=== PATIENT | female | born 1990 | race Caucasian/White ===

== ENCOUNTER 2021-08-25 09:08 | Emergency (ER) | payer OTHER, SELFPAY ==
--- NOTE | ~2021-08-25 | US_ITS ---
EXAMINATION: US PELVIS CLINICAL INFORMATION: Pain. Rule out ovarian cyst. COMPARISON: None TECHNIQUE: Ultrasound of the pelvis is performed using both transabdominal and transvaginal transducers along with Doppler. Transvaginal imaging is performed due to inadequate visualization transabdominally. FINDINGS: The uterus is retroverted and retroflexed and measures 8.4 x 4.3 x 6 cm in dimension. There are 2 hypoechoic lesions in the uterus measuring 1.7 x 1 x 1.7 cm in the left uterine body and 4 mm in the posterior upper uterine body probably representing small fibroids. No other focal uterine lesion is seen. Endometrial thickness is normal measuring 1.2 cm. The right ovary is normal-appearing and measures 3.2 x 2.1 x 2.2 cm. The left ovary measures 3.4 x 2.1 x 2.4 cm. There is a complex left ovarian cyst measuring 2.3 x 1.7 x 2.4 cm. This is irregularly-shaped with thickened wall and likely represents an involuting physiologic cyst. There is a small amount of fluid in the pelvis. US/US pelvic and transvaginal IMPRESSION: Small uterine fibroids. 2.3 x 1.7 x 2.4 cm complex left ovarian cyst likely representing an involuting physiologic cyst.
[2021-08-25 10:05] VITALS: BP 132/91; PULSE 75; RESP 18; TEMP 37.1; O2SAT 97; BMI 32.1
--- NOTE | 2021-08-25 10:45 | ED.ABDPAIN ---
HPI - Abdominal Pain General Chief Complaint: Abdominal Pain Stated Complaint: Lower abd pain Time Seen by Provider: 08/25/21 10:32 Source: patient Mode of arrival: ambulatory Limitations: no limitations History of Present Illness HPI narrative: 31-year-old female came in for evaluation of abdominal pain. Lower abdominal pain started about a month ago, pain is intermittent, localized to the suprapubic area with no radiation, moderate 3/10, no aggravating factor, no relieving factor, frequent urination patient reported drinking plenty of water. Had 1 time unprotected sex 2 months ago but decline vaginal bleeding or discharge, patient has been tested for STD and had a detailed pelvic exam by her obstetrics and gynecology professor doctor reportedly was negative. Related Data Allergies Allergy/AdvReac Type Severity Reaction Status Date / Time No Known Allergies Allergy Verified 08/25/21 09:32 [No Known Allergies*] Review of Systems Review of Systems All other systems are reviewed and are negative Constitutional: Reports as per HPI and Reports no additional constitutional complaints Eyes: Reports as per HPI and Reports no additional eye complaints Reports system reviewed and no additional complaints, except as documented Cardiovascular: Reports as per HPI and Reports no additional cardiovascular complaints Respiratory: Reports as per HPI and Reports no additional respiratory complaints Gastrointestinal: Reports as per HPI and Reports no additional gastrointestinal complaints Genitourinary: Reports no additional female genitourinary complaints Musculoskeletal: Reports no additional musculoskeletal complaints Skin/Breast: Reports system reviewed and no additional complaints, except as docu Psychiatric: Reports no additional psychiatric complaints Endocrine: Reports no additional endocrine complaints Hematologic/Lymphatic: Reports no additional hematologic/lymphatic complaints Allergic/Immunologic: Reports no additional allergic/immunologic complaints Reports system reviewed and no additional complaints, except as documented and Reports Abnormal speech present [facility] Past Medical History Medical History No known health problems Social History Social History Alcohol intake: current Alcohol intake frequency: holidays/special occasions only Patient Tobacco Use Status: Current someday Tobacco user Use of substances other than those prescribed or required for medical reasons: No Advance Directives: No Physical Exam ED Vital Signs: Vital Signs - 24 hr 08/25/21 10:05 08/25/21 11:15 08/25/21 14:00 Temperature 98.8 F 98.3 F Pulse Rate 75 68 71 Respiratory Rate 18 18 16 Blood Pressure 132/91 H 122/75 127/90 H Pulse Oximetry 97 99 97 BMI result Body Mass Index 32.1 Vital signs have been reviewed as appeared to be correct. Blood pressure normal. Heart rate normal. Respiration rate normal. Temperature normal. Oxygen saturation normal. Appearance: Alert. Oriented X3. No acute distress. Head: Normal external exam. Normocephalic. Atraumatic. No Barber signs noted. No raccoon eyes noted Eyes: PERRLA. EOMI. Conjunctiva and sclera normal. Eyelids normal. ENT: TM's Normal. Pharynx normal. Uvula midline. Moist mucous membranes. No trismus noted. No drooling noted. No muffled voice noted. Neck: Normal inspection. Neck supple. FROM. No adenopathy. Thyroid Normal. No meningeal signs. No neck mass noted. CVS: Normal heart rate and rhythm. Heart sound normal. No murmurs noted. Pulses normal throughout. Respiratory: No respiratory distress. Painless inspiration. Breath sounds normal. No wheezes/rales/rhonchi noted. Chest nontender. No accessory muscle usage noted or decreased air movement noted. Abdomen: Soft and nontender. Bowel sounds normal in all 4 quadrants. No distention noted. No organomegaly noted. No visible injury noted. Pelvic exam: Deferred for ultrasound. Back: No CVA tenderness. Full range of motion noted. Skin: Skin warm and dry. Normal skin color. Normal skin turgor. No rashes/lesions/lacerations noted. Extremities: No lower extremity edema. Extremities exhibit normal range of motion. Extremities nontender. Neuro: Oriented X 3. Cranial nerve exam: II-XII are grossly intact No motor deficit. No sensory deficit. Reflexes normal. Course Course Course Narrative: Assessment and plan. A month of lower abdominal/pelvic pain. Patient has been evaluated by her own OBGYN and tested negative for STD, declined any symptoms of frequency or dysuria, abdominal exam/labs are unremarkable, pelvic ultrasound revealed small physiological left ovarian cyst. Finding were discussed with the patient patient was instructed to keep monitoring her symptoms which should disappear with using NSAIDs otherwise to follow up with her OBGYN for re-evaluation. MDM - Abdominal Pain Lab Data Attestation: I reviewed the patient's lab results. Result diagrams: 08/25/21 10:54 08/25/21 10:54 Labs: Lab Results 08/25/21 08/25/21 08/25/21 Range/Units 10: 10:22 10:54 WBC 3.0 L (4.8-10.8) X10*3/uL RBC 4.20 (4.20-5.50) X10*6/uL Hgb 12.4 (12.0-16.0) g/dl Hct 38.0 (37.0-47.0) % MCV 90.5 (80.0-98.0) fL MCH 29.5 (27.0-33.0) pg MCHC 32.6 (31.0-35.0) g/dl RDW 12.3 (11.0-16.0) % Plt Count 208 (160-400) X10*3/uL MPV 11.0 (9.4-12.3) fL Immature Gran % (Auto) 0.3 (0.0-0.4) % Neut % (Auto) 73.3 H (45-73) % Lymph % (Auto) 8.7 L (20-40) % [place] % (Auto) 15.1 H (2-11) % Eos % (Auto) 2.3 (0-4) % Baso % (Auto) 0.3 (0-2) % Lymph # (Auto) 0.3 L (1.2-4.9) X10*3/uL [place] # (Auto) 0.5 (0.1-1.2) X10*3/uL Eos # (Auto) 0.1 (0.0-0.4) X10*3/uL Baso # (Auto) 0.0 (0.0-0.2) X10*3/uL Abs Immat Gran (auto) 0.01 (0.00-0.03) X10*3/uL Absolute Neuts (auto) 2.2 (2.0-8.3) x10*3/uL Absolute Nucleated RBC 0.000 (0.0-0.012) X10*3/uL Nucleated RBC % (auto) 0.0 (0.0-0.2) /100WBC Sodium (135-145) mmol/L Potassium (3.3-5.1) mmol/L Chloride (96-108) mmol/L Carbon Dioxide (22-29) mmol/L Anion Gap (12-20) BUN (9-16) mg/dL Creatinine (0.5-1.4) mg/dL Estim Creat Clear Calc Estimated GFR Random Glucose (60-115) mg/dL Calcium (8.4-10.2) mg/dL Total Bilirubin (0.0-1.0) mg/dL Direct Bilirubin (0.0-0.5) mg/dL AST (5-31) U/L ALT (0-31) U/L Alkaline Phosphatase (39-117) U/L Total Protein (6.5-8.0) g/dL Albumin (3.5-5.0) g/dL Lipase (8-78) U/L Urine Color YELLOW Urine Appearance CLEAR Urine pH 6.5 (5.0-8.0) Ur Specific [place] 1.020 (1.005-1.025) Urine Protein NEG (NEG-TRACE) MG/DL Urine Glucose (UA) NEG (NEG) MG/DL Urine Ketones NEG (NEG) MG/DL Urine Blood NEG (NEG) Urine Nitrite NEG (NEG) Ur Leukocyte Esterase NEG (NEG) Urine Test NEGATIVE (NEGATIVE) 08/25/21 Range/Units 10:54 WBC (4.8-10.8) X10*3/uL RBC (4.20-5.50) X10*6/uL Hgb (12.0-16.0) g/dl Hct (37.0-47.0) % MCV (80.0-98.0) fL MCH (27.0-33.0) pg MCHC (31.0-35.0) g/dl RDW (11.0-16.0) % Plt Count (160-400) X10*3/uL MPV (9.4-12.3) fL Immature Gran % (Auto) (0.0-0.4) % Neut % (Auto) (45-73) % Lymph % (Auto) (20-40) % Christian % (Auto) (2-11) % Eos % (Auto) (0-4) % Baso % (Auto) (0-2) % Lymph # (Auto) (1.2-4.9) X10*3/uL [place] # (Auto) (0.1-1.2) X10*3/uL Eos # (Auto) (0.0-0.4) X10*3/uL Baso # (Auto) (0.0-0.2) X10*3/uL Abs Immat Gran (auto) (0.00-0.03) X10*3/uL Absolute Neuts (auto) (2.0-8.3) x10*3/uL Absolute Nucleated RBC (0.0-0.012) X10*3/uL Nucleated RBC % (auto) (0.0-0.2) /100WBC Sodium 139 (135-145) mmol/L Potassium 4.3 (3.3-5.1) mmol/L Chloride 107 (96-108) mmol/L Carbon Dioxide 27 (22-29) mmol/L Anion Gap 9 L (12-20) BUN 10 (9-16) mg/dL Creatinine 0.71 (0.5-1.4) mg/dL Estim Creat Clear Calc 143.7 Estimated GFR > 60 Random Glucose 104 (60-115) mg/dL Calcium 9.3 (8.4-10.2) mg/dL Total Bilirubin 0.5 (0.0-1.0) mg/dL Direct Bilirubin < 0.2 (0.0-0.5) mg/dL AST 16 (5-31) U/L ALT 32 H (0-31) U/L Alkaline Phosphatase 65 (39-117) U/L Total Protein 6.5 (6.5-8.0) g/dL Albumin 4.2 (3.5-5.0) g/dL Lipase 16 (8-78) U/L Urine Color Urine Appearance Urine pH (5.0-8.0) Ur Specific [place] (1.005-1.025) Urine Protein (NEG-TRACE) MG/DL Urine Glucose (UA) (NEG) MG/DL Urine Ketones (NEG) MG/DL Urine Blood (NEG) Urine Nitrite (NEG) Ur Leukocyte Esterase (NEG) Urine Test (NEGATIVE) Imaging Data Pelvic ultrasound: Attestation: I personally reviewed and interpreted this imaging study as follows: Radiologist's impression: Small uterine fibroids. 2.3 x 1.7 x 2.4 cm complex left ovarian cyst likely representing an involuting physiologic cyst. Discharge Plan Discharge Clinical Impression: Pelvic pain Patient Disposition: Home, Self-Care Instructions: Pelvic Pain in Women (ED) Referrals: Thang Carl MD [Primary Care Provider] -
[2021-08-25 10:59] LABS: MANUAL DIFF FLAG NO
[2021-08-25 11:00] LABS: Basophils Percent Auto 0.3 % (0-2); Eosinophils Absolute Auto 0.1 X10*3/uL (0.0-0.4); Eosinophils Percent Auto 2.3 % (0-4); Hemoglobin 12.4 g/dl (12.0-16.0); Imm Gran Abs Auto 0.01 X10*3/uL (0.00-0.03); Imm Gran Pct Auto 0.3 % (0.0-0.4); Lymphocytes Absolute Auto 0.3 X10*3/uL (1.2-4.9); Lymphocytes Percent Auto 8.7 % (20-40); Mean Corpuscular HGB Conc 32.6 g/dl (31.0-35.0); Mean Corpuscular Hemoglobin 29.5 pg (27.0-33.0); Mean Corpuscular Volume 90.5 fL (80.0-98.0); Monocytes Absolute Auto 0.5 X10*3/uL (0.1-1.2); Monocytes Percent Auto 15.1 % (2-11); Neutrophils Absolute Auto 2.2 x10*3/uL (2.0-8.3); Neutrophils Percent Auto 73.3 % (45-73); Platelet Count 208 X10*3/uL (160-400); Red Cell Distribution Width 12.3 % (11.0-16.0)
[2021-08-25 11:03] LABS: UPreg QC Valid YES; Urine Pregnancy NEGATIVE (NEGATIVE)
[2021-08-25 11:06] LABS: Appearance Urine CLEAR; Color Urine YELLOW; Glucose Urine UA NEG (NEG); Leukocyte Esterase Urine NEG (NEG); Nitrite Urine NEG (NEG); PH 6.5 (5.0-8.0); Urine Blood NEG (NEG); Urine Ketones NEG (NEG); Urine Protein NEG (NEG-TRACE)
[2021-08-25 11:15] VITALS: BP 122/75; PULSE 68; RESP 18; TEMP 36.8; O2SAT 99
--- NOTE | 2021-08-25 11:17 | PC.NURSE ---
patient a&ox3, vss, c/o 07/16 lower abd pain, labs drawn, call khan within reach, pt awaiting radiology, will continue to monitor.
[2021-08-25 11:21] LABS: Alanine Aminotransferase 32 U/L (0-31); Albumin Level 4.2 g/dL (3.5-5.0); Alkaline Phosphatase 65 U/L (39-117); Anion Gap 9 (12-20); Aspartate Amino Transferase 16 U/L (5-31); Bilirubin Direct < 0.2 mg/dL (0.0-0.5); Bilirubin Total 0.5 mg/dL (0.0-1.0); Blood Urea Nitrogen 10 mg/dL (9-16); Calcium 9.3 mg/dL (8.4-10.2); Carbon Dioxide 27 mmol/L (22-29); Chloride 107 mmol/L (96-108); Creatinine Clr Calc Pharmacy 143.7; Estimated Glomerular Filt Rate > 60; Glucose Random 104 mg/dL (60-115); Lipase 16 U/L (8-78); Potassium 4.3 mmol/L (3.3-5.1); Sodium 139 mmol/L (135-145); Total Protein 6.5 g/dL (6.5-8.0)
[2021-08-25 14:00] VITALS: BP 127/90; PULSE 71; RESP 16; O2SAT 97
--- NOTE | 2021-08-25 14:19 | PC.NURSE ---
pt a&ox3, vss, pt denies pain at this time, provider in room reviewing u/s results with pt. discharge pending.
== END 2021-08-25 14:37 | disposition home or self-care (01) ==
PROVIDERS: Emergency Provider Emergency Medicine; PCP Internal Medicine
DX: R10.2 Pelvic and perineal pain (principal); Z79.899 Other long term (current) drug therapy
CPT/HCPCS: 36415; 76830; 76856; 80048; 80076; 81003; 81025; 83690; 85025; 99284

== ENCOUNTER 2023-05-15 16:39 | Observation (INO) | payer MEDICAID, SELFPAY ==
[2023-05-15 16:43] VITALS: BP 132/85; PULSE 76; RESP 18; TEMP 36.6; O2SAT 98; BMI 27.1
--- NOTE | 2023-05-15 16:58 | ED.NEUROSD ---
HPI - Neuro Symptoms/Deficit General Chief Complaint: Stroke Stated Complaint: headache x1 wk,facial numbness,mouth drooping Time Seen by Provider: 05/15/23 16:52 Source: patient Mode of arrival: ambulatory Limitations: no limitations History of Present Illness HPI Narrative: Patient is a 33-year-old female with history of MS presenting to the emergency department with complaint of right sided facial numbness and droop since around noon yesterday as well as headache for the past week. States headache has been moderate, waxing and waning in intensity. Denies headache worst at onset, denies worst headache of life. Describes as a pressure to right side of head and right side of face. Has taken Tylenol and ibuprofen with some relief. States she sees Dr. Mona Rosenthal for her MS, but missed a recent appointment in early April, is only taking sertraline currently. She is also 2 months , intermittently. Reports mild blurred vision to right eye, denies any other visual changes. Denies chest pain, palpitations, shortness of breath. Denies any abdominal pain, nausea, vomiting, diarrhea. Denies any recent rashes or tick bites. States she does have endorse/outdoor cats. Denies recent fevers, body aches, cough or sore throat. Onset (ago): day(s) Location: right face History of same: No Severity: moderate Quality: weak and numb Relieving factors: none Exacerbating factors: none Context: gradual onset On Anticoagulants: No Treatments Prior to Arrival: none Related Data Allergies Allergy/AdvReac Type Severity Reaction Status Date / Time Iodinated Contrast Media Allergy Hives Verified 05/15/23 16:43 [Contrast Dye] Review of Systems Review of Systems: As per HPI. Yes all other systems are reviewed and are negative Constitutional: Constitutional: Reports as per HPI ENT: Reports Normal hearing present Neurologic: Reports Normal hearing present [facility] Past Medical History Onset Date is defined in the Problem List Problems that require an onset date and time if occurred within 24 hrs of arrival to the ED Aortic Dissection and Rupture; Neurologic impairment; Cardiopulmonary Arrest; Endotracheal Intubation; Insertion or Replacement of Mechanical Circulatory Assist Device Medical History No known health problems Social History Social History Alcohol intake: current Alcohol intake frequency: a few times a week Patient Tobacco Use Status: Current someday Tobacco user Smoked in Last 30 Days: No Use of substances other than those prescribed or required for medical reasons: No Advance Directives: No Advance Directives Information Provided: No Patient : No Physical Exam Vital Signs: Vital Signs: Last Vital Signs Temp 97.8 F 05/15/23 16:43 Pulse 68 05/15/23 18:46 Resp 12 05/15/23 18:46 BP 104/60 05/15/23 18:46 Pulse Ox 98 05/15/23 18:46 O2 Del Method Room Air 05/15/23 18:46 BMI result Body Mass Index 27.1 Vital signs have been reviewed and appear to be correct. Blood pressure normal. Heart rate normal. Respiratory rate normal. Temperature normal. Oxygen saturation normal. Const: General: cooperative, healthy appearing and no acute distress Orientation/consciousness: oriented to person, oriented to place, oriented to time and patient oriented x3 Limitations: no limitations HEENT: Head: Yes normocephalic and Yes atraumatic Ears: external ears normal General nose exam: Normal external nose present Face and sinus: Yes face symmetric Mouth: oropharynx normal and moist mucous membranes Throat: Yes uvula midline Eyes: Pupils: Equal, round and reactive pupils present Neck: Neck: Yes normal visual inspection, Yes no meningeal signs and Yes supple Resp: Effort & Inspection: normal respiratory effort and able to speak in complete sentences Auscultation: clear to auscultation bilaterally Cardio: Rate: regular rate Rhythm: regular rhythm Heart sounds: S1 normal heart sound present and S2 normal heart sound present GI: Palpation (GI): Soft to palpation and nontender Auscultation: normoactive bowel sounds : General: Yes no CVA tenderness Back/Spine/Pelvis: Back: no CVA tenderness Skin: General skin exam: elasticity normal and turgor normal Neuro: General: oriented to person, oriented to place, oriented to time, patient oriented x3, gait normal, tone normal, moves all extremities, Normal light touch and pain sensation, no meningeal signs and no focal motor deficits Cranial nerves: Yes Intact sense of smell present, Yes Equal, round and reactive pupils present, Yes Normal accommodation reflex present, Yes Bilaterally intact EOM present, Yes Nystagmus not present, Yes Midline tongue present, Yes Normal gag reflex present, Yes Normal hearing present, Yes Ability to bilaterally rotate head present, Yes Ability to bilaterally elevate shoulders present, Yes Individual cranial nerve findings present VIII: abnormal (right) and No Altered sense of smell present Cognition (Neuro): normal cognition Gait exam (Neuro): Normal gait present Motor exam (neuro): 5/5 motor strength present throughout, Pronator motor function not present, no tremor noted, Normal motor muscle tone present throughout and Motor abnormalities not present Sensory Exam: Normal double simultaneous stimulation for sensation Coordination: [id number] test normal and [id number] test normal Pupils: Normal pupillary reactivity/response: bilateral Extrem: General: Yes full ROM, Yes no pedal edema and Yes no calf tenderness Psych: Mental Status: mental status grossly normal Affect: normal affect Thought process: Normal thought process present Medical Decision Making Medical Decision Making MDM Narrative: Patient is a 33-year-old female with history of MS presenting to the emergency department with complaint of right sided facial numbness and droop since around noon yesterday as well as headache for the past week. On exam patient is awake, A+Ox3, VS WNL, afebrile, physical exam findings as above. Given reported symptoms and physical exam findings, initial differential includes Boss's palsy, MS flare, migraine, malignancy/mass. Less likely CVA/ICH but will obtain CT head. Patient is not currently hypertensive but will assess for possible preeclampsia/HELLP. Labs notable for no leukocytosis, no anemia, mildly elevated ALT, normal AST and bilirubin, no electrolyte abnormalities. Bp remains normal while in the ED. Viral swabs negative. Tick panel pending. CT notable for rounded hypodense focus of the right frontoparietal lobe of unclear etiology, may represent infarction vs vascular malformation vs infectious/inflammatory vs oncologic etiology. My interpretation is in agreement with the radiologist's interpretation. Case discussed with Dr. Montero from neuro who recommends admission for MRI tomorrow, states patient does not need emergent MRI tonight. Results and plan discussed with patient who is agreeable to admission. Dr. Fritz accepts admission. Differential Diagnosis Differential Diagnoses: The differential diagnosis associated with the presentation includes As per MDM Admission/Observation Consideration of admission/observation: Escalation of care including admission/observation considered Consult Healthcare Provider Management of the patient was discussed with: Hospitalist (Dr. Fritz) and Optical Goods Worker (Dr. Montero) Lab Data [facility] Lab Attestation statement: I reviewed the patient's lab results. As per MDM 05/15/23 17:05 05/15/23 17:05 Labs: Lab Results 05/15/23 05/15/23 05/15/23 Range/Units 17:05 17:20 17:24 WBC 5.8 (4.8-10.8) X10*3/uL RBC 4.20 (4.20-5.50) X10*6/uL Hgb 12.1 (12.0-16.0) g/dl Hct 36.4 L (37.0-47.0) % MCV 86.7 (80.0-98.0) fL MCH 28.8 (27.0-33.0) pg MCHC 33.2 (31.0-35.0) g/dl RDW 13.0 (11.0-16.0) % Plt Count 251 (160-400) X10*3/uL MPV 10.7 (9.4-12.3) fL Immature Gran % (Auto) 0.7 H (0.0-0.4) % Neut % (Auto) 61.7 (45-73) % Lymph % (Auto) 24.5 (20-40) % [place] % (Auto) 10.7 (2-11) % Eos % (Auto) 1.7 (0-4) % Baso % (Auto) 0.7 (0-2) % Lymph # (Auto) 1.4 (1.2-4.9) X10*3/uL [place] # (Auto) 0.6 (0.1-1.2) X10*3/uL Eos # (Auto) 0.1 (0.0-0.4) X10*3/uL Baso # (Auto) 0.0 (0.0-0.2) X10*3/uL Abs Immat Gran (auto) 0.04 H (0.00-0.03) X10*3/uL Absolute Neuts (auto) 3.6 (2.0-8.3) x10*3/uL Absolute Nucleated RBC 0.000 (0.0-0.012) X10*3/uL Nucleated RBC % (auto) 0.0 (0.0-0.2) /100WBC PT 10.5 L (11.1-13.3) SEC INR 0.9 (0.9-1.1) Sodium 138 (135-145) mmol/L Potassium 4.0 (3.3-5.1) mmol/L Chloride 105 (96-108) mmol/L Carbon Dioxide 25 (22-29) mmol/L Anion Gap 12 (12-20) BUN 16 (9-16) mg/dL Creatinine 0.70 (0.5-1.4) mg/dL Estim Creat Clear Calc 131.8 Estimated GFR > 60 POC Glucose 84 (60-115) mg/dL Random Glucose 90 (60-115) mg/dL Calcium 9.4 (8.4-10.2) mg/dL Magnesium 2.1 (1.6-2.6) mg/dL Total Bilirubin 0.2 (0.0-1.0) mg/dL AST 24 (5-31) U/L ALT 46 H (0-31) U/L Alkaline Phosphatase 71 (39-117) U/L Total Protein 7.1 (6.5-8.0) g/dL Albumin 4.3 (3.5-5.0) g/dL Beta HCG, Quant < 2 mIU/mL Urine Color Yellow Urine Appearance Cloudy Urine pH 6.5 (5.0-9.0) Ur Specific [place] 1.025 (1.005-1.025) Urine Protein Negative (Neg-Trace) mg/dL Urine Glucose (UA) Negative (Negative) mg/dL Urine Ketones Negative (Negative) mg/dL Urine Blood Negative (Negative) Urine Nitrite Negative (Negative) Ur Leukocyte Esterase Trace H (Negative) Urine RBC 0-2 (0-2) /HPF Urine WBC 0-5 (0-5) /HPF Ur Squamous Epith Cells 11-20 (0-2) /HPF Urine Bacteria 2+ (None Seen) Hyaline Casts 0-2 (0-2) /LPF Influenza Type A (PCR) NEGATIVE (Negative) Influenza Type B (PCR) NEGATIVE (Negative) RSV RNA Qual (PCR) NEGATIVE (Negative) SARS-CoV-2 RNA (RT-PCR) NEGATIVE (Negative) Independent Interpretation I performed an independent interpretation of an: EKG (normal sinus rhythm, rate 70bpm, normal GA and QT intervals) and CT Scan Interpretation: hypodense focus in right frontoparietal lobe on CT Radiology Impression Discussion of test interpretation with radiology: I have reviewed the radiologist's reading. Radiologist Impression: CT/CT head/brain wo IV con IMPRESSION: Rounded hypodense focus in the region of the right frontoparietal lobe abutting the lateral margin of the centrum semiovale measuring 2.1 x 1.2 x 1.1 cm of unclear etiology may reflect infarction versus vascular malformation versus infectious/inflammatory versus oncologic etiology. Consider further evaluation with MRI. This critical result was discussed with Doris Samuels NP by telephone on 05/15/2023 7:37 PM and it was ascertained that the content and urgency of the report was understood at the time of direct communication. External Record Review External record reviewed: Inpatient record, Office record and Outpatient record NIH Stroke Scale Internal: Initial- Upon Arrival Time: 17:03 Level of Consciousness: Alert Level of Consciousness Questions: Answers both questions correctly Level of Consciousness Commands: Performs both tasks correctly Best Gaze: Normal Visual: No visual loss Facial Palsy: Partial paralysis (right, including forehead) Motor Arm (Right): No drift Motor Arm (Left): No drift Motor Leg (Right): No drift Motor Leg (Left): No drift Limb Ataxia: Absent Sensory: Normal Best Language: No aphasia Dysarthia: Normal Extinction and Inattention: No abnormality Score: 2 Discharge Plan Discharge Clinical Impression: Facial paralysis on right side, Headache Patient Disposition: Admitted As Inpatient
--- NOTE | 2023-05-15 17:10 | PC.NURSE ---
a&ox4, vss and up to date. pt presents to the ED w/ questionable stroke like sx. stroke alert not called for pt. pt comes in with headache x 1 week/right sided facial droop/numbness/tingling x 1 day. pt has a hx of MS so states she waited to come in d/t thinking sx were related to diagnosis of MS. tech obtained labs/performed ekg. pt verbalizes numbness/tingling in bilateral LE but ambulates to the bathroom with a strong steady gait. no assistance needed. urine obtained/sent to lab. POC = 84mg/dL. pt passed nursing swallow screen w/o difficulty. neuros intact. bilateral equal strength noted. no sob/wob noted. respirations even and unlabored. pt waiting to go to CT at this time. call khan placed within reach.
[2023-05-15 18:46] VITALS: BP 104/60; PULSE 68; RESP 12; O2SAT 98
--- NOTE | 2023-05-15 18:47 | PC.NURSE ---
vss and up to date. nsr on the pasting machine operator. pt c/o 07/16 headache at this time. states sensation is pressure like. denies any other sx at this time. face symmetrical. neuros intact. pt awaiting results of head CT at this time. respirations remain even and unlabored. call khan placed within reach.
[2023-05-15 20:34] VITALS: BP 122/68; PULSE 72; RESP 18; O2SAT 97
--- NOTE | 2023-05-15 20:41 | PM.IMHP ---
History of Present Illness Date of Service: 05/15/23 Attending physician on admission: Boom Fritz Chief Complaint: Headache x1 week, right-sided facial droop Pt is a 33-year-old female with a PMH significant for?MS, depression, and 2 months who presents to the ED for evaluation of right-sided headache x1 week and right-sided facial numbness since yesterday afternoon. Pt states headache began gradually one week ago and has waxed and waned since inception, though never fully resolved. Describes headache as a kind of ?pressure? on the right side of her head. Pt has previously experienced similar episodes of headaches though not for the past 1+ year, so thought little of it until yesterday when she felt a numbness to the right side of her face. Denies knowing of any facial weakness until examined int he ED. Also reports mild increased blurriness to right eye. Patient denies any drooling, dysarthria, or dysphagia. Denies any difficulty word-finding or moments of confusion. Patient has long history of chronic numbness and tingling and weakness in extremities since being diagnosed with MS. States has had right-sided leg weakness for at least the past 3 months. Denies fever, chills, nausea, vomiting, abdominal pain. No shortness of breath. Patient notes she is overdue by around 1 year for an MRI of her brain. Apparently missed her most recent appointment in early April with Dr. Mona Rosenthal for her MS. In the ED pt was hemodynamically stable with vitals WNL. Labs were grossly unremarkable. No leukocytosis. Stable H&H. No electrolyte abnormalities. Renal function WNL. UA negative for UTI. Tested negative for influenza type a and B, RSV, COVID. Tick panel pending. CT of head found rounded hypodense focus in the region of the right frontoparietal lobe abutting the lateral margin of the centrum semiovale of unclear etiology, may reflect infarction versus vascular malformation versus infectious/inflammatory versus oncologic etiology. EKG demonstrated normal sinus rhythm without evidence of ST elevations or depressions. Pt will be admitted to the hospital under observation for further evaluation of right-sided facial numbness and weakness and abnormal findings on CT of head. Review of Systems Review of Systems: Right-sided facial numbness since yesterday Gradual onset right-sided headache x1 week Right eye blurriness Chronic numbness and tingling in extremities Chronic right lower leg weakness Denies dysarthria, dysphagia, drooling Denies confusion No thunderclap headache [facility] Medical History (Updated 05/15/23 @ 21:43 by AMALIA Galindo) Multiple sclerosis No known health problems Social History Alcohol intake: current Alcohol intake frequency: a few times a week Patient Tobacco Use Status: Current someday Tobacco user Smoked in Last 30 Days: No Use of substances other than those prescribed or required for medical reasons: No Advance Directives: No Advance Directives Information Provided: No Patient : No Meds Allergies Allergy/AdvReac Type Severity Reaction Status Date / Time Iodinated Contrast Media Allergy Hives Verified 05/15/23 16:43 [Contrast Dye] Active Medications: Current Medications Acetaminophen (Acetaminophen 325 Mg Tablet) 650 mg PO Q6H PRN PRN Reason: Pain, Mild (Pain Scale 1-3) Enoxaparin Sodium (Enoxaparin Sodium 40 Mg/0.4 Ml Syringe) 40 mg SUBCUT Q24H BERNARDA Melatonin (Melatonin 3 Mg Tablet) 6 mg PO BEDTIME PRN PRN Reason: Insomnia Ondansetron HCl (Ondansetron Hcl 4 Mg/2 Ml Vial) 4 mg IVPUSH Q8H PRN PRN Reason: Nausea and Vomiting Sodium Chloride (0.9 % Sodium Chloride Flush 3 Ml Syringe) 3 ml IVFLUSH QSHIFT BERNARDA Physical Exam Vital Signs and Narrative: Vital Signs: Last Vital Signs Temp 97.8 F 05/15/23 16:43 Pulse 68 05/15/23 18:46 Resp 12 05/15/23 18:46 BP 104/60 05/15/23 18:46 Pulse Ox 98 05/15/23 18:46 O2 Del Method Room Air 05/15/23 18:46 BMI result Body Mass Index 27.1 Constitutional: Alert, in no acute distress. Mental Status: Oriented to person, place and time. Eyes: Pupils are equal, round, and reactive to light. Ear, Nose, and Throat: Oropharynx clear, mucous membranes moist. Ears and nose without deformities. Trachea midline. Respiratory: Clear to auscultation bilaterally. No wheezing, rales, or rhonchi. Cardiovascular: S1, S2 regular. No murmurs, rubs, or gallops. Gastrointestinal: Abdomen soft, non-tender, non-distended. Normal bowel sounds. Neurologic: Unable to puff out right side of mouth or raise right eyebrow. Moves all extremities spontaneously. Preserved strength and sensation to light touch of upper and lower extremities bilaterally. Skin: Warm, dry. Musculoskeletal: No cyanosis or clubbing. Extremities: No edema. Psychiatric: Normal mood and affect. Results Labs 05/15/23 17:05 05/15/23 17:05 Labs: Laboratory Results - last 24 hr 05/15/23 05/15/23 05/15/23 17:05 17:20 17:24 MCV 86.7 MCH 28.8 MCHC 33.2 RDW 13.0 Plt Count 251 MPV 10.7 Immature Gran % (Auto) 0.7 H Neut % (Auto) 61.7 Lymph % (Auto) 24.5 [place] % (Auto) 10.7 Eos % (Auto) 1.7 Baso % (Auto) 0.7 Lymph # (Auto) 1.4 [place] # (Auto) 0.6 Eos # (Auto) 0.1 Baso # (Auto) 0.0 Abs Immat Gran (auto) 0.04 H Absolute Neuts (auto) 3.6 Absolute Nucleated RBC 0.000 Nucleated RBC % (auto) 0.0 PT 10.5 L INR 0.9 Anion Gap 12 Estim Creat Clear Calc 131.8 Estimated GFR > 60 POC Glucose 84 Random Glucose 90 Calcium 9.4 Magnesium 2.1 Total Bilirubin 0.2 AST 24 ALT 46 H Alkaline Phosphatase 71 Total Protein 7.1 Albumin 4.3 Beta HCG, Quant < 2 Urine Color Yellow Urine Appearance Cloudy Urine pH 6.5 Ur Specific Toney 1.025 Urine Protein Negative Urine Glucose (UA) Negative Urine Ketones Negative Urine Blood Negative Urine Nitrite Negative Ur Leukocyte Esterase Trace H Urine RBC 0-2 Urine WBC 0-5 Ur Squamous Epith Cells 11-20 Urine Bacteria 2+ Hyaline Casts 0-2 Influenza Type A (PCR) NEGATIVE Influenza Type B (PCR) NEGATIVE RSV RNA Qual (PCR) NEGATIVE SARS-CoV-2 RNA (RT-PCR) NEGATIVE Imaging Radiologist's Impressions: Impressions Head CT 05/15/23 18:06 IMPRESSION: Rounded hypodense focus in the region of the right frontoparietal lobe abutting the lateral margin of the centrum semiovale measuring 2.1 x 1.2 x 1.1 cm of unclear etiology may reflect infarction versus vascular malformation versus infectious/inflammatory versus oncologic etiology. Consider further evaluation with MRI. This critical result was discussed with Doris Samuels NP by telephone on 05/15/2023 7:37 PM and it was ascertained that the content and urgency of the report was understood at the time of direct communication. Assessment and Plan (1) Facial paralysis on right side: Status: Acute Plan Pt is a 33-year-old female with a PMH significant for?MS, depression, and 2 months who presents to the ED for evaluation of right-sided headache x1 week and right-sided facial numbness since yesterday afternoon. Pt will be admitted to the hospital under observation for further evaluation of right-sided facial numbness and weakness and abnormal findings on CT of head. Right-sided facial weakness and drooping CT of head showed rounded hypodense focus in the region of the right frontoparietal lobe of unclear etiology: May reflect infarction versus vascular malformation versus infectious/inflammatory versus oncologic etiology Boss's palsy versus MS exacerbation also on the differential Patient treated with aspirin Will get MRI of head/brain tomorrow morning Will check tick panel Neurology consult Will defer any additional imaging or diagnostic testing to neurology MS Patient currently not on any home medications Depression Continue sertraline Full Code Attending:?Dr. Fritz DVT Prophylaxis: Zuri Patient will be admitted to the hospital under observation for further evaluation of right-sided facial numbness and weakness in the setting of abnormal findings on CT of head. Quality Stroke Does the patient have a stroke diagnosis?: No VTE Prior VTE?: No VTE Risk Level:: Medical - moderate - high VTE Device Contraindication: Treatment Not Indicated VTE Drug Contraindication: N/A - Med Ordered
--- NOTE | 2023-05-15 23:16 | PC.NURSE ---
Pt to nurses station stating you guys are going to hate me but I think I am going to leave . Pt further explained how her spouse is having a hard time at home with their 2 month old daughter and how she plans to return in the morning for the MRI. Pt advised that she would have to go through the entire process (minus a CT scan) in the morning due to the discharge all of which she verbalized understanding of. RN meaghan ESTRELLA Lam aware and he states that he will be down to speak with her.
--- NOTE | 2023-05-15 23:35 | PC.NURSE ---
MD Fritz to bedside to discuss pt's request for discharge AMA. After conversation per MD Fritz the pt is now agreeable to stay. Rn will continue to monitor the pt
[2023-05-16 05:31] VITALS: BP 114/69; PULSE 73; RESP 15; TEMP 36.7; O2SAT 98
[2023-05-16 07:24] LABS: Anion Gap 13 (12-20); Blood Urea Nitrogen 12 mg/dL (9-16); Calcium 9.7 mg/dL (8.4-10.2); Carbon Dioxide 28 mmol/L (22-29); Chloride 104 mmol/L (96-108); Creatinine Clr Calc Pharmacy 128.2; Estimated Glomerular Filt Rate > 60; Glucose Random 82 mg/dL (60-115); Potassium 4.3 mmol/L (3.3-5.1); Sodium 141 mmol/L (135-145)
[2023-05-16 07:41] VITALS: BP 115/87; PULSE 75; RESP 18; O2SAT 99
--- NOTE | 2023-05-16 07:48 | PC.NURSE ---
pt alert and oriented, skin pwd, respirations even and unlabored, ls clear, pt reports for about three weeks or so having right sided head pressure but denies dizziness, no visual hand drift, hand grasp strong and equal but a very slight right facial droop, ns on the monitor and vs stable
--- NOTE | 2023-05-16 07:49 | PHA.MEDREC ---
Pharmacy Consult ? Medication Reconciliation Pharmacy has completed the medication reconciliation. Spoke to patient at bedside
--- NOTE | 2023-05-16 08:48 | MHC.CM.PN ---
CM met with Patient at bedside and addressed HERRMANN with her; original was given to Patient and a copy will be placed on the chart. 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 Home self care is the goal and CM has initiated and will follow for dc planning. PCP is from [facility] in [place].
--- NOTE | 2023-05-16 09:13 | PM.NEUROCN ---
History of Present Illness Data of Consult Service Date: 05/16/23 Primary Care Provider: Unknown Physician HPI Reason for consult: Facial numbness 33 years old woman with remitting relapsing multiple sclerosis that was diagnosed many years ago in [facility] and she was taking Jilenya (fingolimod) until winter when it was stopped because of for plan for . She delivered her baby couple of months ago and has not been taking her medicines during this time. She came to hospital with new onset of right-sided headache and right-sided facial numbness that started at due to before coming to hospital. There was no recent trauma or fever or any sign of urinary tract infection. There was no speech or language difficulty. She has an appointment to see a neurologist next month to discuss starting medicine again. Review of Systems Review of Systems: No recent cold or flu-like illness PMFSH Past Medical History Medical History (Updated 05/16/23 @ 09:18 by Manuel Montero MD) Multiple sclerosis No known health problems Social History Social History Alcohol intake: current Alcohol intake frequency: a few times a week Patient Tobacco Use Status: Never used Tobacco Smoked in Last 30 Days: No Use of substances other than those prescribed or required for medical reasons: No Advance Directives: No Advance Directives Information Provided: No Nutrition Risks: No Nutritional Risk Patient : No service: No Meds Allergies Allergy/AdvReac Type Severity Reaction Status Date / Time Iodinated Contrast Media Allergy Hives Verified 05/15/23 16:43 [Contrast Dye] Active Medications: Current Medications Acetaminophen (Acetaminophen 325 Mg Tablet) 650 mg PO Q6H PRN PRN Reason: Pain, Mild (Pain Scale 1-3) Enoxaparin Sodium (Enoxaparin Sodium 40 Mg/0.4 Ml Syringe) 40 mg SUBCUT Q24H BERNARDA Last Admin: 05/15/23 22:13 Dose: 40 mg Methylprednisolone Sodium Succinate 1,000 mg/ Sodium Chloride 66 mls @ 66 mls/hr IV ONCE ONE Stop: 05/16/23 10:29 Melatonin (Melatonin 3 Mg Tablet) 6 mg PO BEDTIME PRN PRN Reason: Insomnia Ondansetron HCl (Ondansetron Hcl 4 Mg/2 Ml Vial) 4 mg IVPUSH Q8H PRN PRN Reason: Nausea and Vomiting Sertraline HCl (Sertraline Hcl 50 Mg Tablet) 50 mg PO DAILY BERNARDA Sodium Chloride (0.9 % Sodium Chloride Flush 3 Ml Syringe) 3 ml IVFLUSH QSHIFT BERNARDA Last Admin: 05/16/23 07:44 Dose: 3 ml Home Medications Medication Instructions Recorded Confirmed Last Taken Type sertraline 50 mg tablet 50 mg PO DAILY 05/16/23 05/16/23 05/14/23 History Physical Exam Vital Signs: Vital Signs: Last Vital Signs Temp 98.0 F 05/16/23 05:31 Pulse 75 05/16/23 07:41 Resp 18 05/16/23 07:41 BP 115/87 05/16/23 07:41 Pulse Ox 99 05/16/23 07:41 O2 Del Method Room Air 05/16/23 07:41 BMI result Body Mass Index 27.1 Neuro: Other: She is alert and awake with normal spontaneity of speech fluency comprehension and affect. There is mild left-sided facial flatness. There is no obvious focal arm or leg weakness. Speech is normal. Visual alvarado are full. Results Labs 05/16/23 05:03 05/16/23 05:03 Labs: Short CBC 05/15/23 05/16/23 Range/Units 17:05 05:03 WBC 5.8 5.7 (4.8-10.8) X10*3/uL Hgb 12.1 12.7 (12.0-16.0) g/dl Hct 36.4 L 39.1 (37.0-47.0) % Plt Count 251 241 (160-400) X10*3/uL BMP 05/15/23 05/16/23 17:05 05:03 Sodium 138 141 Potassium 4.0 4.3 Chloride 105 104 Carbon Dioxide 25 28 BUN 16 12 Creatinine 0.70 0.72 Calcium 9.4 9.7 Liver Function 05/15/23 Range/Units 17:05 Total Bilirubin 0.2 (0.0-1.0) mg/dL AST 24 (5-31) U/L ALT 46 H (0-31) U/L Alkaline Phosphatase 71 (39-117) U/L Albumin 4.3 (3.5-5.0) g/dL Urine 05/15/23 Range/Units 17:24 Urine Color Yellow Urine Appearance Cloudy Urine pH 6.5 (5.0-9.0) Ur Specific [place] 1.025 (1.005-1.025) Urine Protein Negative (Neg-Trace) mg/dL Urine Glucose (UA) Negative (Negative) mg/dL Her brain MRI revealed multiple lesions suggestive of demyelinating disease, couple of small ones in left frontal area visible on DWI sequence. Her previous MRI in this hospital was in 2009, which was remarkably different from this 1 with almost no lesions. Assessment and Plan (1) Multiple sclerosis: Status: Acute 33 years old woman with remitting relapsing multiple sclerosis stopped taking immunomodulating drug because of . her condition has worsened, which sometime happens. At this time my recommendation is to treat her with Solu-Medrol a g a day for 3 days. She was strongly encouraged and advised to restart immunomodulating agent. She said that she already has an appointment with a neurologist in few weeks and would discuss this matter with her. Procedures Date of Service Date of Service: 05/16/23
--- NOTE | 2023-05-16 09:57 | PC.NURSE ---
patient a&ox3, vitals previously stable, traffic monitor specialist intact nsr on monitor, rt facial droop noted-pt states she has no pain but feels head pressure, pt asking if she can discharge to get home back to her after her solumedrol infusion, this nurse stated she will touch base with hospitalist to see if this is possible.
--- NOTE | 2023-05-16 10:11 | MHC.CM.PN ---
Patient is listed as, self pay, ; a referral has been made to [facility]. CM will follow.
--- NOTE | 2023-05-16 10:56 | PC.NURSE ---
pharmacy brought medications, hung per order, residential monitor intact nsr 70s , pt to discharge after infusion, will continue to monitor
--- NOTE | 2023-05-16 11:04 | MHC.SL.SWA ---
Speech Pathologist Impression: Swallow WFL Risk of Aspiration Due to: Neurological Condition Dysphasia Diet Status: Upgrade to Regular solids and Thin liquids Liquid Consistency and Strategies for Safe Swallow: Liquid Intake Recommendation: Thin Liquid Intake Strategies: Unrestricted Solid Food Consistency: Dietary Recommendations: Regular Additional Modifications to Solid Foods: Pt w/ mild oral phase impairment in the setting of right side facial droop, which is evident at rest and with labial retraction. Lingual movements WFL in symmetry, strength, and ROM. Pt spilled some liquid when bringing the cup to her mouth, but did not evidence anterior bolus loss with further trials. Unremarkable oral preparation on solids. Swallow otherwise deemed to be within functional limits. Recommend UPGRADE from NPO to REGULAR texture solids and THIN liquids, pills WHOLE with LIQUID. Pt denies having any difficulties swallowing historically and presently. Please re-refer if there are any changes or if STACKER TENDER can be of further assistance. Oral Medication Intake: Whole with Liquid Please contact the pharmacy regarding appropriate crushable or liquid drug formulations that are available whenever modified delivery is recommended. Compensatory Strategies and Precautions to be Taken for Safe Swallow: Sitting Upright (90 deg) Small Bites and Sips Rate of Ingestion Change Supervision While Eating and Drinking for Safe Swallow: None Needed Recommendation for Speech: NA:Typical Evaluation Outpatient Speech Therapy Comment: Swallow deemed to be WFL. Pt may benefit from outpatient speech therapy for oral motor training should right side facial droop persist. Retail General Manager Clinican/Clinical Fellow: No Supervisory Statement: I have reviewed and agree with the student/clinical fellow's documentation: N/A Speech Language Pathologist: Erika Brooks M.A., CCC-STACKER TENDER
--- NOTE | 2023-05-16 11:28 | MHC.CM.PN ---
Addendum entered by Mariah Garcia 05/16/23 15:42: Pt working w/[facility] to correct her health insurance issue. She has an appt on 05/17 at 8:30 and will likely be reauthorized for [employer]. Information relayed to short stay RN Addendum entered by Mariah Garcia 05/16/23 14:58: Call placed to pt to inform her of appointments for IV infusions on 05/17 and 05/18 at 2:30pm in short stay infusion suite. Pt aware and in agreement. Original Note: This CM assisting w/arrangement of outpt IV solu medrol: Pt will need to come to short stay on 05/17 and 05/18 for IV SoluMedrol dosing completion. Short Stay RN coordinating infusion orders w/[facility] neuro who was consulted. Pt will be discharged to home today after 12pm infusion. ED RN updated on plan to include on pt d/c instructions.
--- NOTE | 2023-05-16 12:45 | PM.DS ---
DS: Providers Provider Date of Service: 05/16/23 Date of admission: 05/15/23 20:34 Primary care physician: Unknown Physician Consults: 05/15/23 20:34 Consult to Neurology Routine Consulting Provider: [facility] Reason for consultation: facial droop DS: Diagnosis Discharge Diagnosis (1) Multiple sclerosis: Status: Acute DS: Summary Hospital Course Hospital Course: Date of Service: 05/15/23 Attending physician on admission: Boom Fritz Chief Complaint: Headache x1 week, right-sided facial droop Pt is a 33-year-old female with a PMH significant for?MS, depression, and 2 months who presents to the ED for evaluation of right-sided headache x1 week and right-sided facial numbness since yesterday afternoon. Pt states headache began gradually one week ago and has waxed and waned since inception, though never fully resolved. Describes headache as a kind of ?pressure? on the right side of her head. Pt has previously experienced similar episodes of headaches though not for the past 1+ year, so thought little of it until yesterday when she felt a numbness to the right side of her face. Denies knowing of any facial weakness until examined int he ED. Also reports mild increased blurriness to right eye. Patient denies any drooling, dysarthria, or dysphagia. Denies any difficulty word-finding or moments of confusion. Patient has long history of chronic numbness and tingling and weakness in extremities since being diagnosed with MS. States has had right-sided leg weakness for at least the past 3 months. Denies fever, chills, nausea, vomiting, abdominal pain. No shortness of breath. Patient notes she is overdue by around 1 year for an MRI of her brain. Apparently missed her most recent appointment in early April with Dr. Mona Rosenthal for her MS. In the ED pt was hemodynamically stable with vitals WNL. Labs were grossly unremarkable. No leukocytosis. Stable H&H. No electrolyte abnormalities. Renal function WNL. UA negative for UTI. Tested negative for influenza type a and B, RSV, COVID. Tick panel pending. CT of head found rounded hypodense focus in the region of the right frontoparietal lobe abutting the lateral margin of the centrum semiovale of unclear etiology, may reflect infarction versus vascular malformation versus infectious/inflammatory versus oncologic etiology. EKG demonstrated normal sinus rhythm without evidence of ST elevations or depressions. Pt will be admitted to the hospital under observation for further evaluation of right-sided facial numbness and weakness and abnormal findings on CT of head. Hospital course: 33-year-old female with a PMH significant for?MS, depression, and 2 months who presents to the ED for evaluation of right-sided headache x1 week and right-sided facial numbness since yesterday afternoon. Pt admitted to the hospital for new right-sided facial numbness and weakness and abnormal findings on CT of head, subsequently she underwent MRI study that showed multiple lesions suggestive of demyelinating disease, and couple of small lesions in the left frontal area, patient evaluated by Dr. Montero from Neurology he recommended IV Solu-Medrol 1 g daily for 3 days and strongly recommended patient to restart immunomodulating agent, the to discontinued since patient was and gave 2 months ago, patient has an appointment with her primary neurologist in few weeks, patient received 1 dose of IV Solu-Medrol in the hospital and will receive 2 other dosages as outpatient at short-stay surgery.. MS recommend outpatient follow-up with Neurology Depression Continue sertraline Time Attestation Discharge coordination time: Greater than 30 minutes Quality: Safe Use of Opioids Does Pt have an Active Cancer Diagnosis on the Problem List?: No Quality: Stroke Does the patient have a stroke diagnosis?: No Physical Exam Vital Signs: Vital Signs: Last Vital Signs Temp 98.0 F 05/16/23 05:31 Pulse 75 05/16/23 07:41 Resp 18 05/16/23 07:41 BP 115/87 05/16/23 07:41 Pulse Ox 99 05/16/23 07:41 O2 Del Method Room Air 05/16/23 07:41 BMI result Body Mass Index 27.1 Const: Other: General awake alert x3, resting comfortably in no acute distress. Anicteric sclera Neck supple no JVD. CVS regular rate rhythm, Respiratory lungs clear to auscultation, no respiratory distress, no wheeze, no rhonchi. Gastrointestinal abdomen soft, nontender, bowel sounds audible, no guarding , no rigidity. Extremities no edema. Neuro right sided facial weakness, unable to raise right eyebrow, speech clear, normal strength bilateral upper and lower extremities Skin no rash Psych appropriate affect. DS: Data Data Completed and Pending Labs on day of discharge: Laboratory Results - last 24 hr 05/15/23 05/15/23 05/15/23 17:05 17:20 17:24 WBC 5.8 RBC 4.20 Hgb 12.1 Hct 36.4 L MCV 86.7 MCH 28.8 MCHC 33.2 RDW 13.0 Plt Count 251 MPV 10.7 Immature Gran % (Auto) 0.7 H Neut % (Auto) 61.7 Lymph % (Auto) 24.5 [place] % (Auto) 10.7 Eos % (Auto) 1.7 Baso % (Auto) 0.7 Lymph # (Auto) 1.4 [place] # (Auto) 0.6 Eos # (Auto) 0.1 Baso # (Auto) 0.0 Abs Immat Gran (auto) 0.04 H Absolute Neuts (auto) 3.6 Absolute Nucleated RBC 0.000 Nucleated RBC % (auto) 0.0 PT 10.5 L INR 0.9 Sodium 138 Potassium 4.0 Chloride 105 Carbon Dioxide 25 Anion Gap 12 BUN 16 Creatinine 0.70 Estim Creat Clear Calc 131.8 Estimated GFR > 60 POC Glucose 84 Random Glucose 90 Calcium 9.4 Magnesium 2.1 Total Bilirubin 0.2 AST 24 ALT 46 H Alkaline Phosphatase 71 Total Protein 7.1 Albumin 4.3 Beta HCG, Quant < 2 Urine Color Yellow Urine Appearance Cloudy Urine pH 6.5 Ur Specific [place] 1.025 Urine Protein Negative Urine Glucose (UA) Negative Urine Ketones Negative Urine Blood Negative Urine Nitrite Negative Ur Leukocyte Esterase Trace H Urine RBC 0-2 Urine WBC 0-5 Ur Squamous Epith Cells 11-20 Urine Bacteria 2+ Hyaline Casts 0-2 Influenza Type A (PCR) NEGATIVE Influenza Type B (PCR) NEGATIVE RSV RNA Qual (PCR) NEGATIVE SARS-CoV-2 RNA (RT-PCR) NEGATIVE 05/16/23 05:03 WBC 5.7 RBC 4.42 Hgb 12.7 Hct 39.1 MCV 88.5 MCH 28.7 MCHC 32.5 RDW 13.1 Plt Count 241 MPV 11.4 Immature Gran % (Auto) 0.7 H Neut % (Auto) 65.9 Lymph % (Auto) 22.8 [place] % (Auto) 7.9 Eos % (Auto) 1.8 Baso % (Auto) 0.9 Lymph # (Auto) 1.3 [place] # (Auto) 0.5 Eos # (Auto) 0.1 Baso # (Auto) 0.1 Abs Immat Gran (auto) 0.04 H Absolute Neuts (auto) 3.8 Absolute Nucleated RBC 0.000 Nucleated RBC % (auto) 0.0 PT INR Sodium 141 Potassium 4.3 Chloride 104 Carbon Dioxide 28 Anion Gap 13 BUN 12 Creatinine 0.72 Estim Creat Clear Calc 128.2 Estimated GFR > 60 POC Glucose Random Glucose 82 Calcium 9.7 Magnesium Total Bilirubin AST ALT Alkaline Phosphatase Total Protein Albumin Beta HCG, Quant Urine Color Urine Appearance Urine pH Ur Specific [place] Urine Protein Urine Glucose (UA) Urine Ketones Urine Blood Urine Nitrite Ur Leukocyte Esterase Urine RBC Urine WBC Ur Squamous Epith Cells Urine Bacteria Hyaline Casts Influenza Type A (PCR) Influenza Type B (PCR) RSV RNA Qual (PCR) SARS-CoV-2 RNA (RT-PCR) Discharge Plan Discharge Anticipated Discharge Date/Time: 05/16/23 10:39 Patient Disposition: Home, Self-Care Discharge Diagnosis: MS flare Referrals: Physician,Unknown J [Primary Care Provider] - 1 Week Discharge Medications: Continued sertraline 50 mg tablet 50 mg PO DAILY Discharge Orders: Discharge Order (Routine); Ordered 05/16/23 Ordered By: Gail Collins Diet: Advance to usual diet Activity on Discharge: As tolerated Stand Alone Forms: Patient Portal Discharge page Care Plan Goals: Recommend IV Solu Medrol 1 g daily for 2 more dosages Health Concerns: Multiple sclerosis Take home medications as before Plan of Treatment: Outpatient follow-up with Neurology, call for appointment Assessment: as above Discharge Date/Time: 05/16/23 12:53
[2023-05-17 22:14] LABS: A. Phagocytphilium DNA,RT-PCR NOT DETECTED (NOT DETECTED); Babesia Microti DNA, RT-PCR NOT DETECTED (NOT DETECTED); Borrelia Miyamotoi,DNA RT-PCR NOT DETECTED (NOT DETECTED); E.Chaffeensis DNA RT-PCR NOT DETECTED (NOT DETECTED); Lyme(Borrelia ssp)DNA RT-PCR NOT DETECTED (NOT DETECTED)
== END 2023-05-16 12:53 | disposition home or self-care (01) ==
LOC: HO.ED 21:02 → HO.EDOVER 21:17
PROVIDERS: Registered Nurse Emergency; Admitting Provider Student in an Organized Health Care Education/Training Program; Emergency Provider Student in an Organized Health Care Education/Training Program; Visit Provider Hospitalist
DX: G35 Multiple sclerosis (principal); R29.810 Facial weakness; R51.9 Headache, unspecified; F32.A Depression, unspecified
CPT/HCPCS: 0241U; 36415; 70450; 70551; 80048; 80053; 81001; 82947; 83735; 84702; 85025; 85610; 87468; 87469; 87478; 87484; 87798; 92610; 93005; 96372; 96374; 99222; 99285; J1650; J2930

== ENCOUNTER → 2023-05-15 17:04 | Outpatient (BNV) | payer MEDICAID, SELFPAY | PROVIDERS: Admitting Provider Student in an Organized Health Care Education/Training Program; Emergency Provider Student in an Organized Health Care Education/Training Program; Visit Provider Internal Medicine Cardiovascular Disease | DX: G51.0 Bell's palsy (principal) | CPT/HCPCS: 93010 ==

== ENCOUNTER → 2023-05-15 20:34 | Outpatient (BNV) | payer MEDICAID, SELFPAY | PROVIDERS: Admitting Provider Student in an Organized Health Care Education/Training Program; Emergency Provider Student in an Organized Health Care Education/Training Program; Visit Provider Student in an Organized Health Care Education/Training Program | DX: G35 Multiple sclerosis (principal); G51.0 Bell's palsy | CPT/HCPCS: 99222; 99239 ==

== ENCOUNTER 2023-05-17 15:01 | Outpatient (REF) | payer MEDICAID, SELFPAY | END 2023-05-17 15:02 | disposition home or self-care (01) | LOC: HO.MDS 15:01 | PROVIDERS: Visit Provider Psychiatry & Neurology Neurology | DX: G35 Multiple sclerosis (principal) | CPT/HCPCS: 96365; J2930 ==

== ENCOUNTER 2023-05-18 14:29 | Outpatient (REF) | payer MEDICAID, SELFPAY | END 2023-05-18 14:30 | disposition home or self-care (01) | LOC: HO.MDS 14:29 | PROVIDERS: Visit Provider Psychiatry & Neurology Neurology | DX: G35 Multiple sclerosis (principal) | CPT/HCPCS: 96365; J2930 ==

== ENCOUNTER 2023-12-04 09:07 | Emergency (ER) | payer OTHER, SELFPAY ==
[2023-12-04 09:20] VITALS: BP 129/100; PULSE 94; RESP 20; TEMP 37.2; O2SAT 98; BMI 29.5
[2023-12-04 09:41] LABS: MANUAL DIFF FLAG NO
[2023-12-04 09:42] LABS: Basophils Absolute Auto 0.1 X10*3/uL (0.0-0.2); Basophils Percent Auto 0.9 % (0-2); Eosinophils Absolute Auto 0.2 X10*3/uL (0.0-0.4); Eosinophils Percent Auto 2.8 % (0-4); Hematocrit 39.4 % (37.0-47.0); Hemoglobin 13.6 g/dl (12.0-16.0); Imm Gran Abs Auto 0.04 X10*3/uL (0.00-0.03); Imm Gran Pct Auto 0.7 % (0.0-0.4); Lymphocytes Absolute Auto 0.9 X10*3/uL (1.2-4.9); Lymphocytes Percent Auto 15.2 % (20-40); Mean Corpuscular HGB Conc 34.5 g/dl (31.0-35.0); Mean Corpuscular Hemoglobin 30.6 pg (27.0-33.0); Mean Corpuscular Volume 88.5 fL (80.0-98.0); Mean Platelet Volume 11.2 fL (9.4-12.3); Monocytes Absolute Auto 0.8 X10*3/uL (0.1-1.2); Monocytes Percent Auto 14.7 % (2-11); Neutrophils Absolute Auto 3.8 x10*3/uL (2.0-8.3); Neutrophils Percent Auto 65.7 % (45-73); Platelet Count 227 X10*3/uL (160-400); Red Blood Count 4.45 X10*6/uL (4.20-5.50); Red Cell Distribution Width 12.2 % (11.0-16.0); White Blood Count 5.7 X10*3/uL (4.8-10.8)
[2023-12-04 10:36] LABS: IDNOW Serial# 08D9AD1C; Strep A Nucleic Acid Negative (Negative)
[2023-12-04 10:43] LABS: Influenza A PCR NEGATIVE (Negative); Influenza B PCR NEGATIVE (Negative); Resp Syncy Virus RNA Qual PCR NEGATIVE (Negative); SARS COV2 PCR INHOUSE NEGATIVE (Negative)
--- NOTE | 2023-12-04 11:00 | ED.URI ---
HPI - URI/Sore Throat General Chief Complaint: Upper Respiratory Symptoms Stated Complaint: Sore throat/Eye irritation Time Seen by Provider: 12/04/23 09:29 Source: patient Mode of arrival: ambulatory Limitations: no limitations History of Present Illness ED Provider: Skye Castellano APRN HPI Narrative: 33-year-old female with a history of MS currently receiving infusions (last infusion Tuesday) here with complaints of 5 days of sore throat, bilateral eye itching and drainage, coughing, headache. Patient reports that her children are sick at home with the same symptoms. She did go to [facility] 2 days ago and was tested for strep which was negative. She was told that she had a virus and to continue supportive measures at home as well as olopatadine eye drops. She denies vision changes, chest pain, shortness of breath, neck pain, vomiting, diarrhea, abdominal pain, skin rash. No fevers or chills. Related Data Home Medications ?Medication ?Instructions ?Recorded ?Confirmed sertraline 50 mg tablet 50 mg PO DAILY 05/16/23 05/16/23 Allergies Allergy/AdvReac Type Severity Reaction Status Date / Time Iodinated Contrast Media Allergy Hives Verified 12/04/23 09:23 [Contrast Dye] Review of Systems Review of Systems: Yes all other systems are reviewed and are negative Constitutional: Constitutional: Reports no additional constitutional complaints, Denies body ache(s), Denies chills, Reports fatigue, Denies fever(s), Reports headache(s) and Denies weakness Eyes: Eyes: Reports no additional eye complaints, Denies change in vision, Reports eye discharge and Reports irritation ENT: Reports system reviewed and no additional complaints, except as documented, Denies dizziness, Reports headache(s), Denies nasal congestion, Denies nasal discharge, Denies neck pain and Reports sore throat Cardiovascular: Cardiovascular: Reports no additional cardiovascular complaints, Denies chest pain, Denies leg edema and Denies dyspnea Respiratory: Respiratory: Reports no additional respiratory complaints, Reports cough and Denies dyspnea Gastrointestinal: Gastrointestinal: Reports no additional gastrointestinal complaints, Denies abdominal pain, Denies diarrhea, Denies nausea and Denies vomiting Genitourinary: Genitourinary: Reports no additional female genitourinary complaints and Denies urinary incontinence Musculoskeletal: Musculoskeletal: Reports no additional musculoskeletal complaints, Denies back pain, Denies arthralgias, Denies joint swelling, Denies neck pain, Denies numbness and Denies tingling Integumentary/Breasts: Skin/Breast: Reports system reviewed and no additional complaints, except as docu and Denies rash Neurologic: Reports system reviewed and no additional complaints, except as documented, Denies Abnormal speech present, Denies dizziness, Reports headache(s), Denies numbness, Denies tingling and Denies weakness Endocrine: Endocrine: Reports fatigue PMF Past Medical History Attestation statement: The following information was validated with the patient. Source: old records reviewed and nursing notes reviewed Medical History Multiple sclerosis No known health problems Social History Social History Alcohol intake: current Alcohol intake frequency: a few times a week Patient Tobacco Use Status: Never used Tobacco Advance Directives: No Advance Directives Information Provided: Yes Do you have a plan to hurt others: No Plan service: No Physical Exam Vital Signs: Vital Signs: Last Vital Signs Temp 98.9 F 12/04/23 09:20 Pulse 94 12/04/23 09:20 Resp 20 12/04/23 09:20 BP 129/100 H 12/04/23 09:20 Pulse Ox 98 12/04/23 09:20 O2 Del Method Room Air 12/04/23 09:20 BMI result Body Mass Index 29.5 Const: General: cooperative, healthy appearing, comfortable and no acute distress Orientation/consciousness: patient oriented x3 Limitations: no limitations HEENT: Head: Yes normal to inspection Ears: hearing grossly normal bilaterally and TM's normal bilaterally General nose exam: Normal external nose present Face and sinus: Yes normal facial exam Mouth: Normal oral and palatal mucosa present Throat: Yes posterior oropharynx normal, Yes tonsils normal and Yes uvula midline Eyes: Other: Injection to bilateral conjunctiva General: appearance normal, both eyes and all related structures Visual Alvarado: normal visual alvarado by confrontation Alignment and Position: alignment normal Periorbital: periorbital findings normal Eyelids: Yes eyelids normal Pupils: Equal, round and reactive pupils present EOM: EOMs intact bilaterally Direct Ophthalmoscopy: normal light reflex Neck: Neck: Yes normal visual inspection, Yes full ROM, Yes no lymphadenopathy and Yes no meningeal signs Chest: Chest palpation & inspection: normal inspection of the chest Resp: Effort & Inspection: normal respiratory effort Auscultation: clear to auscultation bilaterally Cardio: Rate: regular rate Rhythm: regular rhythm Peripheral pulses: Peripheral pulses 2+ throughout GI: Inspection: Yes normal to inspection Palpation (GI): Soft to palpation and nontender Auscultation: normal bowel sounds Back/Spine/Pelvis: Thoracic/Lumbar Spine: thoracic and lumbar spine normal to inspection Skin: General skin exam: no rashes or lesions noted Neuro: General: patient oriented x3, no meningeal signs, no focal motor deficits and normal sensation to monofilament Cranial nerves: Yes Equal, round and reactive pupils present Cognition (Neuro): normal cognition Speech: No Abnormal speech present Gait exam (Neuro): Normal gait present Motor exam (neuro): 5/5 motor strength present throughout Extrem: General: Yes normal to inspection Medical Decision Making Medical Decision Making [facility] Narrative: 33-year-old female with a history of MS currently receiving infusions (last infusion Tuesday) here with complaints of 5 days of sore throat, bilateral eye itching and drainage, coughing, headache. Patient reports that her children are sick at home with the same symptoms. She did go to [facility] 2 days ago and was tested for strep which was negative. She was told that she had a virus and to continue supportive measures at home as well as olopatadine eye drops. She denies vision changes, chest pain, shortness of breath, neck pain, vomiting, diarrhea, abdominal pain, skin rash. No fevers or chills. Injection to bilateral conjunctiva. Exam is otherwise normal. Will send testing for strep, COVID/flu/RSV Patient had a CBC ordered from triage which i will review Likely viral syndrome Differential Diagnosis Differential Diagnoses: The differential diagnosis associated with the presentation includes Viral syndrome, influenza Low suspicion for strep pharyngitis, RPA, [employer], bacterial conjunctivitis, meningitis Admission/Observation Consideration of admission/observation: Escalation of care including admission/observation considered Low suspicion for RPA, [employer], meningitis requiring advanced imaging, consultation, admission Lab Data [facility] Lab Attestation statement: I reviewed the patient's lab results. 12/04/23 09:30 Labs: Lab Results 12/04/23 12/04/23 Range/Units 09:30 09:31 WBC 5.7 (4.8-10.8) X10*3/uL RBC 4.45 (4.20-5.50) X10*6/uL Hgb 13.6 (12.0-16.0) g/dl Hct 39.4 (37.0-47.0) % MCV 88.5 (80.0-98.0) fL MCH 30.6 (27.0-33.0) pg MCHC 34.5 (31.0-35.0) g/dl RDW 12.2 (11.0-16.0) % Plt Count 227 (160-400) X10*3/uL MPV 11.2 (9.4-12.3) fL Immature Gran % (Auto) 0.7 H (0.0-0.4) % Neut % (Auto) 65.7 (45-73) % Lymph % (Auto) 15.2 L (20-40) % [place] % (Auto) 14.7 H (2-11) % Eos % (Auto) 2.8 (0-4) % Baso % (Auto) 0.9 (0-2) % Lymph # (Auto) 0.9 L (1.2-4.9) X10*3/uL [place] # (Auto) 0.8 (0.1-1.2) X10*3/uL Eos # (Auto) 0.2 (0.0-0.4) X10*3/uL Baso # (Auto) 0.1 (0.0-0.2) X10*3/uL Abs Immat Gran (auto) 0.04 H (0.00-0.03) X10*3/uL Absolute Neuts (auto) 3.8 (2.0-8.3) x10*3/uL Absolute Nucleated RBC 0.000 (0.0-0.012) X10*3/uL Nucleated RBC % (auto) 0.0 (0.0-0.2) /100WBC Influenza Type A (PCR) NEGATIVE (Negative) Influenza Type B (PCR) NEGATIVE (Negative) RSV RNA Qual (PCR) NEGATIVE (Negative) SARS-CoV-2 RNA (RT-PCR) NEGATIVE (Negative) S. pyogenes GrpA PARTH Negative (Negative) Tests considered The following testing was considered but not selected: low suspicion for RPA, [employer], meningitis requiring advanced imaging Prescription Management I considered prescription management with: Antibiotic Discharge Plan Discharge Clinical Impression: Viral infection Patient Disposition: Home, Self-Care Instructions: Viral Syndrome (ED) Additional Instructions: Your testing for strep, flu, COVID, RSV are negative Take Motrin or Tylenol for any pain or fever Increase fluids, rest Follow-up with primary care doctor for any continued symptoms. Return to the emergency room for any worsening symptoms Prescriptions: No Action sertraline 50 mg tablet 50 mg PO DAILY Referrals: Physician,Unknown J [Primary Care Provider] - 5 days Stand Alone Forms: Work/School Release Print Language: Dominican
[2023-12-04 11:18] VITALS: BP 129/100; PULSE 94; RESP 20; TEMP 37.2; O2SAT 98
== END 2023-12-04 11:19 | disposition home or self-care (01) ==
PROVIDERS: Emergency Provider Emergency Medicine
DX: B34.9 Viral infection, unspecified (principal); J02.9 Acute pharyngitis, unspecified; Z03.818 Encounter for observation for suspected exposure to other biological agents ruled out; Z79.899 Other long term (current) drug therapy
CPT/HCPCS: 0241U; 85025; 87651; 99283

== ENCOUNTER 2024-05-03 16:49 | Emergency (ER) | payer OTHER, SELFPAY ==
--- NOTE | ~2024-05-03 | CT_ITS ---
EXAMINATION: CT ABDOMEN AND PELVIS WITHOUT CONTRAST CLINICAL INFORMATION: Abdominal pain. COMPARISON: None available. TECHNIQUE: Multidetector volumetric imaging was performed from the superior aspect of the liver through the pubic symphysis. Sagittal and coronal reformatted images were obtained on the technologist's workstation. This CT examination was performed using dose optimization techniques as appropriate, variously including the following: *Automated exposure control *Adjustment of mA and/or kV according to patient size (this includes techniques or standardized protocols for targeted exams where dose is matched to indication/reason for exam; i.e. extremities or head) *Use of iterative reconstruction technique DLP: 655 mGy-cm FINDINGS: LUNG BASES: The visualized lung bases are unremarkable. LIVER, GALLBLADDER, AND BILIARY TREE: The liver is normal in size, shape, and attenuation. No focal hepatic lesion or biliary ductal dilatation is present. The gallbladder is unremarkable with no evidence of radiopaque gallstones, gallbladder wall thickening, or obvious pericholecystic inflammatory changes. PANCREAS: Unremarkable. SPLEEN: Unremarkable. ADRENAL GLANDS: Unremarkable. KIDNEYS AND URETERS: The kidneys are normal in size, shape, and attenuation. No hydronephrosis, hydroureter, or calculi seen. No perinephric stranding. BLADDER: Unremarkable. GASTROINTESTINAL TRACT: The small and large bowel are unremarkable. The appendix is unremarkable. ABDOMINAL WALL: No significant hernia is appreciated. LYMPH NODES: Normal. VASCULAR: Unremarkable. PELVIC VISCERA: Unremarkable. OSSEOUS STRUCTURES: Unremarkable. CT/CT abdomen pelvis wo IV con IMPRESSION: No significant abnormality. Fleischner guidelines were followed. Electronically signed by: Ki Reese MD 05/04/2024 01:39 AM EST
[2024-05-03 17:44] VITALS: BP 127/77; PULSE 75; RESP 18; TEMP 36.9; O2SAT 100; BMI 29.4
--- NOTE | 2024-05-03 17:45 | ED.GENADULT ---
HPI - General Adult General Chief complaint: Abdominal Pain Stated complaint: lower abd pain Time Seen by Provider: 05/03/24 23:52 Source: patient Mode of arrival: ambulatory Limitations: no limitations History of Present Illness ED Provider: DR. Olivo HPI narrative: 34-year-old female came in for evaluation of right-sided abdominal pain for the past 2 days described as a constant pain associated with nausea but no vomiting, no fever, no chills patient also feel bloated and distended, last bowel movement was this morning and was normal with no blood, passing flatus, never had intra-abdominal surgery in the past. No dysuria, no frequency urination, no hematuria. Sexually active with 1 person with no risk for STDs. Related Data Home Medications ?Medication ?Instructions ?Recorded ?Confirmed sertraline 50 mg tablet 50 mg PO DAILY 05/16/23 05/16/23 Previous Rx's ?Medication ?Instructions ?Recorded nitrofurantoin 100 mg PO BID #14 caps 05/04/24 monohydrate/macrocrystals 100 mg capsule (Macrobid) Allergies Allergy/AdvReac Type Severity Reaction Status Date / Time Iodinated Contrast Media Allergy Hives Verified 05/03/24 17:46 [Contrast Dye] Review of Systems Review of Systems: All other systems are reviewed and are negative Constitutional: Reports as per HPI and Reports no additional constitutional complaints Eyes: Reports as per HPI and Reports no additional eye complaints Reports system reviewed and no additional complaints, except as documented Cardiovascular: Reports as per HPI and Reports no additional cardiovascular complaints Respiratory: Reports as per HPI and Reports no additional respiratory complaints Gastrointestinal: Reports as per HPI and Reports no additional gastrointestinal complaints Genitourinary: Reports no additional female genitourinary complaints Musculoskeletal: Reports no additional musculoskeletal complaints Skin/Breast: Reports system reviewed and no additional complaints, except as docu Psychiatric: Reports no additional psychiatric complaints Endocrine: Reports no additional endocrine complaints Hematologic/Lymphatic: Reports no additional hematologic/lymphatic complaints Allergic/Immunologic: Reports no additional allergic/immunologic complaints Reports system reviewed and no additional complaints, except as documented and Reports Abnormal speech present [facility] Past Medical History Medical History Multiple sclerosis No known health problems Social History Social History Alcohol intake: current Alcohol intake frequency: holidays/special occasions only Patient Tobacco Use Status: Never used Tobacco Smoked in Last 30 Days: No Use of substances other than those prescribed or required for medical reasons: No Advance Directives: No Advance Directives Information Provided: No Patient : No service: No Physical Exam ED Vital Signs: Vital Signs - 24 hr 05/03/24 17:44 05/03/24 22:23 Temperature 98.4 F 97.5 F Pulse Rate 75 65 Respiratory Rate 18 12 Blood Pressure 127/77 130/81 Pulse Oximetry 100 100 Oxygen Delivery Method Room Air Room Air BMI result Body Mass Index 29.4 Vital signs have been reviewed and appear to be correct. Blood pressure elevated. Heart rate normal. Respiratory rate normal. Temperature normal. Oxygen saturation normal. Appearance: Alert. Oriented X3. No acute distress. Head: Normal external exam. Normocephalic. Atraumatic. No Barber signs noted. No raccoon eyes noted Eyes: PERRLA. EOMI. Conjunctiva and sclera normal. Eyelids normal. ENT: TM's Normal. Pharynx normal. Uvula midline. Moist mucous membranes. No trismus noted. No drooling noted. No muffled voice noted. Neck: Normal inspection. Neck supple. FROM. No adenopathy. Thyroid Normal. No meningeal signs. No neck mass noted. CVS: Normal heart rate and rhythm. Heart sound normal. No murmurs noted. Pulses normal throughout. Respiratory: No respiratory distress. Painless inspiration. Breath sounds normal. No wheezes/rales/rhonchi noted. Chest nontender. No accessory muscle usage noted or decreased air movement noted. Abdomen: Soft, right lower quadrant abdominal tenderness, no rebound tenderness, no guarding Bowel sounds normal in all 4 quadrants. No distention noted. No organomegaly noted. No visible injury noted. Back: No CVA tenderness. Full range of motion noted. Skin: Skin warm and dry. Normal skin color. Normal skin turgor. No rashes/lesions/lacerations noted. Extremities: No lower extremity edema. Extremities exhibit normal range of motion. Extremities nontender. Neuro: Oriented X 3. Cranial nerve exam: II-XII are grossly intact No motor deficit. No sensory deficit. Reflexes normal. Course Course Course Narrative: RME, this is a rapid medical exam performed by Nicho Barkley please refer to primary provider for complete H&P- 34-year-old female presents for evaluation of lower abdominal pain mostly right-sided. Her pain started a couple of days ago. She went to [facility] and had an UTI testing, STD testing and a test that was reportedly all negative. Plan for labs, urinalysis. We will defer imaging to primary er provider at this time Reevaluation(s) Reevaluation #1: Right-sided abdominal pain for 3-4 days, normal WBCs, CT abdomen pelvis shows no acute intra-abdominal pathology. UA reveals UTI will start the patient on Macrobid and encouraged to drink plenty of fluids. Time: 02:53 Medications Administered Discontinued Medications Generic Name Dose Route Start Last Admin Trade Name Freq PRN Reason Stop Dose Admin Nitrofurantoin Macrocrystals 100 mg 05/03/24 23:58 05/04/24 00:09 Nitrofurantoin Monohyd/M-Cryst 100 Mg Capsule PO 05/03/24 23:59 100 mg ONCE ONE Administration Medical Decision Making Differential Diagnosis Differential Diagnoses: The differential diagnosis associated with the presentation includes (Right kidney stone, right pyelonephritis, UTI, , acute appendicitis, acute colitis, acute diverticulitis, electrolyte derangement, severe anemia.) Admission/Observation Consideration of admission/observation: Escalation of care including admission/observation considered Lab Data MDM Lab Attestation statement: I reviewed the patient's lab results. 05/03/24 17:56 05/03/24 17:56 Labs: Lab Results 05/03/24 Range/Units 17:56 WBC 9.5 (4.8-10.8) X10*3/uL RBC 4.30 (4.20-5.50) X10*6/uL Hgb 12.9 (12.0-16.0) g/dl Hct 39.4 (37.0-47.0) % MCV 91.6 (80.0-98.0) fL MCH 30.0 (27.0-33.0) pg MCHC 32.7 (31.0-35.0) g/dl RDW 12.4 (11.0-16.0) % Plt Count 250 (160-400) X10*3/uL MPV 11.2 (9.4-12.3) fL Immature Gran % (Auto) 0.3 (0.0-0.4) % Neut % (Auto) 75.2 H (45-73) % Lymph % (Auto) 14.9 L (20-40) % [place] % (Auto) 7.7 (2-11) % Eos % (Auto) 1.2 (0-4) % Baso % (Auto) 0.7 (0-2) % Lymph # (Auto) 1.4 (1.2-4.9) X10*3/uL [place] # (Auto) 0.7 (0.1-1.2) X10*3/uL Eos # (Auto) 0.1 (0.0-0.4) X10*3/uL Baso # (Auto) 0.1 (0.0-0.2) X10*3/uL Abs Immat Gran (auto) 0.03 (0.00-0.03) X10*3/uL Absolute Neuts (auto) 7.1 (2.0-8.3) x10*3/uL Absolute Nucleated RBC 0.000 (0.0-0.012) X10*3/uL Nucleated RBC % (auto) 0.0 (0.0-0.2) /100WBC Sodium 138 (135-145) mmol/L Potassium 3.8 (3.3-5.1) mmol/L Chloride 105 (96-108) mmol/L Carbon Dioxide 28 (22-29) mmol/L Anion Gap 9 L (12-20) BUN 13 (9-16) mg/dL Creatinine 0.63 (0.5-1.4) mg/dL Estim Creat Clear Calc 150.7 Estimated GFR > 60 Random Glucose 90 (60-115) mg/dL Calcium 9.2 (8.4-10.2) mg/dL Total Bilirubin 0.3 (0.0-1.0) mg/dL AST 19 (5-31) U/L ALT 17 (0-31) U/L Alkaline Phosphatase 74 (39-117) U/L Total Protein 7.2 (6.5-8.0) g/dL Albumin 4.4 (3.5-5.0) g/dL Lipase 15 (8-78) U/L Beta HCG, Quant < 2 mIU/mL Urine Color Yellow Urine Appearance Clear Urine pH 7.0 (5.0-9.0) Ur Specific [place] 1.025 (1.005-1.025) Urine Protein Negative (Neg-Trace) mg/dL Urine Glucose (UA) Negative (Negative) mg/dL Urine Ketones Negative (Negative) mg/dL Urine Blood Negative (Negative) Urine Nitrite Negative (Negative) Ur Leukocyte Esterase Moderate (2+) H (Negative) Urine RBC 0-2 (0-2) /HPF Urine WBC 21-50 H (0-5) /HPF Ur Squamous Epith Cells 6-10 (0-2) /HPF Urine Bacteria 1+ (None Seen) Hyaline Casts 0-2 (0-2) /LPF Independent Interpretation I performed an independent interpretation of an: CT Scan (Abdomen pelvis: No acute intra-abdominal pathology.) Radiology Impression Discussion of test interpretation with radiology: I have reviewed the radiologist's reading. Discharge Plan Discharge Clinical Impression: Abdominal pain, UTI (urinary tract infection) Patient Disposition: Still a Patient Instructions: Urinary Tract Infection in Women (ED) Prescriptions: New nitrofurantoin monohyd/m-cryst [Macrobid] 100 mg capsule 100 mg PO BID Qty: 14 0RF Rx Instructions: must administer with a meal/food No Action sertraline 50 mg tablet 50 mg PO DAILY Print Language: Upper Sorbian
[2024-05-03 18:04] LABS: MANUAL DIFF FLAG NO
[2024-05-03 18:06] LABS: Appearance Urine Clear; Color Urine Yellow; Glucose Urine UA Negative (Negative); Leukocyte Esterase Urine Moderate (2+) (Negative); Nitrite Urine Negative (Negative); Specific Gravity - Urine 1.025 (1.005-1.025); UMIC TRIGGER UACC YES; Urine Blood Negative (Negative); Urine Ketones Negative (Negative); Urine Protein Negative (Neg-Trace)
[2024-05-03 18:08] LABS: Basophils Absolute Auto 0.1 X10*3/uL (0.0-0.2); Basophils Percent Auto 0.7 % (0-2); Eosinophils Absolute Auto 0.1 X10*3/uL (0.0-0.4); Eosinophils Percent Auto 1.2 % (0-4); Hematocrit 39.4 % (37.0-47.0); Hemoglobin 12.9 g/dl (12.0-16.0); Imm Gran Abs Auto 0.03 X10*3/uL (0.00-0.03); Imm Gran Pct Auto 0.3 % (0.0-0.4); Lymphocytes Absolute Auto 1.4 X10*3/uL (1.2-4.9); Lymphocytes Percent Auto 14.9 % (20-40); Mean Corpuscular HGB Conc 32.7 g/dl (31.0-35.0); Mean Corpuscular Volume 91.6 fL (80.0-98.0); Mean Platelet Volume 11.2 fL (9.4-12.3); Monocytes Absolute Auto 0.7 X10*3/uL (0.1-1.2); Monocytes Percent Auto 7.7 % (2-11); Neutrophils Absolute Auto 7.1 x10*3/uL (2.0-8.3); Neutrophils Percent Auto 75.2 % (45-73); Platelet Count 250 X10*3/uL (160-400); Red Cell Distribution Width 12.4 % (11.0-16.0); White Blood Count 9.5 X10*3/uL (4.8-10.8)
[2024-05-03 18:12] LABS: Bacteria Urine 1+ (None Seen); Hyaline Casts Urine 0-2 /LPF (0-2); RBC Urine 0-2 /HPF (0-2); UACC Culture Trigger YES; WBC Urine 21-50 /HPF (0-5)
[2024-05-03 18:27] LABS: Alanine Aminotransferase 17 U/L (0-31); Albumin Level 4.4 g/dL (3.5-5.0); Alkaline Phosphatase 74 U/L (39-117); Anion Gap 9 (12-20); Aspartate Amino Transferase 19 U/L (5-31); Bilirubin Total 0.3 mg/dL (0.0-1.0); Blood Urea Nitrogen 13 mg/dL (9-16); Calcium 9.2 mg/dL (8.4-10.2); Carbon Dioxide 28 mmol/L (22-29); Chloride 105 mmol/L (96-108); Creatinine Clr Calc Pharmacy 150.7; Estimated Glomerular Filt Rate > 60; Glucose Random 90 mg/dL (60-115); HCG Quantitative < 2 mIU/mL; Lipase 15 U/L (8-78); Potassium 3.8 mmol/L (3.3-5.1); Sodium 138 mmol/L (135-145); Total Protein 7.2 g/dL (6.5-8.0)
[2024-05-03 22:23] VITALS: BP 130/81; PULSE 65; RESP 12; TEMP 36.4; O2SAT 100
[2024-05-04] MEDS: Nitrofurantoin Monohyd/M-Cryst 100 MG CAPSULE PO (00:09)
[2024-05-04 02:58] VITALS: BP 118/64; PULSE 71; RESP 16; TEMP 36.7; O2SAT 98
== END 2024-05-04 03:00 | disposition home or self-care (01) ==
PROVIDERS: Physician Assistant; Emergency Provider Emergency Medicine
DX: N39.0 Urinary tract infection, site not specified (principal); R10.31 Right lower quadrant pain; G35 Multiple sclerosis; Z79.899 Other long term (current) drug therapy
CPT/HCPCS: 36415; 74176; 80053; 81001; 83690; 84702; 85025; 87086; 99284

== ENCOUNTER 2024-07-29 11:37 | Emergency (ER) | payer OTHER, SELFPAY ==
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
[2024-07-29 11:42] VITALS: BP 151/74; PULSE 99; RESP 18; TEMP 36.2; O2SAT 100; BMI 28.4
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
[2024-07-29 12:31] LABS: HCG Quantitative < 2 mIU/mL
[2024-07-29 14:17] VITALS: BP 151/74; PULSE 99; RESP 18; TEMP 36.2; O2SAT 100
== END 2024-07-29 14:18 | disposition home or self-care (01) ==
PROVIDERS: Physician Assistant Medical; Emergency Provider Emergency Medicine Emergency Medical Services
DX: S00.83XA Contusion of other part of head, initial encounter (principal); Y04.2XXA Assault by strike against or bumped into by another person, initial encounter; Y93.9 Activity, unspecified; Y92.9 Unspecified place or not applicable; Y99.9 Unspecified external cause status; R51.9 Headache, unspecified; R11.2 Nausea with vomiting, unspecified; G35 Multiple sclerosis
CPT/HCPCS: 36415; 70450; 70486; 84702; 99282; 99284

== ENCOUNTER → 2024-07-29 11:45 | Outpatient (BNV) | payer OTHER, SELFPAY | PROVIDERS: Emergency Provider Emergency Medicine Emergency Medical Services; Visit Provider Radiology Diagnostic Radiology | DX: S05.92XA Unspecified injury of left eye and orbit, initial encounter (principal); R51.9 Headache, unspecified; Y04.8XXA Assault by other bodily force, initial encounter | CPT/HCPCS: 70450; 70486 ==

== ENCOUNTER 2024-08-18 09:33 | Emergency (ER) | payer OTHER, SELFPAY ==
--- NOTE | ~2024-08-18 | CT_ITS ---
CLINICAL HISTORY: lower abd pain, rectal pain CT abdomen and pelvis without contrast Comparison: CT/SR - CT ABDOMEN PELVIS WO IV CON - 05/04/24 00:16 EST Findings: The lung bases are clear. Unremarkable gallbladder and solid organs. No urolithiasis. No bowel obstruction, pneumoperitoneum, or pneumatosis. Pelvic contents unremarkable. Normal appendix. The bones are intact. IMPRESSION: No acute findings. This document has been electronically signed by: Topher Moncada MD on 08/18/2024 11:47:43
[2024-08-18 09:36] VITALS: BP 130/76; PULSE 90; RESP 16; TEMP 36.4; O2SAT 99; BMI 28.1
--- NOTE | 2024-08-18 09:37 | ED_ITS ---
HPI - General Adult General Chief complaint: Abdominal Pain Stated complaint: Abd pain, cramping Time Seen by Provider: 08/18/24 09:52 Source: patient Mode of arrival: ambulatory Limitations: no limitations History of Present Illness ED Provider: NOHELIA GOLDMAN PA-C HPI narrative: 34 year old female with pmhx significant for MS presents to the ED today for evaluation of lower abdominal discomfort x5 months. Reports intermittent sharp pains to her lower abdomen. No radiation however does report intermittent sharp pain to internal rectum . Denies any rectal bleeding, discharge, bloody stools, melena. No hx hemorrhoids. Reports normal BM however did take a laxative yesterday with subsequent loose stools today. Reports presenting to our facility in April for same with unremarkable work up. She is sexually active (both vaginally and rectally) with her one male partner for the last two years. No new partners. Reports increased vaginal discharge. No discoloration to discharge. No foul odor. SHe presented to her OBGYN for evaluation 1 month ago - had pelvic exam at that time with negative STI/ UA testing. Denies fever, chills, N/V. Related Data Home Medications ?Medication ?Instructions ?Recorded ?Confirmed sertraline 50 mg tablet 50 mg PO DAILY 05/16/23 05/16/23 Previous Rx's ?Medication ?Instructions ?Recorded nitrofurantoin 100 mg PO BID #14 caps 05/04/24 monohydrate/macrocrystals 100 mg capsule (Macrobid) metronidazole 500 mg tablet 500 mg PO BID 7 days #14 tabs 08/18/24 nitrofurantoin 100 mg PO BID 7 days #14 caps 08/18/24 monohydrate/macrocrystals 100 mg capsule (Macrobid) Allergies Allergy/AdvReac Type Severity Reaction Status Date / Time Iodinated Contrast Media Allergy Hives Verified 08/18/24 09:38 [Contrast Dye] Review of Systems 2 Review of Systems: Yes all other systems are reviewed and are negative PMFSH Past Medical History Attestation statement: The following information was validated with the patient. Source: old records reviewed and nursing notes reviewed Medical History Multiple sclerosis No known health problems Social History Social History Alcohol intake: current Alcohol intake frequency: holidays/special occasions only Patient Tobacco Use Status: Never used Tobacco service: No Physical Exam ED Vital Signs: Vital Signs - 24 hr 08/18/24 09:36 08/18/24 10:49 08/18/24 12:22 Temperature 97.5 F 98.0 F 98.0 F Pulse Rate 90 97 97 Respiratory Rate 16 16 16 Blood Pressure 130/76 130/81 130/81 Pulse Oximetry 99 100 100 Oxygen Delivery Method Room Air Room Air Room Air BMI result Body Mass Index 28.1 vital signs stable General: Well appearing, in no acute distress. Skin: Warm, dry, intact. No rashes or lesions. Head: Normocephalic, atraumatic. EENT: Hearing is intact b/l. Conjunctiva clear. PERRLA. EOM intact. Moist mucous membranes.? Neck: Supple without LAD Cardiac: Chest wall symmetric. RRR Lungs: Normal respiratory effort without accessory muscle use. CTA bilaterally Abdomen: Soft, non-tender, non-distended. No rebound tenderness or guarding. Positive BS x4. no cvat. Rectal exam performed - patient declined chaparone. Normal rectal sphincter tone. No external masses or lesions. No palpable stool in rectal vault. / pelvic exam: deferred per patient. Back: No midline spinous or paraspinal tenderness. No step off deformity. Ext: Upper and lower extremities atraumatic, without tenderness, deformity, swelling or erythema Neuro: AOx3. Normal speech. Ambulating with steady gait. Course Course Course Narrative: This is a rapid medical exam performed by Miguel A Samuels NP: Additional HPI, ROS, PE not included below will be deferred to primary provider. 08/18/24 09:38 Patient is a 34-year-old female presenting with lower/suprapubic abdominal pain for months. Radiation to rectum, more vaginal discharge than normal. Seen here and PCP for same in April. Reports negative testing for STIs. Took laxative without change. Plan: labs, UA Reevaluation(s) Reevaluation #1: 1153 -- CBC without leukocytosis or left shift. No anemia. H&H stable. Chemistry without acute electrolyte abnormality requiring intervention. No ANDRES. Liver function at baseline. HCG undetectable. urine showing moderate leukocyte esterase, 21-50 wbcs, >20 squamous cells, 4+ urine bacteria. given bladder discomfort , will treat for UTI although I have some suspicion that this may be due to contamination. urine culture pending. swabs for ct/ng/bv/trich pending. CT a/p unremarkable. no evidence of bowel obstruction. no renal stones. normal appendix. no obvious ovarian cysts. > plan to treat for UTI. given ongoing discomfort x5 months, will provide patient with referral to GI specialist for further work up. Patient has remained stable throughout ED visit today. Discussed worrisome signs and symptoms and when to return to the ED. All questions answered at this time. Patient is agreeable with disposition and stable for discharge. STI testing returned positive for bacterial vaginosis. I did call patient to discuss results. Flagyl sent to pharmacy for treatment. All questions answered at this time. Medical Decision Making Medical Decision Making [facility] Narrative: 34 year old female with pmhx significant for MS presents to the ED today for evaluation of lower abdominal discomfort x5 months. Vital signs stable. Afebrile. She is nontoxic appearing in no acute distress. Drinking a coffee. Looks quite comfortable. Abdomen is soft, nondistended, nontender to palpation. There is no rebound tenderness or guarding. Active bowel sounds throughout. No CVAT. I did offer pelvic exam however this was deferred per patient. Choosing to self swab. Differential diagnoses: appendicitis, diverticulitis, diverticulosis, UTI, IUP, constipation, STD Abdominal exam without peritoneal signs. No evidence of acute abdomen at this time. Well appearing. Low suspicion for acute hepatobiliary disease (including acute cholecystitis), acute infectious processes (pneumonia, hepatitis, pyelonephritis, PID, TOA), vascular catastrophe, bowel obstruction or viscus perforation, ovarian cyst/ rupture/ torsion, ectopic. Presentation not consistent with other acute, emergent causes of abdominal pain at this time. Plan: labs, UA, CT AP, pain control, fluids, serial reassessment Differential Diagnosis Differential Diagnoses: The differential diagnosis associated with the presentation includes as above. Admission/Observation not indicated. Lab Data [facility] Lab Attestation statement: I reviewed the patient's lab results. as above. 08/18/24 09:47 08/18/24 09:47 Labs: Lab Results 08/18/24 08/18/24 08/18/24 Range/Units 09:47 10:47 10:48 WBC 5.5 (4.8-10.8) X10*3/uL RBC 4.31 (4.20-5.50) X10*6/uL Hgb 12.8 (12.0-16.0) g/dl Hct 37.7 (37.0-47.0) % MCV 87.5 (80.0-98.0) fL MCH 29.7 (27.0-33.0) pg MCHC 34.0 (31.0-35.0) g/dl RDW 11.7 (11.0-16.0) % Plt Count 254 (160-400) X10*3/uL MPV 11.0 (9.4-12.3) fL Immature Gran % (Auto) 0.4 (0.0-0.4) % Neut % (Auto) 64.8 (45-73) % Lymph % (Auto) 21.3 (20-40) % [place] % (Auto) 10.4 (2-11) % Eos % (Auto) 2.0 (0-4) % Baso % (Auto) 1.1 (0-2) % Lymph # (Auto) 1.2 (1.2-4.9) X10*3/uL [place] # (Auto) 0.6 (0.1-1.2) X10*3/uL Eos # (Auto) 0.1 (0.0-0.4) X10*3/uL Baso # (Auto) 0.1 (0.0-0.2) X10*3/uL Abs Immat Gran (auto) 0.02 (0.00-0.03) X10*3/uL Absolute Neuts (auto) 3.6 (2.0-8.3) x10*3/uL Absolute Nucleated RBC 0.000 (0.0-0.012) X10*3/uL Nucleated RBC % (auto) 0.0 (0.0-0.2) /100WBC Sodium 143 (135-145) mmol/L Potassium 4.3 (3.3-5.1) mmol/L Chloride 111 H (96-108) mmol/L Carbon Dioxide 22 (22-29) mmol/L Anion Gap 14 (12-20) BUN 10 (9-16) mg/dL Creatinine 0.66 (0.5-1.4) mg/dL Estim Creat Clear Calc 140.6 Estimated GFR > 60 Random Glucose 89 (60-115) mg/dL Calcium 8.7 (8.4-10.2) mg/dL Total Bilirubin 0.2 (0.0-1.0) mg/dL AST 17 (5-31) U/L ALT 16 (0-31) U/L Alkaline Phosphatase 64 (39-117) U/L Total Protein 6.9 (6.5-8.0) g/dL Albumin 4.4 (3.5-5.0) g/dL Beta HCG, Quant < 2 mIU/mL Urine Color Yellow Urine Appearance Cloudy Urine pH 7.5 (5.0-9.0) Ur Specific [place] 1.025 (1.005-1.025) Urine Protein Negative (Neg-Trace) mg/dL Urine Glucose (UA) Negative (Negative) mg/dL Urine Ketones Trace (Negative) mg/dL Urine Blood Negative (Negative) Urine Nitrite Negative (Negative) Ur Leukocyte Esterase Moderate (2+) H (Negative) Urine RBC 0-2 (0-2) /HPF Urine WBC 21-50 H (0-5) /HPF Ur Squamous Epith Cells >20 (0-2) /HPF Urine Bacteria 4+ (None Seen) Hyaline Casts 0-2 (0-2) /LPF Chlam trachomat DNA PCR NOT DETECTED (Not Detect.) N.gonorrhoeae DNA (PCR) NOT DETECTED (Not Detect.) T. vaginalis (PCR) NOT DETECTED (Not Detect) Bact vaginosis (PCR) POSITIVE A (Negative) C. krusei/glabrata (PCR) NOT DETECTED (Not Detect) Ping group (PCR) NOT DETECTED (Not Detect) Independent Interpretation I performed an independent interpretation of an: CT Scan Interpretation: ct without obstruction Radiology Impression Discussion of test interpretation with radiology: I have reviewed the radiologist's reading. Radiologist Impression: Procedure(s): CT abdomen pelvis wo IV con Accession Number(s): [id number] cc: Physician,Unknown ; Nohelia Goldman~ Report Number: [id number]: Total DLP = 617.00 mGy-cm CLINICAL HISTORY: lower abd pain, rectal pain CT abdomen and pelvis without contrast Comparison: CT/SR - CT ABDOMEN PELVIS WO IV CON - 05/04/24 00:16 EST Findings: The lung bases are clear. Unremarkable gallbladder and solid organs. No urolithiasis. No bowel obstruction, pneumoperitoneum, or pneumatosis. Pelvic contents unremarkable. Normal appendix. The bones are intact. IMPRESSION: No acute findings. External Record Review External record reviewed: Inpatient record Prescription Management I considered prescription management with: Pain Medication Social Determinants Patient?s care significantly limited by Social Determinants of Health including: Other Social Determinant of Health Critical Care Time Critical Care Time Critical Care Time: No Discharge Plan Discharge Clinical Impression: UTI (urinary tract infection) Patient Disposition: Home, Self-Care Instructions: Urinary Tract Infection in Women (ED) Additional Instructions: Your blood work today is reassuring. Your CT scan is unremarkable. Swabs of gonorrhea, chlamydia, Trichomonas and bacterial vaginosis have been sent to the lab. You will be contacted with any positive results from these tests and will be treated appropriately at that time. As discussed, your urine shows possible infection so we will treat you for this. Macrobid is an antibiotic that has been sent to your pharmacy for treatment. Take this as prescribed. I have provided you with a referral to a GI specialist. Follow up with your PCP. Return to the ED with any new or worsening symptoms. In the case of an emergency call 911. Prescriptions: New nitrofurantoin monohyd/m-cryst [Macrobid] 100 mg capsule 100 mg PO BID 7 Days Qty: 14 0RF Rx Instructions: must administer with a meal/food metronidazole 500 mg tablet 500 mg PO BID 7 Days Qty: 14 0RF No Action sertraline 50 mg tablet 50 mg PO DAILY nitrofurantoin monohyd/m-cryst [Macrobid] 100 mg capsule 100 mg PO BID Qty: 14 0RF Rx Instructions: must administer with a meal/food Referrals: [facility] [Provider Group] Interventions: ED Discharge Assessment Last Done: 08/18/24 12:22 Discharge Date/Time: 08/18/24 12:37 Print Language: Kinyarwanda
[2024-08-18 09:52] LABS: MANUAL DIFF FLAG NO
[2024-08-18 10:01] LABS: Basophils Absolute Auto 0.1 X10*3/uL (0.0-0.2); Basophils Percent Auto 1.1 % (0-2); Eosinophils Absolute Auto 0.1 X10*3/uL (0.0-0.4); Hematocrit 37.7 % (37.0-47.0); Hemoglobin 12.8 g/dl (12.0-16.0); Imm Gran Abs Auto 0.02 X10*3/uL (0.00-0.03); Imm Gran Pct Auto 0.4 % (0.0-0.4); Lymphocytes Absolute Auto 1.2 X10*3/uL (1.2-4.9); Lymphocytes Percent Auto 21.3 % (20-40); Mean Corpuscular Hemoglobin 29.7 pg (27.0-33.0); Mean Corpuscular Volume 87.5 fL (80.0-98.0); Monocytes Absolute Auto 0.6 X10*3/uL (0.1-1.2); Monocytes Percent Auto 10.4 % (2-11); Neutrophils Absolute Auto 3.6 x10*3/uL (2.0-8.3); Neutrophils Percent Auto 64.8 % (45-73); Platelet Count 254 X10*3/uL (160-400); Red Blood Count 4.31 X10*6/uL (4.20-5.50); Red Cell Distribution Width 11.7 % (11.0-16.0); White Blood Count 5.5 X10*3/uL (4.8-10.8)
--- OUTSIDE RECORDS SUMMARY | 2024-08-18 10:01 | XMS_ITS | Encounter Summary ---
Author Organization [facility] Address [address] [place] [address] Care Team Providers Care Route Rider Supervisor Name Role Phone Daisy Torrez MD Primary Care Provider Encounter Details Date Type Department Care Team Description 11/10/2022 Telephone Adult Medicine [facility] [place] [address] [place] [address] Daisy Torrez MD [address] [place] [address] Social History Tobacco Use Types Packs/Day Years Used Date Smoking Tobacco: Former Smokeless Tobacco: Never Comments:occasional tobacco Alcohol Use Standard Drinks/Week Comments Not Currently 0 (1 standard drink = 0.6 oz pure alcohol) 2 times a week 3/ beers quit w/pregngncy Intimate Partner Violence Answer Date R ecorded Within the last year, have y ou been afraid of your partner or ex-partner? No 04/11/2019 Within the last year, have y ou been humiliated or emotionally abused in other ways by your partner or ex-partner? No Within the last year, have y ou been kicked, hit, slapped, or otherwise physically hurt by your partner or ex-partner? No 04/11/2019 Within the last year, have y ou been raped or forced to have any kind of sexual activity by your partner or ex-partner? No 04/11/2019 Sex Assigned at Date Recorded Not on file Job Start Date Occupation Industry Not on file Not on file Not on file COVID-19 Exposure Response Date Recorded In the last 10 days, have jesus u been in contact with someone who was confirmed or suspected to have Coronavirus/COVID-19? No / Unsure 10/27/2022 2:48 PM EDT documented as of this encounter Plan of Treatment Not on file documented as of this encounter Visit Diagnoses Not on filedocumented in this encounter Care Teams Route Rider Supervisor Relationship Specialty Start Date End Date Daisy Torrez MD [address] [place] [id number] PCP - General Internal Medicine 06/01/22 documented as of this encounter
--- OUTSIDE RECORDS SUMMARY | 2024-08-18 10:01 | XMS_ITS | Encounter Summary ---
Author Organization [facility] Address [address] [place] [address] Care Team Providers Care Pastoral Assistant Name Role Phone Thang Carl MD Primary Care Provider Roxy Hubbard MD Primary Care Provider Thang Florentino MD Primary Care Provider Josh Mckinley, Pcp Primary Care Provider Daisy Cheema MD Primary Care Provider [phone] Reason for Visit * Reason Onset Date Comments EKG 03/15/2016 Encounter Details Date Type Department Care Team Description 03/15/2016 Telephone Adult Medicine [address] [address] Thang Carl MD EKG Social History Tobacco Use Types Packs/Day Years Used Date Smoking Tobacco: Never Smokeless Tobacco: Never Alcohol Use Standard Drinks/Week Comments Yes 0 (1 standard drink = 0.6 oz pur e alcohol) occ Intimate Partner Violence Answer Date R ecorded [...] file Not on file Not on file documented as of this encounter Miscellaneous Notes * Telephone Encounter - Enma Aparicio M.A. - 03/24/2016 11:19 AM EST EKG done today and faxed to [facility] faxed to: [phone] * Telephone Encounter - Delfina Nolen - 03/16/2016 10:01 AM EST Patient scheduled with [facility] on 03/24/16 * Telephone Encounter - Thang Carl - 03/15/2016 11:43 AM EST Please schedule office visit either with me or Yamini and will do ekg then * Telephone Encounter - Anahi Back M.A. - 03/15/2016 11:36 AM EST Please advise / patient has not been seen by Dr Carl * Telephone Encounter - Floresita Do - 03/15/2016 10:50 AM EST Patient was seen at [facility]. They sent her a letter and are asking her to get an EKG done. The patient would like a call back to schedule this please. documented in this encounter Plan of Treatment Not on file documented as of this encounter Visit Diagnoses Not on filedocumented in this encounter Care Teams Pastoral Assistant Relationship Specialty Start Date End Date Thang Carl MD PCP - General Internal Medicine 10/12/13 06/24/19 Roxy Cruz MD PCP - General Internal Medicine 06/25/19 01/15/21 Thang Carl MD PCP - General Internal Medicine 01/16/21 04/21/22 [facility], Pcp PCP - General Internal Medicine 04/22/22 05/31/22 Daisy Torrez MD [address] [place] [id number] PCP - General Internal Medicine 06/01/22 documented as of this encounter
--- OUTSIDE RECORDS SUMMARY | 2024-08-18 10:01 | XMS_ITS | Clinical Summary ---
Author Organization [facility] Address [address] [place] [address] Care Team Providers Care Spiritual Care Coordinator Name Role Phone Thang Carl MD Primary Care Provider Allergies Active Allergy Reactions Criticality Noted Date Comments Iodinated Contrast Media Medium 03/02/2016 Other reaction(s): THROAT ITCHY AND HIVES Medications Medication Sig Dispensed Refills Start Date End Date Status ergocalciferol (VITAMIN D2) capsule 02350 units Take 1 capsule (50,000 Units total) by mouth once a week. 4 capsule 12 06/13/2023 Active sertraline (ZOLOFT) 50 MG tablet Take 1 tablet (50 mg total) by mouth daily. 90 tablet 1 11/28/2023 Active Active Problems Problem Noted Date Diagnosed Date Multiple sclerosis 09/06/2022 Family History Medical History Relation Name Comments Multiple sclerosis Mother Diabetes Paternal Aunt Diabetes Paternal Grandfather Diabetes Paternal Grandmother Diabetes Paternal Uncle Relation Name Status Comments Mother Paternal Aunt Paternal Grandfather Paternal Grandmother Paternal Uncle Social History Tobacco Use Types Packs/Day Years Used Date Smoking Tobacco: Former Cigarettes Smokeless Tobacco: Never Tobacco Cessation:Counseling Given: Not Answered Alcohol Use Standard Drinks/Week Comments Never 0 (1 standard drink = 0.6 oz pur e alcohol) Sex and Gender Information Value Date Recorded Sex Assigned at Female 07/10/2020 12:42 PM EST Gender Identity Not on file Sexual Orientation Not on file Job Start Date Occupation Industry Not on file Not on file Not on file Last Filed Vital Signs Vital Sign Reading Time Taken Comments Blood Pressure 144/86 12/22/2023 3:59 PM EDT Pulse 77 12/22/2023 3:59 PM EDT Temperature 36.1 ??C (96.9 ??F) 11/29/2023 9:00 AM ED T Respiratory Rate 18 11/29/2023 11:34 AM EDT Oxygen Saturation 98% 12/22/2023 3:59 PM EDT Inhaled Oxygen Concentration - - Weight 92.5 kg (204 lb) 12/22/2023 3:59 PM EDT Height 175.3 cm (5' 9 ) 12/22/2023 3:59 PM EDT Body Mass Index 30.13 12/22/2023 3:59 PM EDT Plan of Treatment Health Maintenance Due Date Last Done Comments Hepatitis C Screening 1990 Depression Screening 2002 BMI Counseling 2008 Preventative Health Evaluation 2008 Tobacco Cessation Counseling 2008 Cervical Cancer Screening (Pap Smear) 2011 COVID-19 Vaccine ( season) 2024 02/21/2022, 07/04/2021, 01/28/2021, Additional history exists Influenza Vaccine (#1) 2024 02/08/2022, 2020 DTap / Tdap / Td (3 - Td or Tdap) 12/16/2032 12/16/2022, 01/22/2014 Hepatitis B Vaccines Completed 07/18/2018, 01/18/2018, 11/10/2017 Pneumococcal Vaccine Aged Out No long er eligible based on patient's age to complete this topic RSV Ped < 20 months Aged Out No longe r eligible based on patient's age to complete this topic Care Teams Spiritual Care Coordinator Relationship Specialty Start Date End Date Thang Carl MD PCP - General Internal Medicine 12/12/20
--- OUTSIDE RECORDS SUMMARY | 2024-08-18 10:01 | XMS_ITS | Encounter Summary ---
Author Organization [facility] Address [address] [place] [address] Care Team Providers Care Signal And Communications Maintainer Name Role Phone Daisy Torrez MD Primary Care Provider [phone] Encounter Details Date Type Department Care Team Description 08/30/2022 Orders Only Medical Records [address] [place] [address] Abstract, Provider Social History Tobacco Use Types Packs/Day Years [...] Recorded In the last 10 days, have yo u been in contact with someone who was confirmed or suspected to have Coronavirus/COVID-19? No / Unsure 09/02/2022 8:58 AM EDT documented as of this encounter Plan of Treatment Not on file documented as of this encounter Visit Diagnoses Not on filedocumented in this encounter Care Teams Signal And Communications Maintainer Relationship Specialty Start Date End Date Daisy Torrez MD [address] [place] [id number] PCP - General Internal Medicine 06/01/22 documented as of this encounter
--- OUTSIDE RECORDS SUMMARY | 2024-08-18 10:01 | XMS_ITS | Encounter Summary ---
Author Organization [facility] Address [address] [place] [address] Care Team Providers Care Pot Holder Binder Name Role Phone Thang Carl MD Primary Care Provider Roxy Hubbard MD Primary Care Provider Thang Florentino MD Primary Care Provider Josh Mckinley, Pcp Primary Care Provider Daisy Cheema MD Primary Care Provider [phone] Encounter Details Date Type Department Care Team Description 01/26/2016 Digital Controls Technical Officer Report Medical Records [address] [place] [address] Jeronimo Aaron MD Social History Tobacco Use Types Packs/Day Years [...] on file documented as of this encounter Plan of Treatment Not on file documented as of this encounter Visit Diagnoses Not on filedocumented in this encounter Care Teams Pot Holder Binder Relationship Specialty Start Date End Date Thang Carl MD PCP - General Internal Medicine 10/12/13 06/24/19 Roxy Cruz MD PCP - General Internal Medicine 06/25/19 01/15/21 Thang Carl MD PCP - General Internal Medicine 01/16/21 04/21/22 [facility] [place] PCP - General Internal Medicine 04/22/22 05/31/22 Daisy Torrez MD [address] [place] [id number] PCP - General Internal Medicine 06/01/22 documented as of this encounter
--- OUTSIDE RECORDS SUMMARY | 2024-08-18 10:01 | XMS_ITS | Encounter Summary ---
Author Organization [facility] Address [address] [place] [address] Care Team Providers Care Rod Bending Machine Operator Name Role Phone Thang Carl MD Primary Care Provider Roxy Hubbard MD Primary Care Provider Thang Florentino MD Primary Care Provider Josh Mckinley, Pcp Primary Care Provider Daisy Cheema MD Primary Care Provider [phone] Reason for Visit * Reason Onset Date Comments REFERRAL 07/25/2017 Encounter Details Date Type Department Care Team Description 07/25/2017 Telephone Gastroenterology - [address] [address] Jose Juan Escamilla PA-C REFERRAL Social History Tobacco Use Types Packs/Day Years [...] encounter Miscellaneous Notes * Telephone Encounter - Zeeshan Gallo PA-C - 07/25/2017 4:07 PM EDT I have no record of imaging from hospital other than /S which had no acute findings. She should get films to check for back-up of stool and should schedule with GI if still having persistent sxs. Thanks. * Telephone Encounter - Sugar Matthews - 07/25/2017 3:48 PM EDT Patient was referred to gastro for abdominal pain. I noticed you also placed an order For radiologic exam abdomen 2 views. I told patient she needed to schedule this first Before we schedule her with Gastro. She said she didn't need the radiologic exam and that she Had [facility] done [facility]. She said she told you this. So are you cancelling that order? documented in this encounter Plan of Treatment Not on file documented as of this encounter Visit Diagnoses Not on filedocumented in this encounter Care Teams Rod Bending Machine Operator Relationship Specialty Start Date End Date Thang Carl MD PCP - General Internal Medicine 10/12/13 06/24/19 Roxy Cruz MD PCP - General Internal Medicine 06/25/19 01/15/21 Thang Carl MD PCP - General Internal Medicine 01/16/21 04/21/22 [facility] Pcp PCP - General Internal Medicine 04/22/22 05/31/22 Daisy Torrez MD [address] [place] [id number] PCP - General Internal Medicine 06/01/22 documented as of this encounter
--- OUTSIDE RECORDS SUMMARY | 2024-08-18 10:01 | XMS_ITS | Clinical Summary ---
Author Organization [facility] Address [address] [place] [address] Phone Care Team Providers Care Bleach Range Operator Name Role Phone Daisy Torrez MD Primary Care Provider [phone] Allergies Active Allergy Reactions Criticality Noted Date Comments Iodinated Contrast Media Hives,Itching 07/18/19 24 Medications sertraline (ZOLOFT) 50 mg tablet Take 1 tablet (50 mg total) by mouth daily. 4 Active ergocalciferol (VITAMIN D-2) 1,250 mcg (50,000 unit) capsule Take 1 capsule (50,000 Units total) by mouth once a week. 4 Active ublituximab-xi iy (BRIUMVI IV) Infuse into a venous catheter. Active norethindrone (SONIYA,RITCHIE, KD,MICRON OR) 0.35 mg tablet Take 1 tablet (0.35 mg total) by mouth. 4 08/03/19 25 Discontinued Active Problems Problem Noted Date Diagnosed Date Anxiety 12/16/2022 Overview (06/29/2024): 12/16-Taking Zoloft Tinea versicolor 11/10/2017 MS (multiple sclerosis) (CMS/HCC V24, CMS/HCC V2 8) 02/28/2015 Overview (07/18/2023): MRI brain 04/26/2014 from [facility]. Showing stability. Sees Kenya Jamiemarva at [facility]- previously on Gilenya, stopped in Jun 2022 due to planned , exacerbation since then. Symptoms are usually numbness in feet, always fatigued, heavy legs, numbness in right hand. Has not had in some time. Diagnosed about 7 years ago, on meds since then. This was after her last . 02/18/2023 Has follow up with Neurology after delivery and plans to breast feed and hold off on restart meds unless her sx are intolerable. Last Assessment & Plan: I discussed with Sylvia that her disease can improve or worsen in , but particularly at risk of worsening after delivery. I encouraged her to keep her upcoming appt and regular follow up with Neurology throughout her . She will bring records of her visit and last MRI. Scoliosis 03/14/2007 Encounters Date Type Department Care Team Description 08/02/2024 9:00 AM EDT Office Visit Adult Medicine [address] [phone] Sue Branham NP Concussion without loss of consciousness, subsequent encounter (Primary Dx); Menorrhagia with regular cycle; Encounter for examination following treatment at hospital 08/01/2024 Telephone Adult Medicine [address] [phone] Daisy Torrez MD Hospital Follow-up 06/29/2024 10:30 AM EST Office Visit Obstetrics and Gynecology - [address] [phone] Rose Jackson CNM Vaginal discharge (Primary Dx); Venereal disease screening; Urinary frequency from Last 3 Months Immunizations Name Administration Dates Next Due Pfizer (ages 12 & older) Leah COVID-19 02/06 Surgical History Surgery Date Site/Laterality Comments OTHER SURGICAL HISTORY PROCEDURE: DENIES PREVIOUS SURGERY WISDOM TOOTH EXTRACTION 2020 PROCEDURE: HISTORICAL WISDOM TEETH EXTRACTION; COMMENT: all 4 removed Medical History Medical History Date Comments Other and unspecified ovarian cyst 2003 DX:Other and unspecified ovarian cyst Scoliosis DX:Scoliosis Frequent headaches DX:Frequent h eadaches 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) IBS (irritable bowel syndrome) D X:IBS (irritable bowel syndrome); COMMENT: Initially having constipation and now having diarrhea Multiple sclerosis (CMS/HCC V24, CMS/HCC V28) DX:Multiple sclerosis (HCC) Positive GBS test 02/14/2023 DX:Positive GB S test MS (multiple sclerosis) (CMS /HCC V24, CMS/HCC V28) DX:MS (multiple sclerosis) ( [facility]) Family History Medical History Relation Name Comments Diabetes Father's Brother Diabetes Father's Sister Cervical cancer Mother Multiple sclerosis Mother Other: hiatal hernia Mother Other: hypothyroid Mother Other: multiple sclerosis Mother Cervical cancer Other mat aunt Diabetes Paternal Grandfather Diabetes Paternal Grandmother Breast cancer Neg Hx Cancer of Small Bowel Neg Hx Colon cancer Neg Hx Kidney cancer Neg Hx Ovarian cancer Neg Hx Pancreatic cancer Neg Hx Uterine cancer Neg Hx Relation Name Status Comments Brother 1/2 paternal Alive Father not seen in some time Alive 1970 Father's Brother Father's Sister Maternal Grandfather Alive Maternal Grandmother Mother Other mat aunt Paternal Grandfather Paternal Grandmother Social History Tobacco Use Types Packs/Day Years Used Date Smoking Tobacco: Former Smokeless Tobacco: Never Alcohol Use Standard Drinks/Week Comments Never 0 (1 standard drink = 0.6 oz pur e alcohol) Comments No Sex and Gender Information Value Date Recorded Sex Assigned at Not on file Legal Sex Female 4:50 AM EST Gender Identity Not on file Sexual Orientation Not on file Obstetrics History Para Term AB IAB SAB Ectopic Multiple Livin g Live Births 2 1 1 0 0 0 0 0 0 1 1 Date Outcome GA Total Labor Labor/2nd/3rd Weight Sex Type Anes PTL Lynn A1 A5 Name Clin 02/15 Term 39w 0d 3204 g (113 oz) M Vag-S pont Epidura l Livin g Murdock y Last Filed Vital Signs Vital Sign Reading Time Taken Comments Blood Pressure 124/92 08/02/2024 9:07 AM EDT provider will rechk Pulse 85 08/02/2024 9:07 AM EDT Temperature 36.2 ??C (97.2 ??F) 08/02/2024 9 :07 AM EDT Respiratory Rate 16 08/02/2024 9:07 AM EDT Oxygen Saturation 95% 08/02/2024 9:0 7 AM EDT Inhaled Oxygen Concentration - - Weight 87.6 kg (193 lb 3.2 oz) 08/02/2024 9:07 AM EDT Height 175.3 cm (5' 9 ) 08/02/2024 9:07 AM EDT Body Mass Index 28.53 08/02/2024 9:07 AM EDT Plan of Treatment Upcoming Encounters Date Type Department Care Team (Late st Contact Info) Description 09/25/2024 3:30 PM EDT Office Visit Obstetrics and Gynecology - [address] [phone] Radha Quezada, IZABELA [address] [place] [address] 11/05/2024 8:00 AM EDT Appointment [facility] - [address] [place] [phone] Health Maintenance Due Date Last Done Comments Depression Screening 04/11/2022 HIV Screening 04/11/2022 Hepatitis C Screening 04/11/2022 Social Influencers of Health Screening 04/11/2022 COVID-19 Vaccine ( season) 2024 02/21/2022, 07/04/2021, 01/28/2021, Additional history exists Cervical Cancer Screening: Pap Smear 01/17/2024 01/16/2021, 12/23/2017 DTaP,Tdap,and Td Vaccines (3 - Td or Tdap) 12/16/2032 12/16/2022, 01/22/2014 Meningococcal ACWY Vaccine Completed 03/02/2007 HPV Vaccines Completed 11/07/2007, 06/09, 03/02/2007 Hepatitis B Vaccines Completed 07/18/2018, 01/18/2018, 11/10/2017 Influenza Vaccine Completed 03/25/2024, , 04/28/2021 HIB Vaccines Aged Out No longer eligi ble based on patient's age to complete this topic Hepatitis A Vaccines Aged Out No long er eligible based on patient's age to complete this topic IPV Vaccines Aged Out No longer eligi ble based on patient's age to complete this topic MMR Vaccines Aged Out No longer eligi ble based on patient's age to complete this topic Meningococcal B Vaccine Aged Out No l onger eligible based on patient's age to complete this topic Pneumococcal Vaccine: Pediatrics (0 to 5 Years) and At-Risk Patients (6 to 64 Years) Aged Out No longer eligible based on patient's age to complete this topic RSV Immunization Patients Under 20 months Aged Out No longer eligible based on patient's age to complete this topic Varicella Vaccines Aged Out No longer eligible based on patient's age to complete this topic Procedures Procedure Name Priority Date/Time Associated Diagnosis Comments TRICHOMONAS VAGINALIS ANTIGEN Routine 06/29/2024 11:25 AM EST Vaginal discharge CULTURE URINE Routine 06/29/2024 11:25 AM EST Urinary frequency CHLAMYDIA TRACHOMATIS AND NEISSERIA GONORRHOEAE PCR Routine 06/29/2024 11:25 AM EST Venereal disease screening WET PREP, GENITAL Routine 06/29/2024 11: 25 AM EST Vaginal discharge PAP SMEAR Routine 01/16/2021 from Last 3 Months or Most Recently Relevant to Health Maintenance Results * Trichomonas vaginalis antigen (06/29/2024 11:25 AM EST) Trichomonas vaginalis Negative Negative 06/29/2024 2:33 PM EST [facility] Swab Vaginal structure / Unknown Non-blood Collection / Unknown 06/29/2024 11:25 AM EST 06/29/2024 11:25 AM EST Rose Jackson CNM LAB MICROBIOLOGY - GENERAL ORDERABLES Final Result [facility] [address] [place] [address], * Chlamydia trachomatis and Neisseria gonorrhoeae molecular study (06/29/2024 11:25 AM EST) Neisseria gonorrhoeae PCR Negative Negative LAB MOLECULAR DIAGNOSTICS METHOD 06/29/2024 4:07 PM [facility] Chlamydia trachomatis PCR Negative Negative LAB MOLECULAR DIAGNOSTICS METHOD 06/29/2024 4:07 PM [facility] Swab Vaginal structure / Unknown Non-blood Collection / Unknown 06/29/2024 11:25 AM EST 06/29/2024 11:25 AM EST Rose Jackson [facility] MICROBIOLOGY - GENERAL ORDERABLES Final Result Performing Organization Address [facility]/ZIP Co de Phone Number [facility] [address] [place] [address], [place] [phone] * Wet prep, genital (06/29/2024 11:25 AM EST) Clue Cells, Wet Prep Negative Negative 06/29/2024 2:32 PM [facility] Yeast, Wet Prep Negative Negative 06/29/2024 2:32 PM [facility] Trichomonas, Wet Prep Indeterminate Negative 06/29/2024 2:32 PM [facility] Comment:Refer to Trichomonas antigen. Swab Vaginal structure / Unknown Non-blood Collection / Unknown 06/29/2024 11:25 AM EST 06/29/2024 11:25 AM EST Rose Cochran [facility] LAB MICROBIOLOGY - GENERAL ORDERABLES Final Result [facility] [address] [place] [address], [place] [phone] * Culture urine (06/29/2024 11:25 AM EST) Culture, Urine No growth 06/30/2024 8:53 AM EST [facility] Urine Urine specimen obtained by clean catch procedure / Unknown Non-blood Collection / Unknown 06/29/2024 11:25 AM EST 06/29/2024 11:25 AM EST Rose BARBER LAB MICROBIOLOGY - GENERAL ORDERABLES Final Result [facility] [address] [place] [address], * Pap smear (01/16/2021) 01/16/2021 Narrative HISTORICAL TESTING LAB RESULTING AGENCY - 01/30/2021 7:55 AM EDT [id number] THINPREP PAP, IMAGED: NEGATIVE FOR SQUAMOUS INTRAEPITHELIAL LESION AND MALIGNANCY . ZOHAIB VGEA(ASCP) (CASE ELECTRONICALLY SIGNED 01 29 2021) RESULT OF APTIMA HIGH RISK HPV ASSAY: HIGH RISK HPV: ??NEGATIVE (SEROTYPES 16,18,31,33,35,39,45,51,52,56,58,59,66,68) COMPLETED ON 2021-01-21 ADEQUACY: SATISFACTORY ENDOCERVICAL/TRANSFORMATION ZONE COMPONENT PRESENT. SOURCE: THINPREP PAP HPV ANY DX: ??REFLEX 16 AND 18, CERVICAL, IMAGED CLINICAL INFORMATION: HPV ANY DIAGNOSIS. Z12.4, PAP HX NEG. Rose BARBER LAB CYTOLOGY ORDERABLES Fin al Result HISTORICAL TESTING LAB RESULTING AGENCY from Last 3 Months or Most Recently Relevant to Health Maintenance Insurance [facility] Care Teams Bleach Range Operator Relationship Specialty Start Date End Date Daisy Torrez MD [address] [place] [id number] PCP - General Internal Medicine 06/29/24
--- OUTSIDE RECORDS SUMMARY | 2024-08-18 10:01 | XMS_ITS | Encounter Summary ---
Author Organization [facility] Address [address] [place] [address] Care Team Providers Care Hedis Specialist Name Role Phone Thang Carl MD Primary Care Provider Roxy Hubbard MD Primary Care Provider Thang Florentino MD Primary Care Provider Josh Mckinley, Pcp Primary Care Provider Daisy Cheema MD Primary Care Provider [phone] Encounter Details Date Type Department Care Team Description 03/14/2015 Transfer Records Medical Records [address] [place] [address] Abstract, Provider Social History Tobacco Use Types Packs/Day Years Used Date Smoking Tobacco: Never Smokeless Tobacco: Never Alcohol Use Standard Drinks/Week Comments No 0 (1 standard drink = 0.6 oz pur e alcohol) Intimate Partner Violence Answer Date R ecorded [...] on filedocumented in this encounter Care Teams Hedis Specialist Relationship Specialty Start Date End Date Thang Carl MD PCP - General Internal Medicine 10/12/13 06/24/19 Roxy Cruz MD PCP - General Internal Medicine 06/25/19 01/15/21 Thang Carl MD PCP - General Internal Medicine 01/16/21 04/21/22 [facility], Pcp PCP - General Internal Medicine 04/22/22 05/31/22 Daisy Torrez MD [address] [place] [id number] PCP - General Internal Medicine 06/01/22 documented as of this encounter
--- OUTSIDE RECORDS SUMMARY | 2024-08-18 10:01 | XMS_ITS | Encounter Summary ---
Author Organization [facility] Address [address] [place] [address] Care Team Providers Care Senior Portfolio Manager Name Role Phone Thang Carl MD Primary Care Provider Josh Mckinley, Pcp Primary Care Provider Daisy Cheema MD Primary Care Provider [phone] Encounter Details Date Type Department Care Team Description 12/10/2021 Pt. Non Urgent Medical Question Adult Medicine [address] [address] Poppy Daniels [place] [address] [place] [id number] Social History Tobacco Use Types Packs/Day Years Used Date Smoking Tobacco: Former Smokeless Tobacco: Never Comments:occasional tobacco Alcohol Use Standard Drinks/Week Comments Yes 0 (1 standard drink = 0.6 oz pur e alcohol) 2 times a week 3 beers Intimate Partner Violence Answer Date R ecorded [...] on filedocumented in this encounter Care Teams Senior Portfolio Manager Relationship Specialty Start Date End Date Thang Carl MD PCP - General Internal Medicine 01/16/21 04/21/22 [facility], Pcp PCP - General Internal Medicine 04/22/22 05/31/22 Daisy Torrez MD [address] [place] [address] PCP - General Internal Medicine 06/01/22 documented as of this encounter
--- OUTSIDE RECORDS SUMMARY | 2024-08-18 10:01 | XMS_ITS ---
Author Name [facility] Organization Unknown History of Medication Use Medication Directions Dispensed Refills Start Date End Date Status diphenhydrAMINE (BENADRYL) capsule 50 mg 50 mg, Oral, Once, On Tue11/29/23 at 1045, For 1 doseGive 30 minutes prior to ublituximab.??See IV diphenhydramine order. Please give PO or IV.??Common Side Effects: Drowsiness, stomach upset, confusion, dry mouth. 4 11/29/19 completed sertraline (ZOLOFT) 50 MG tablet TAKE 1 TABLET BY MOUTH EVERY DAY 4 active Ublituximab-xiiy (BRIUMVI) 450 mg in sodium chloride (NS) 0.9 % 250 mL IVPB 450 mg, Intravenous, Once, On Tue11/29/23 at 1115, For 1 doseStart at 100mL/hr for the first 30 minutes, increase to 400mL/hr for the remaining 30 minutes. Total duration = 1 hour (or longer). 4 11/29/19 completed acetaminophen (TYLENOL) tablet 975 mg 975 mg, Oral, Once, On Tue11/29/23 at 1045, For 1 doseAdminister 30 minutes prior to ublituximab. 4 11/29/19 24 completed Problems Problem Status Onset Date Problem Type Date of Resoluti on Source Multiple sclerosis active 2022-09-06 ProblemAct [id number]
--- OUTSIDE RECORDS SUMMARY | 2024-08-18 10:01 | XMS_ITS | Encounter Summary ---
Author Organization [facility] Address [address] [place] [address] Care Team Providers Care Telesales Professional Name Role Phone Daisy Torrez MD Primary Care Provider [phone] Encounter Details Date Type Department Care Team Description 09/22/2022 SCAN Medical Records [address] [place] [address] Abstract, Provider Social History Tobacco Use Types [...] on filedocumented in this encounter Care Teams Telesales Professional Relationship Specialty Start Date End Date Daisy Torrez MD [address] [place] [address] PCP - General Internal Medicine 06/01/22 documented as of this encounter
--- OUTSIDE RECORDS SUMMARY | 2024-08-18 10:02 | XMS_ITS | Encounter Summary ---
Author Organization [facility] Address [address] [place] [address] Care Team Providers Care Foam Cutting Supervisor Name Role Phone Thang Carl MD Primary Care Provider Roxy Hubbard MD Primary Care Provider Thang Florentino MD Primary Care Provider Josh Mckinley, Pcp Primary Care Provider Daisy Cheema MD Primary Care Provider Encounter Details Date Type Department Care Team Description 11/27/2013 Rougher Operator Report Medical Records [address] [place] [address] Ponce Winston MD Social History Tobacco Use Types Packs/Day Years Used Date Smoking Tobacco: Never Alcohol Use Standard Drinks/Week Comments [...] on filedocumented in this encounter Care Teams Foam Cutting Supervisor Relationship Specialty Start Date End Date Thang Carl MD PCP - General Internal Medicine 10/12/13 06/24/19 Roxy Cruz MD PCP - General Internal Medicine 06/25/19 01/15/21 Thang Carl MD PCP - General Internal Medicine 01/16/21 04/21/22 [facility] PCP - General Internal Medicine 04/22/22 05/31/22 Daisy Torrez MD [address] [place] [id number] PCP - General Internal Medicine 06/01/22 documented as of this encounter
--- OUTSIDE RECORDS SUMMARY | 2024-08-18 10:02 | XMS_ITS | Clinical Summary ---
Author Organization [facility] Address [address] [place] [address] Care Team Providers Care General Manager Food Name Role Phone Daisy Torrez MD Primary Care Provider [phone] Allergies Active Allergy Reactions Severity Noted Date Comments Iv Contrast Dye Rash/Dermatitis 05/18/2023 Medications Medication Sig Dispensed Refills Start Date End Date Status SERTRALINE HCL OR Take by mouth. 0 Act akash Vit-Fe Fumarate-FA ( Plus) 27-1 MG TabIndications:Prenat al care, subsequent in second trimester Take 1 Tablet by mouth daily. 30 Tablet 11 11/02/2022 Active Rho D Immune Globulin (HyperRHO S/D) 1500 units Solution Prefilled SyringeIndications:Rh negative state in antepartum period Inject 1,500 Units into the muscle Once. 1 Each 0 12/17/2022 Active ferrous gluconate (FERGON) 324 (38 Fe) MG tablet Take 1 Tablet by mouth every other day. 15 Tablet 4 12/21/2022 Active norethindrone (Ana) 0.35 MG tablet Take 1 Tablet by mouth daily for 360 days. 84 Tablet 1 05/18/2023 Active Active Problems Problem Noted Date Anxiety 12/16/2022 Overview: 12/16-Taking Zoloft Burning pelvic pain 08/13/2021 Last Assessment & Plan: I explained it could be MSK. I recommended stretching and heat. No evidence of electronics worker or urinary infection. She was encouraged to return or see her PCP if not improved in the next couple weeks or if she develops fevers, chills, N/V. Tinea versicolor 11/10/2017 MS (multiple sclerosis) 02/28/2015 Overview: MRI brain 04/26/2014 from [facility] Showing stability. Sees Kenya Gu at [facility]- previously on Gilenya, stopped in Jun 2022 [...] her visit and last MRI. Scoliosis 03/14/2007 Abdominal pain, epigastric 03/02/2007 IBS (irritable bowel syndrome) Overview: Initially having constipation and now having diarrhea Resolved Problems Problem Noted Date Resolved Date Positive GBS test 02/14/2023 05/18/2023 Overview: Treat in labor Anemia in 12/21/2022 05/18/2023 Overview: Iron QOD 12/29 Taking Fe as rx'd 02/18- 11.1 abnormal 1 hr, normal 3 hr 12/21/202205/18 Overview: 3hr GTT ordered - WNL Generalized anxiety disorder 09/02/2022 Last Assessment & Plan: Continue oral Zoloft. She will let us know if she feels she needs therapy support. Marijuana use during 08/30/2022 0 05/18/2023 Overview: Positive 08/19 screen 12/16- Pos MJ 12/29/22 Pt reports she is abstaining 02/18- Negative utox Last Assessment & Plan: Discussed risks associated with marijuana use in are based on limited studies and include risk of decreased IQ, cognitive delay, and attention deficit. I also explained that use is not recommended while breast feeding due to substantial amount passed through breast milk with minimal known about mcc affects. We will perform random UDS to ensure amount is decreasing to demonstrate lack of ongoing use. She understood. Insufficient care 08/19/202205/18 Overview: 1. [facility] site: [address] 2. Delivery site: [facility] 3. Mobile Mommas: 4. Dating criteria: LMP only 5. Blood type: O- 6. Genetic screening: Date: Result: 6. GBS: Date: 7. FOB name: Yuan 8. Plans A. Epidural or other pain management - B. Labor support identified - C. Tdap - Date: 12/16, Flu - Date: Declines 02/25/2023 D. Breast or Bottle feed: breast E. Baby's name - F. Circumcision - 9. Hospital Course: Nausea and vomiting in 08/19/2022 09/02/2022 Rh negative state in antepartum period 05/18/2023 Overview: Rhogam given 12/17/2022 Last Assessment & Plan: Rhogam at 28 weeks. Vulvar irritation 08/13/2021 09/02/2022 Last Assessment & Plan: Likely contact irritation from recent pad use. I encouraged coconut oil and comfort skin care measures. Abnormal uterine bleeding 10/18/20182022 Last Assessment & Plan: Counseled pt that her abnormal bleeding may be related to terminal system operator POP use. Not . Will observe and if continues to be a problem, will come back in. Supervision of normal first 07/06/2013 03/06/2015 Overview: SAUMYA 02/21/14 based on LMP, c/w first trimester U/S 1. [facility] site: [place] 2. Delivery site: [facility] 3. Blood type: O neg, Ab neg. Rhogam given 12/11/13 4. Genetic screening: CF neg 5. GBS: GBS neg 6. FOB name: Harsh 7. Plans A. Epidural or other pain management - Open to see how labor progresses B. Labor support identified - Harsh & sharad (mother) C. tDap - 01/22/2014 D. Breast or Bottle feed - Breast E. Baby's name - Berry F. Circumcision - Unsure Multiple sclerosis 09/02/2022 Immunizations Name Administration Dates Next Due COVID-19 (Pfizer) Pt Reported 07/04/2021, 021,01/07/2021 HPV (Gardasil) 11/07/2007,06/26/2007,03/02/2007 Hepatitis B > 19yrs 07/18/2018,01/18/2018,2017 Meningococcal (Menactra) 03/02/2007 Tdap 12/16/2022,01/22/2014 Family History Medical History Relation Name Comments Cervical Cancer Mother hiatal hernia Mother hypothyroid Mother multiple sclerosis Mother Cervical Cancer Other mat aunt Diabetes Paternal Grandfather Diabetes Paternal Grandmother CA Breast Negative Hx CA Colon Negative Hx CA Ovarian Negative Hx Cancer of Small Bowel Negative Hx Cancer of the Pancreas Negative Hx Cancer of the Renal Cell Negative Hx Uterine Cancer Negative Hx Relation Name Status Comments Brother 1/2 paternal Alive Father not seen in some time Alive 1970 Maternal Grandfather Alive Maternal Grandmother Mother Alive 08/22/1968 Other mat aunt Paternal Grandfather Alive Paternal Grandmother Alive Social History Tobacco Use Types Packs/Day Years Used Date Smoking Tobacco: Former Smokeless Tobacco: Never Tobacco Cessation:Counseling Given: Not Answered Comments:occasional tobacco Alcohol Use Standard Drinks/Week Comments [...] Sign Reading Time Taken Comments Blood Pressure 122/80 05/18/2023 11:41 AM EST Pulse 94 05/18/2023 11:41 AM EST Temperature 36.6 ??C (97.8 ??F) 12/03/2022 4:18 PM ED T Respiratory Rate 16 03/08/2023 10:29 AM EDT Oxygen Saturation 98% 06/02/2022 3:37 PM EST Inhaled Oxygen Concentration - - Weight 86.6 kg (191 lb) 05/18/2023 11:41 AM EST Height 175.3 cm (5' 9 ) 03/08/2023 10:29 AM EDT Body Mass Index 28.21 03/08/2023 10:29 AM EDT Plan of Treatment Health Maintenance Due Date Last Done Comments BASELINE HEALTH EXAM 18-39 05/17/202305/17, 11/10/2017, 12/25/2013 CHOLESTEROL SCREENING 05/17/2023 05/17/2018 Covid-19 Vaccine (4 - 2023-2 4 season) 2024 07/04/2021, 01/28/2021, 01/07/2021 CERVICAL CANCER SCREENING 01/17/20242020, 12/23/2017, 08/29/2014, Additional history exists BMI CHECK/ADVISE 05/09/2024 05/18/2023, , 09/25/2019, Additional history exists DEPRESSION SCREENING/FOLLOWUP 05/09/2024 06/29/2019 SOCIAL NEEDS SCREENING 05/09/2024 INFLUENZA (Season Ended) 2025 02/08/2022 DTAP/TDAP/TD (3 - Td or Tdap) 12/16/2032 12/16/2022, 01/22/2014 PNEUMOCOCCAL VACCINE FOR HIG H RISK PATIENTS (#1) 2055 Care Teams General Manager Food Relationship Specialty Start Date End Date Daisy Torrez MD [address] [place] [id number] PCP - General Internal Medicine 06/01/22
--- OUTSIDE RECORDS SUMMARY | 2024-08-18 10:02 | XMS_ITS | Encounter Summary ---
Author Organization [facility] Address [address] [place] [address] Care Team Providers Care Damaged Freight Inspector Name Role Phone Thang Carl MD Primary Care Provider Roxy Hubbard MD Primary Care Provider Thang Florentino MD Primary Care Provider Josh Mckinley, Pcp Primary Care Provider Daisy Cheema MD Primary Care Provider [phone] Encounter Details Date Type Department Care Team Description 01/08/2014 Release of Information Medical Records [address] [place] [address] Abstract, Provider Social History Tobacco Use Types [...] on filedocumented in this encounter Care Teams Damaged Freight Inspector Relationship Specialty Start Date End Date Thang Carl MD PCP - General Internal Medicine 10/12/13 06/24/19 Roxy Cruz MD PCP - General Internal Medicine 06/25/19 01/15/21 Thang Carl MD PCP - General Internal Medicine 01/16/21 04/21/22 [facility], Pcp PCP - General Internal Medicine 04/22/22 05/31/22 Daisy Torrez MD [address] [place] [address] PCP - General Internal Medicine 06/01/22 documented as of this encounter
--- OUTSIDE RECORDS SUMMARY | 2024-08-18 10:02 | XMS_ITS | Data Portability ---
Author Organization [facility] Juarez [facility], [address] Address [address] [place] [address] Care Team Providers Care Direct Mail Clerk Name Role Phone [facility] Family Medicine Assessment No assessment recorded. Plan of Treatment Reminders Order Date Submit Date Provider Last Modified By Organization Details Last Modified Time Details Appointments None recorded. Lab rapid strep group A, throat 2022 023 [email or web address] [facility], [address] [place] [address], [place], [address], 16:36:42 streptococc us group A, culture, throat 2022 023 EBRO [facility], [address] [place] [address], [place], [address], 10:06:25 Referral None recorded. Procedures None recorded. Surgeries None recorded. Imaging None recorded. Medication Orders None recorded. Patient TargetsNo targets recorded. Patient Instructions Encounter Date Encounter Id Patient Instructions Last Modified By Organization Details Last Modified Time 11/12/2022 [id number] sore throat: car e instructions [email or web address] Not available 11/12/2022 16:36:40 Based on your Presentation, Exam, and Lab Testing you are being diagnosed with Pharyngitis. Your Rapid Strep Test was Negative. Most likely your sore throat is being caused by a virus, post nasal drip, or silent acid reflux. I am going to send a Throat Culture to the lab for you to make sure you don't have a different form of strep in your throat. This will take about 72 hours for that result to return. We will contact you if it positive - if for some reason you don't get a copy of your results or hear from us - please contact our office. The following are my other recommendations to help with symptoms and is important for this diagnosis: 1. Do not share any food or drinks - strep is passed through direct saliva exchange (NOT IN THE AIR) 2. Take Ibuprofen or Tylenol if you do not have any allergies to these medications. If you take a blood thinner you should not take NSAIDS like Ibuprofen. These medication will help with the inflammation in your respiratory tract which should help the cough. (I would alternate between Tylenol 650 mg and your Ibuprofen 600 mg every 4 hours) 3. Do not take any Cold Medications that have a Decongestant in it - this will dry out your throat and make the sore throat worse. 4. Drinking Hot Tea with honey can help coat and soothe your throat. 5. You would be considered contagious for the next 24-48 hours, or until fever resolves. I would be seen again if you develop any of the following symptoms. 1. Fever > 101.0 2. Stiff neck - where you can't turn your neck 3. Trouble swallowing your saliva - drooling 4. Swelling of a lymph node in your throat that is painful to touch 5. Difficulty breathing 6. Severe Headache Thank you for using [facility] today, please feel free to contact our office if you have any questions or concerns. [email or web address] Not available 11/12/2022 16:20:01 Reason for Referral None Reported. Results Created Date Observation Date Name Description Value Unit Range Abnormal Flag Note LastModifiedBy Organization Detail LastModifiedTime 11/13/19 23 11/15/2022 BETA STREP GP A CULTU RE beta strep gp A culture NEGATI VE Refer ence Range : Negat akash Not Available [facility] ([facility]) [address] [facility], [place], [address], 11/15/2022 10:06:25 11/13/19 23 11/12/2022 rapid strep group A, throa t Unknown Analyte Normal = Negati ve Not Available [address], [place], [address], 11/12/2022 16:15:14 11/13/19 23 11/12/2022 rapid strep group A, throa t Unknown Analyte negati ve Not Available [address] [place] [address], [place], [address], 11/12/2022 16:15:14 Result Notes None recorded. Problems Name Problem SNOMED Code Status Onset Date Resolution Date Notes Provider Name and Address Organization Details Recorded Time Multiple sclerosis [id number] Active 023 Portia shane [place] - [facility] 3 16:13:13 Problem Notes None recorded. Medical Equipment None Reported. Allergies No known drug allergies Medications Name Sig Start Date Stop Date Status Note LastModified by Organization Details LastModified Time sertraline active Not Available Not Av ailable Not Available active Not Available Not Avai lable Not Available Vitals Date Recorded Body height Body mass index (BMI) Body weight Pain severity - 0-10 verbal numeric rating [Score] - Reported Respiratory rate Oxygen saturation Oxygen saturation in Arterial blood by Pulse oximetry Heart rate Body temperature Systolic blood pressure Diastolic blood pressure Provider Name and Address Organization Details Last Updated DateTime 3 175.26 cm 28.6 kg/m2 94534.9 2 g 0 18 /min 97 % 97 % 85 /min 98.2 [degF] 104 mm[Hg] 68 mm[Hg] Portia HOLLAND - [facility] 3 16:14:50 Social History Question Answer Notes LastModified by Organizat ion Details LastModified Time Tobacco Smoking Status Never Smoker AMALIA Patricio [facility] 11/12/2022 16:13:20 What Is Your Level Of Alcohol Consumption? None Information not available 11/12/2022 Have You Had Direct Contact, Or Contact During Intimacy, With Monkeypox Rash, Scabs, Or Body Fluids From A Person With Monkeypox? No Information not available 11/12/2022 Do You Use Any Illicit Or Recreational Drugs? No Information not available 11/12/2022 Have You Recently Traveled Abroad? No Information not available 11/12/2022 Do You Or Have You Ever Used Any Other Forms Of Tobacco Or Nicotine? No Information not available 11/12/2022 Sex: Unknown Functional Status None recorded. Mental Status None recorded. Family History Relationship Description Onset Age of this Age Resolved Age Notes LastModified by Organization Details LastModified Time Father No current problems or disability Not available 11/12 16:13:14 Mother No current problems or disability Not available 11/12 16:13:14 Medical History No medical history recorded. Gynecological HistoryNo gynecological history recorded. Obstetrics History GPAL:G 0 P 0 0 0 0 Immunizations Vaccine Type Date Status Note Provider Nam e and Address Organization Details Recorded Time Influenza, MDCK, quadrivalent, PF 2 completed Portia Jerri null, PA - [facility] 11/12/2022 16:12:51 COVID-19, mRNA, LNP-S, PF, 30 mcg/0.3 mL dose 1 completed Portia Jerri null, PA - [facility] 11/12/2022 16:12:51 COVID-19, mRNA, LNP-S, PF, 30 mcg/0.3 mL dose 1 completed Portia Jerri null, PA - [facility] 11/12/2022 16:12:51 COVID-19, mRNA, LNP-S, PF, 30 mcg/0.3 mL dose, dell-sucrose 2 completed Portia Jerri null, PA - [facility] 11/12/2022 16:12:51 COVID-19, mRNA, LNP-S, bivalent, PF, 30 mcg/0.3 mL dose 2 completed Portia Jerri null, PA - [facility] 11/12/2022 16:12:51 Tdap 4 completed Portia [place] null, PA - [facility] 11/12/2022 16:12:51 HPV, quadrivalent 8 completed Portia [place] null, PA - [facility] 11/12/2022 16:12:51 HPV, quadrivalent 8 completed Portia [place] null, PA - [facility] 11/12/2022 16:12:51 HPV, quadrivalent 7 completed Portia [place] null, PA - [facility] 11/12/2022 16:12:51 Hep B, adult 9 completed Portia Jerri null, PA - [facility] 11/12/2022 16:12:51 Hep B, adult 8 completed Portia [place] null, PA - [facility] 11/12/2022 16:12:51 Hep B, adult 8 completed Portia Jerri null, PA - [facility] 11/12/2022 16:12:51 meningococcal MCV4P 7 completed Portia Jerri null, PA - [facility] 11/12/2022 16:12:51 Influenza, split virus, quadrivalent, PF 1 completed Portia [place] null, PA - [facility] 11/12/2022 16:12:51 Past Encounters Encounter ID Performer Location Encounter Start Date Encounter Closed Date Diagnosis/Indication Diagnosis SNOMED-CT Code Diagnosis ICD10 Code Diagnosis Note [id number] [address] [place] [address] 06/12/2019 16:15:48 06/12/2019 18:47:48 [id number] [address] [place] [address] 01/21/2021 09:31:21 01/21/2021 11:49:25 [id number] [facility] [address] [place] [address] 04/19/2020 16:18:42 04/19/2020 19:21:27 [id number] [address] [place] [address] 05/13/2021 12:47:20 05/13/2021 15:05:[id number] [address] [address] 03/03/2019 16:37:15 03/03/2019 16:53:56 [id number] [address] [place] [address] 01/14/2021 13:53:15 01/14/2021 15:01:55 [id number] [address] [place] [address] 12/27/2020 17:51:06 12/27/2020 19:34:23 [id number] [address] [place] [address] 01/24/2021 16:01:58 01/24/2021 16:06:34 [id number] [address] [place] [address] 03/27/2019 15:36:08 03/27/2019 16:32:47 [id number] [address] [address] 02/28/2019 11:42:37 02/28/2019 12:44:01 [id number] [address] [place] [address] 06/06/2020 12:06:43 06/06/2020 14:41:44 [id number] [address] [place] [address] 11/14/2019 18:24:29 11/14/2019 20:07:53 [id number] AMALIA MARTINEZ [address] [place] [address] 11/12/2022 14:11:10 11/12/2022 16:40:11 Acute pharyngitis 764604364 J02.9 Health Concerns Section Related Observation LastModified by Organization Detai ls LastModified Time None Recorded Concern Status LastModified by Organization Details LastModified Time None Recorded Advance Directives Directive None Recorded Payers Encounter Date Sequence Insurance Name Policy Number Policy Davis Covered Member ID Davis Member ID Guarantor Name 01/14/2021 1 [facility] (MEDICAID REPLACEMENT - HMO) JENNY Ocampo [id number] Sylvia Ocampo 05/13/2021 1 [facility] (MEDICAID REPLACEMENT - HMO) JENNY Crump Terrence [id number] Sylvia Ocampo 11/12/2022 1 [facility] TYPE I (HMO) [id number] Sylvia Ocampo [id number] Sylvia Ocampo Notes Date Note Type Note Provider Name and Address Organization Details Recorded Time 3 text/html Sore throatReported bypatient.Source of patient informationInformation obtained from patient; Patient arrived at Urgent Care ambulatory Location:throat Severity:mild Quality:mild irritation- no bad. Onset/Timin days Associated Symptoms:no cough; no sputum production; no shortness of breath; no wheezing; no sinus pain; no vomiting; no nausea; No hoarseness;sore throat Context:sick contact Modifying Factors:exposed to Strep household *Notes:The patient reports strep 1 month ago. Her boyfriend tested positive for strep yesterday. She just wanted to come in an be checked for strep. No fever. The patient states that she just has a little irritation but wouldn't call it a sore throat. No runny nose. Mild ear clog AMALIA MARTINEZ [address] [place], [address], [place] - [facility] 11/12/2022 17:00:54 OBGyn Episode No OBEpisode recorded.
--- OUTSIDE RECORDS SUMMARY | 2024-08-18 10:02 | XMS_ITS | Encounter Summary ---
Author Organization [facility] Address [address] [place] [address] Care Team Providers Care Warper Tender Name Role Phone Roxy Cruz MD Primary Care Provider Thang Florentino MD Primary Care Provider Josh anne [facility], Pcp Primary Care Provider Daisy Cheema MD Primary Care Provider [phone] Reason for Visit * Reason Onset Date Comments concentration problems 06/25/2019 Encounter Details Date Type Department Care Team Description 06/25/2019 Pt. Non Urgent Medic al Question Adult Medicine [address] [address] Thang Carl MD Social History Tobacco Use Types Packs/Day Years Used Date Smoking Tobacco: Some Days Smokeless Tobacco: Never Comments:occasional tobacco Alcohol Use [...] encounter Miscellaneous Notes * Telephone Encounter - Shea Chapa M.A. - 06/25/2019 1:17 PM ESTFrom: Sylvia Ocampo To: Thang Carl MD Sent: 06/25/2019 1:15 PM EST Subject: Struggling to concentrate Hello I have been very stressed and struggling. 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 documented in this encounter Plan of Treatment Not on file documented as of this encounter Visit Diagnoses Not on filedocumented in this encounter Care Teams Warper Tender Relationship Specialty Start Date End Date Roxy Cruz MD PCP - General Internal Medicine 06/25/19 01/15/21 Thang Carl MD PCP - General Internal Medicine 01/16/21 04/21/22 [facility] PCP - General Internal Medicine 04/22/22 05/31/22 Daisy Torrez MD [address] [place] [address] PCP - General Internal Medicine 06/01/22 documented as of this encounter
[2024-08-18 10:12] LABS: Alanine Aminotransferase 16 U/L (0-31); Albumin Level 4.4 g/dL (3.5-5.0); Alkaline Phosphatase 64 U/L (39-117); Anion Gap 14 (12-20); Aspartate Amino Transferase 17 U/L (5-31); Bilirubin Total 0.2 mg/dL (0.0-1.0); Blood Urea Nitrogen 10 mg/dL (9-16); Calcium 8.7 mg/dL (8.4-10.2); Carbon Dioxide 22 mmol/L (22-29); Chloride 111 mmol/L (96-108); Creatinine Clr Calc Pharmacy 140.6; Estimated Glomerular Filt Rate > 60; Glucose Random 89 mg/dL (60-115); Potassium 4.3 mmol/L (3.3-5.1); Sodium 143 mmol/L (135-145); Total Protein 6.9 g/dL (6.5-8.0)
[2024-08-18 10:16] LABS: HCG Quantitative < 2 mIU/mL
[2024-08-18 10:49] VITALS: BP 130/81; PULSE 97; RESP 16; TEMP 36.7; O2SAT 100
[2024-08-18 11:00] LABS: Appearance Urine Cloudy; Color Urine Yellow; Glucose Urine UA Negative (Negative); Leukocyte Esterase Urine Moderate (2+) (Negative); Nitrite Urine Negative (Negative); PH 7.5 (5.0-9.0); Specific Gravity - Urine 1.025 (1.005-1.025); UMIC TRIGGER UACC YES; Urine Blood Negative (Negative); Urine Ketones Trace mg/dL (Negative); Urine Protein Negative (Neg-Trace)
[2024-08-18 11:04] LABS: Bacteria Urine 4+ (None Seen); Hyaline Casts Urine 0-2 /LPF (0-2); RBC Urine 0-2 /HPF (0-2); Squamous Epithelial Cell Urine >20 /HPF (0-2); UACC Culture Trigger YES; WBC Urine 21-50 /HPF (0-5)
[2024-08-18 12:22] VITALS: BP 130/81; PULSE 97; RESP 16; TEMP 36.7; O2SAT 100
[2024-08-18 12:59] LABS: Bacterial Vaginosis PCR POSITIVE (Negative); Candida Group PCR NOT DETECTED (Not Detect); Candida glab krusei PCR NOT DETECTED (Not Detect); Trichomonas vaginalis PCR NOT DETECTED (Not Detect)
[2024-08-18 13:30] LABS: CT PCR NOT DETECTED (Not Detect.); NG PCR NOT DETECTED (Not Detect.)
== END 2024-08-18 12:37 | disposition home or self-care (01) ==
PROVIDERS: Physician Assistant Medical; Registered Nurse Emergency; Emergency Provider Emergency Medicine
DX: N39.0 Urinary tract infection, site not specified (principal); R10.31 Right lower quadrant pain; R10.2 Pelvic and perineal pain; Z79.899 Other long term (current) drug therapy
CPT/HCPCS: 36415; 74176; 80053; 81001; 81003; 81515; 84702; 85025; 87086; 87491; 87591; 99283; 99284

== ENCOUNTER → 2024-08-18 10:44 | Outpatient (BNV) | payer OTHER, SELFPAY | PROVIDERS: Emergency Provider Emergency Medicine; Visit Provider Radiology Diagnostic Radiology | DX: R10.30 Lower abdominal pain, unspecified (principal); K62.89 Other specified diseases of anus and rectum | CPT/HCPCS: 74176 ==

== ENCOUNTER 2025-03-17 04:22 | Emergency (ER) | payer OTHER, SELFPAY ==
--- NOTE | ~2025-03-17 | CT_ITS ---
CLINICAL HISTORY: lower abdominal pain, concern for appy CT abdomen and pelvis with IV contrast Comparison: CT - CT ABDOMEN PELVIS W IV CON - 03/17/25 09:[address]/SR - CT ABDOMEN PELVIS WO IV CON - 08/18/24 10:48 EDT Findings: Lung bases show no active disease. No dependent layering pleural effusions. The heart is not enlarged. Liver normal size and contour. No focal hepatic lesions. Patent hepatic and portal veins. Physiologic distention of the gallbladder with no radiopaque gallstones. Homogeneous enhancement of the pancreas. No splenomegaly. Normal adrenal glands. Symmetrical renal excretion with no segmental or diffuse renal parenchymal disease or evidence of obstructive uropathy/hydroureteronephrosis. Normal caliber abdominal aorta. Bowel demonstrates a nonobstructive pattern. No free air. Normal appendix and terminal ileum. Increased stool burden.No significant diverticular disease. No intraperitoneal, retroperitoneal, pelvic or inguinal masses lymphadenopathy or abnormal fluid collections. Normal CT appearance right ovary. 3 cm probable cyst left adnexa. Partially decompressed urinary bladder. No vertebral body compression fractures or spondylolisthesis. No bony destructive lesions. Impression: 1. Normal appendix and terminal ileum. Increased stool burden. 2. No renal parenchymal disease or evidence of obstructive uropathy. Normal CT appearance of the right ovary. Probable cyst left adnexa. 3. Hepatic steatosis. No radiopaque gallstones. This document has been electronically signed by: Roshan Prabhakar MD on 03/17/2025 11:57:47
[2025-03-17 04:33] VITALS: BP 114/62; PULSE 91; RESP 16; TEMP 36.4; O2SAT 99; BMI 28.2
--- OUTSIDE RECORDS SUMMARY | 2025-03-17 04:51 | XMS_ITS | Clinical Summary ---
Author Organization [facility] Address [address] [place] [address] Care Team Providers Care Survival Specialist Name Role Phone Daisy Torrez MD Primary Care Provider [phone] Allergies Active Allergy Reactions Severity Noted Date [...] recommended stretching and heat. No evidence of finance professor or urinary infection. She was encouraged to return or see her PCP if not improved in the next couple weeks or if she develops fevers, chills, N/V. Tinea versicolor 11/10/2017 MS (multiple sclerosis) 02/28/2015 Overview: MRI brain 04/26/2014 from [facility]. Showing stability. Sees Kenya Gu at [facility]- previously on Gilenya, stopped [...] through breast milk with minimal known about joint terminal attack controller affects. We will perform random UDS to ensure amount is decreasing to demonstrate lack of ongoing use. She understood. Insufficient care 08/19/202205/18 Overview: 1. [facility] site: [address] 2. Delivery site: [facility] 3. Mobile Mommas: 4. Dating criteria: [...] her abnormal bleeding may be related to longterm POP use. Not . Will observe and if continues to be a problem, will come back in. Supervision of normal first 07/06/2013 03/06/2015 Overview: SAUMYA 02/21/14 based on LMP, c/w first trimester U/S 1. [facility] site: [place] 2. Delivery site: [facility] 3. Blood type: O neg, Ab neg. [...] 94 05/18/2023 11:41 AM EST Temperature 36.6 C (97.8 F) 12/03/2022 4:18 PM EDT Respiratory Rate 16 03/08/2023 10:29 AM EDT [...] 05/17/202305/17, 11/10/2017, 12/25/2013 CHOLESTEROL SCREENING 05/17/2023 05/17/2018 CERVICAL CANCER SCREENING 01/17/20242020, 12/23/2017, 08/29/2014, Additional history exists BMI CHECK/ADVISE 05/09/2024 05/18/2023, , 09/25/2019, Additional history exists DEPRESSION SCREENING/FOLLOWUP 05/09/2024 06/29/2019 SOCIAL NEEDS SCREENING 05/09/2024 Covid-19 Vaccine (2022-06 4 season) 2025 07/04/2021, 01/28/2021, 01/07/2021 INFLUENZA (#1) 2025 02/08/2022 DTAP/TDAP/TD (3 - Td or Tdap) 12/16/2032 12/16/2022, 01/22/2014 PNEUMOCOCCAL VACCINE FOR HIG H RISK PATIENTS (#1) 2055 Care Teams Survival Specialist Relationship Specialty Start Date End Date Daisy Torrez MD [address] [place] [address] PCP - General Internal Medicine 06/01/22
--- OUTSIDE RECORDS SUMMARY | 2025-03-17 04:51 | XMS_ITS | Encounter Summary ---
Author Organization [facility] Address [address] [place] [address] Care Team Providers Care Hop Worker Name Role Phone Thang Carl MD Primary Care Provider Roxy Hubbard MD Primary Care Provider Thang Florentino MD Primary Care Provider Josh Mckinley, Pcp Primary Care Provider Daisy Cheema MD Primary Care Provider [phone] Reason for Visit * Reason Onset Date Comments REFERRAL 07/23/2017 Encounter Details Date Type Department Care Team Description 07/23/2017 Telephone Gastroenterology - [address] [address] Dyan Lewis MD REFERRAL Social History Tobacco Use Types Packs/Day [...] encounter Miscellaneous Notes * Telephone Encounter - Dyan Lewis MD - 07/25/2017 3:40 PM EDT Routine * Telephone Encounter - Sugar Matthews - 07/23/2017 10:03 AM EDT Patient referred for an urgent appointment for Abdominal Pain Please review if urgent or routine? documented in this encounter Plan of Treatment Not on file documented as of this encounter Visit Diagnoses Not on filedocumented in this encounter Care Teams Hop Worker Relationship Specialty Start Date End Date Thang Carl MD PCP - General Internal Medicine 10/12/13 06/24/19 Roxy Cruz MD PCP - General Internal Medicine 06/25/19 01/15/21 Thang Carl MD PCP - General Internal Medicine 01/16/21 04/21/22 [facility] Pcp PCP - General Internal Medicine 04/22/22 05/31/22 Daisy Torrez MD [address] [place] [address] PCP - General Internal Medicine 06/01/22 documented as of this encounter
--- OUTSIDE RECORDS SUMMARY | 2025-03-17 04:51 | XMS_ITS | Encounter Summary ---
Author Organization [facility] Address [address] [place] [address] Care Team Providers Care Oil Speculator Name Role Phone Daisy Torrez MD Primary Care Provider [phone] Encounter Details Date Type Department Care Team Description 09/22/2022 SCAN Medical Records [address] [place] [address] Abstract, Provider Social History Tobacco Use Types [...] on filedocumented in this encounter Care Teams Oil Speculator Relationship Specialty Start Date End Date Daisy Torrez MD [address] [place] [address] PCP - General Internal Medicine 06/01/22 documented as of this encounter
--- OUTSIDE RECORDS SUMMARY | 2025-03-17 04:51 | XMS_ITS | Encounter Summary ---
Author Organization [facility] Address [address] [place] [address] Care Team Providers Care Doweling Machine Operator Name Role Phone Thang Carl MD Primary Care Provider Roxy Hubbard MD Primary Care Provider Thang Florentino MD Primary Care Provider Josh Mckinley, Pcp Primary Care Provider Daisy Cheema MD Primary Care Provider [phone] Reason for Visit * Reason Onset Date Comments Testing 03/30/2017 Encounter Details Date Type Department Care Team Description 03/30/2017 Telephone Radiology - [address] [address] Deyanira Barboza CNM Testing Social History Tobacco Use Types Packs/Day Years [...] encounter Miscellaneous Notes * Telephone Encounter - Toshia Riberacuso - 03/30/2017 3:32 PM EST FYI: Sylvia Ocampo has not responded to the telephone calls that were made as well as the letter that was sent to schedule a SONO PELVIS COMPLETE Therefore we are removing the test from our Scheduled Orders Report. Please note that this test must be reordered if required in the future. Thank you, [facility] documented in this encounter Plan of Treatment Not on file documented as of this encounter Visit Diagnoses Not on filedocumented in this encounter Care Teams Doweling Machine Operator Relationship Specialty Start Date End Date Thang Carl MD PCP - General Internal Medicine 10/12/13 06/24/19 Roxy Cruz MD PCP - General Internal Medicine 06/25/19 01/15/21 Thang aCrl MD PCP - General Internal Medicine 01/16/21 04/21/22 [facility] PCP - General Internal Medicine 04/22/22 05/31/22 Daisy Torrez MD [address] [place] [address] PCP - General Internal Medicine 06/01/22 documented as of this encounter
--- OUTSIDE RECORDS SUMMARY | 2025-03-17 04:51 | XMS_ITS | Encounter Summary ---
Author Organization [facility] Address [address] [place] [address] Care Team Providers Care Obstetrician Name Role Phone Thang Carl MD Primary Care Provider Roxy Hubbard MD Primary Care Provider Thang Florentino MD Primary Care Provider Josh Mckinley, Pcp Primary Care Provider Daisy Cheema MD Primary Care Provider [phone] Encounter Details Date Type Department Care Team Description 03/12/2016 Top Carrier Report Medical Records [address] [place] [address] eJronimo Aaron MD Social History Tobacco Use Types [...] on filedocumented in this encounter Care Teams Obstetrician Relationship Specialty Start Date End Date Thang Carl MD PCP - General Internal Medicine 10/12/13 06/24/19 Roxy Cruz MD PCP - General Internal Medicine 06/25/19 01/15/21 Thang Carl MD PCP - General Internal Medicine 01/16/21 04/21/22 [facility] PCP - General Internal Medicine 04/22/22 05/31/22 Daisy Torrez MD [address] [place] [address] PCP - General Internal Medicine 06/01/22 documented as of this encounter
--- OUTSIDE RECORDS SUMMARY | 2025-03-17 04:51 | XMS_ITS | Clinical Summary ---
Author Organization [facility] Address [address] [place] [address] Care Team Providers Care Chief Design Engineer Name Role Phone Thang Carl MD Primary Care Provider [phone] Allergies Active Allergy Reactions Criticality Noted Date Comments Iodinated Contrast Media Medium 03/02/2016 Other reaction(s): THROAT ITCHY AND HIVES Medications Medication Sig Dispensed Refills Start Date End Date Status ergocalciferol (VITAMIN D2) capsule 63907 units Take 1 capsule (50,000 Units total) [...] 77 12/22/2023 3:59 PM EDT Temperature 36.1 C (96.9 F) 11/29/2023 9:00 AM EDT Respiratory Rate 18 11/29/2023 11:34 AM EDT [...] (Pap Smear) 2011 COVID-19 Vaccine ( season) 2025 02/21/2022, 07/04/2021, 01/28/2021, Additional history exists Influenza Vaccine (#1) 2025 02/08/2022, 2020 DTap / Tdap / Td (3 - Td or Tdap) 12/16/2032 12/16/2022, 01/22/2014 Hepatitis B Vaccines Completed 07/18/2018, 01/18/2018, 11/10/2017 Pneumococcal Vaccine Aged Out No long er eligible based on patient's age to complete this topic RSV Ped < 20 months Aged Out No longe r eligible based on patient's age to complete this topic Care Teams Chief Design Engineer Relationship Specialty Start Date End Date Thang Carl MD PCP - General Internal Medicine 12/12/20
--- OUTSIDE RECORDS SUMMARY | 2025-03-17 04:51 | XMS_ITS | Clinical Summary ---
Author Organization [facility] Address [address] [place] [address] Phone Care Team Providers Care Appraisal Manager Name Role Phone Daisy Torrez MD Primary Care Provider [phone] Allergies Active Allergy Reactions Criticality Noted Date Comments Iodinated Contrast Media Hives,Itching 07/18/19 24 Medications ublituximab-xii y (BRIUMVI IV) Infuse into a venous catheter. Active sertraline (ZOLOFT) 50 mg tablet Take 1 tablet (50 mg total) by mouth 1 (one) time each day. 30 each 5 11/05/2024 5 Active amphetamine-dex troamphetamine (ADDERALL) 10 mg tablet Take 1 tablet (10 mg total) by mouth 1 (one) time each day. Max Daily Amount: 10 mg 30 each 01/24/2025 Active ergocalciferol (VITAMIN D-2) 1,250 mcg (50,000 unit) capsule Take 1 capsule (50,000 Units total) by mouth 1 (one) time per week. 12 each 02/11/2025 5 Active Active Problems Problem Noted Date Diagnosed Date Anxiety 12/16/2022 Overview (06/29/2024): 12/16-Taking Zoloft Tinea versicolor 11/10/2017 MS (multiple sclerosis) 02/28/2015 Overview (07/18/2023): MRI brain 04/26/2014 from [facility]. Showing stability. Sees Kenya Gu at [facility] [place]- previously on [place], stopped in Jun 2022 [...] Encounters Date Type Department Care Team Description 12/27/2024 9:49 AM EDT - 12/27/2024 11:59 PM EDT Hospital Encounter [facility] MRI [address] [place] [address] Multiple sclerosis ([facility] V24, [facility] V28) Discharge Disposition: Home or Self Care 12/27/2024 9:49 AM EDT - 12/27/2024 11:59 PM EDT Hospital Encounter [facility] MRI [address] [place] [address] Multiple sclerosis ([facility] V24, [facility] V28) Discharge Disposition: Home or Self Care from Last 3 Months Immunizations Immunization Administration Dates Next Due Pfizer (ages 12 & older) Bivalent, COVID-19 02/06 Surgical History Surgery Date Site/Laterality [...] constipation and now having diarrhea Multiple sclerosis DX:Multiple s clerosis (HCC) Positive GBS test 02/14/2023 DX:Positive GB S test MS (multiple sclerosis) DX:MS (m ultiple sclerosis) (HCC) Family History Medical History Relation Name Comments [...] Births 2 1 1 0 0 0 1 1 Date Outcome GA Total Labor Labor/2nd/3rd Weight Sex Type Anes PTL Lynn A1 A5 Name Clin 02/15 Term 39w 0d 3204 g (113 oz) M Vag-S pont Epidura l Livin g [place] y Last Filed Vital Signs Vital Sign Reading Time Taken Comments Blood Pressure 114/76 11/05/2024 10:00 AM EDT Pulse 75 11/05/2024 10:00 AM EDT Temperature 36.1 C (96.9 F) 11/05/2024 10:00 AM EDT Respiratory Rate 16 11/05/2024 10:00 AM EDT Oxygen Saturation 98% 11/05/2024 10:00 AM EDT Inhaled Oxygen Concentration - - Weight 87.6 kg (193 lb 3.2 oz) 08/02/2024 9:07 A M EDT Height 175.3 cm (5' 9 ) 08/02/2024 9:07 AM EDT Body Mass Index 28.53 08/02/2024 9:07 AM EDT Plan of Treatment Upcoming Encounters Date Type Department Care Team (Late st Contact Info) Description 03/19/2025 8:00 AM EST Telemedicine [facility] [address] [phone] Gilmer Gomez MD [address] [place] [address] 04/23/2025 8:00 AM EST Appointment [facility] - [address] [phone] Health Maintenance Due Date Last Done Comments HIV Screening 04/11/2022 Hepatitis C Screening 04/11/2022 Social Influencers of Health Screening 04/11/2022 Cervical Cancer Screening: Pap Smear 01/17/2024 01/16/2021, 12/23/2017 Depression Screening 05/09/2024 COVID-19 Vaccine ( season) 2025 02/21/2022, 07/04/2021, 01/28/2021, Additional history exists Influenza Vaccine (#1) 2025 , 02/08/2022, 04/28/2021 DTaP,Tdap,and Td Vaccines (3 - Td or Tdap) 12/16/2032 12/16/2022, 01/22/2014 RSV Immunization Adult Patients (1 - 1-dose 75+ series) 2065 Meningococcal ACWY Vaccine Completed 03/02/2007 HPV Vaccines Completed 11/07/2007, 06/09, 03/02/2007 Hepatitis B Vaccines Completed 07/18/2018, 01/18/2018, 11/10/2017 HIB Vaccines Aged Out No longer eligi [...] 5 Years) and At-Risk Patients (6 to 49 Years) Aged Out No longer eligible based on patient's age to complete this topic RSV Immunization Patients Under 20 months Aged Out No longer eligible based on patient's age to complete this topic Varicella Vaccines Aged Out No longer eligible based on patient's age to complete this topic Procedures Procedure Name Priority Date/Time Associated Diagnosis Comments MR CERVICAL SPINE WO CONTRAST Routine 12/27/2024 10:57 AM EDT Multiple sclerosis ([facility] V24, [facility] V28) MR BRAIN WO CONTRAST Routine 12/27/2024 10:56 AM EDT Multiple sclerosis ([facility] V24, [facility] V28) PAP SMEAR Routine 01/16/2021 from Last 3 Months or Most Recently Relevant to Health Maintenance Results * MR Cervical Spine wo Contrast (12/27/2024 10:57 AM EDT) Anatomical Region Laterality Modality C-spine, Spine Magnetic Resonan ce 12/31/2024 10:1 8 AM EDT Impressions 12/31/2024 10:49 AM EDT Multiple stable demyelinating lesions throughout the cervical cord. No new lesions. -------- FINAL REPORT -------- Dictated By: LILLIAN INIGUEZ Dictated Date: 12/31/2024 10:18 ET Assigned Physician: LILLIAN INIGUEZ Reviewed and Electronically Signed By: LILLIAN INIGUEZ Signed Date: 12/31/2024 10:49 ET Workstation ID: [id number] Transcribed By: Self Edit Transcribed Date: 12/31/2024 10:18 ET Narrative 12/31/2024 10:49 AM EDT PROCEDURE: Cervical spine MRI INDICATION: Multiple sclerosis TECHNIQUE: Multiplanar, multisequence MRI of the Cervical spine without contrast COMPARISON: 12/09/2023 FINDINGS: Straightening of the normal cervical lordosis is similar compared to prior. No fracture or suspicious marrow replacing lesion. Disc height and signal are preserved. Facet joints are normal. Multiple T2 hyperintense foci throughout the cervical cord are similar compared to the prior exam. No new lesions are detected. No epidural collection or mass is seen within the spinal canal. Paraspinal muscles are normal. Foramen magnum is normal.. Findings by level: C2-C3: No focal disc protrusion, facet arthropathy, foraminal stenosis, or spinal canal stenosis. C3-C4: No focal disc protrusion, facet arthropathy, foraminal stenosis, or spinal canal stenosis. C4-C5: No focal disc protrusion, facet arthropathy, foraminal stenosis, or spinal canal stenosis. C5-C6: No focal disc protrusion, facet arthropathy, foraminal stenosis, or spinal canal stenosis. C6-C7: No focal disc protrusion, facet arthropathy, foraminal stenosis, or spinal canal stenosis. C7-T1: No focal disc protrusion, facet arthropathy, foraminal stenosis, or spinal canal stenosis. Procedure Note Lillian Iniguez MD - 12/31/2024 PROCEDURE: Cervical spine MRI INDICATION: Multiple sclerosis TECHNIQUE: Multiplanar, multisequence MRI of the Cervical spine withoutcontrast COMPARISON: 12/09/2023 FINDINGS: Straightening of the normal cervical lordosis is similar compared toprior. No fracture or suspicious marrow replacing lesion. Disc height and signal are preserved. Facet joints are normal. Multiple T2 hyperintense foci throughout the cervical cord are similarcompared to the prior exam. No new lesions are detected. No epiduralcollection or mass is seen within the spinal canal. Paraspinal muscles are normal. Foramen magnum is normal.. Findings by level: C2-C3: No focal disc protrusion, facet arthropathy, foraminal stenosis, orspinal canal stenosis. C3-C4: No focal disc protrusion, facet arthropathy, foraminal stenosis, orspinal canal stenosis. C4-C5: No focal disc protrusion, facet arthropathy, foraminal stenosis, orspinal canal stenosis. C5-C6: No focal disc protrusion, facet arthropathy, foraminal stenosis, orspinal canal stenosis. C6-C7: No focal disc protrusion, facet arthropathy, foraminal stenosis, orspinal canal stenosis. C7-T1: No focal disc protrusion, facet arthropathy, foraminal stenosis, orspinal canal stenosis. IMPRESSION: Multiple stable demyelinating lesions throughout the cervical cord. Nonew lesions. -------- FINAL REPORT -------- Dictated By: LILLIAN INIGUEZ Dictated Date: 12/31/2024 10:18 ET Assigned Physician: LILLIAN INIGUEZ Reviewed and Electronically Signed By: LILLIAN INIGUEZ Signed Date: 12/31/2024 10:49 ET Workstation ID: [id number] Transcribed By: Self Edit Transcribed Date: 12/31/2024 10:18 ET Kenya HOLLAND IMJud[facility] MRI PROCEDURES Final Res ult * MR Brain wo Contrast (12/27/2024 10:56 AM EDT) Anatomical Region Laterality Modality Head and Neck Magnetic Resonan ce 12/31/2024 10:5 5 AM EDT Impressions 12/31/2024 12:05 PM EDT Stable supratentorial and infratentorial demyelinating lesions. No new lesions. -------- FINAL REPORT -------- Dictated By: LILLIAN INIGUEZ Dictated Date: 12/31/2024 10:55 ET Assigned Physician: LILLIAN INIGUEZ Reviewed and Electronically Signed By: LILLIAN INIGUEZ Signed Date: 12/31/2024 12:05 ET Workstation ID: [id number] Transcribed By: Self Edit Transcribed Date: 12/31/2024 10:55 ET Narrative 12/31/2024 12:05 PM EDT PROCEDURE: Brain MRI INDICATION: Multiple sclerosis TECHNIQUE: Multiplanar, multisequence MRI of the brain without contrast. COMPARISON: 12/09/2023 FINDINGS: No acute infarct, mass effect, or intracranial hemorrhage. Sella and foramen magnum are normal. Stable T2 hyperintense foci throughout the supratentorial and infratentorial white matter. For example right greater than left lateral pontine T2 hyperintensity is unchanged. No new lesions. No abnormal intracranial susceptibility artifact. Ventricles are normal in size. No hydrocephalus. Major intracranial arterial flow voids are within normal limits. Scattered mucosal thickening seen throughout the sinuses with left maxillary sinus retention cyst. Small bilateral mastoid fluid. Orbits and extra cranial soft tissues are normal. Calvarium is normal. Procedure Note Lillian Iniguez MD - 12/31/2024 PROCEDURE: Brain MRI INDICATION: Multiple sclerosis TECHNIQUE: Multiplanar, multisequence MRI of the brain without contrast. COMPARISON: 12/09/2023 FINDINGS: No acute infarct, mass effect, or intracranial hemorrhage. Sella and foramen magnum are normal. Stable T2 hyperintense foci throughout the supratentorial andinfratentorial white matter. For example right greater than left lateralpontine T2 hyperintensity is unchanged. No new lesions. No abnormalintracranial susceptibility artifact. Ventricles are normal in size. No hydrocephalus. Major intracranial arterial flow voids are within normal limits. Scattered mucosal thickening seen throughout the sinuses with leftmaxillary sinus retention cyst. Small bilateral mastoid fluid. Orbits and extra cranial soft tissues are normal. Calvarium is normal. IMPRESSION: Stable supratentorial and infratentorial demyelinating lesions. No newlesions. -------- FINAL REPORT -------- Dictated By: LILLIAN INIGUEZ Dictated Date: 12/31/2024 10:55 ET Assigned Physician: LILLIAN INIGUEZ Reviewed and Electronically Signed By: LILLIAN INIGUEZ Signed Date: 12/31/2024 12:05 ET Workstation ID: [id number] Transcribed By: Self Edit Transcribed Date: 12/31/2024 10:55 ET Kenya HOLLAND IM MRI PROCEDURES Final Res ult * Pap smear (01/16/2021) 01/16/2021 Narrative HISTORICAL TESTING LAB RESULTING AGENCY - 01/30/2021 7:55 AM EDT [id number] THINPREP PAP, IMAGED: NEGATIVE FOR SQUAMOUS INTRAEPITHELIAL LESION AND MALIGNANCY . MIKE WINSTON , ZOHAIB(ASCP) (CASE ELECTRONICALLY SIGNED 01 29 2021) RESULT OF APTIMA HIGH RISK HPV ASSAY: HIGH RISK HPV: NEGATIVE (SEROTYPES 16,18,31,33,35,39,45,51,52,56,58,59,66,68) COMPLETED ON 2021-01-21 ADEQUACY: SATISFACTORY ENDOCERVICAL/TRANSFORMATION ZONE COMPONENT PRESENT. SOURCE: THINPREP PAP HPV ANY DX: REFLEX 16 AND 18, CERVICAL, IMAGED CLINICAL INFORMATION: HPV ANY DIAGNOSIS. Z12.4, PAP HX NEG. [facility] LAB CYTOLOGY ORDERABLES Fin al Result HISTORICAL TESTING LAB RESULTING AGENCY from Last 3 Months or Most Recently Relevant to Health Maintenance Insurance [facility] Care Teams Appraisal Manager Relationship Specialty Start Date End Date Daisy Torrez MD [address] [place] [phone] PCP - General Internal Medicine 06/29/24
--- OUTSIDE RECORDS SUMMARY | 2025-03-17 04:51 | XMS_ITS | Encounter Summary ---
Author Organization [facility] Address [address] [place] [address] Care Team Providers Care Steward/Stewardess Tourist Class Name Role Phone Thang Carl MD Primary Care Provider Roxy Hubbard MD Primary Care Provider Thang Florentino MD Primary Care Provider Josh Mckinley, Pcp Primary Care Provider Daisy Cheema MD Primary Care Provider [phone] Encounter Details Date Type Department Care Team Description 02/27/2016 Pulp Drier Report Medical Records [address] [place] [address] Kenya Juárez Social History Tobacco Use Types Packs/Day Years [...] on filedocumented in this encounter Care Teams Steward/Stewardess Tourist Class Relationship Specialty Start Date End Date Thang Carl MD PCP - General Internal Medicine 10/12/13 06/24/19 Roxy Cruz MD PCP - General Internal Medicine 06/25/19 01/15/21 Thang Carl MD PCP - General Internal Medicine 01/16/21 04/21/22 [facility], Pcp PCP - General Internal Medicine 04/22/22 05/31/22 Daisy Torrez MD [address] [place] [id number] PCP - General Internal Medicine 06/01/22 documented as of this encounter
--- OUTSIDE RECORDS SUMMARY | 2025-03-17 04:51 | XMS_ITS ---
Author Name [facility] Unknown History of Medication Use Medication Directions Dispensed Refills Start Date End Date Status acetaminophen (TYLENOL) tablet 975 mg 975 mg, Oral, Once, On Tue11/29/23 at 1045, For 1 doseAdminister 30 minutes prior to ublituximab. completed diphenhydrAMINE (BENADRYL) capsule 50 mg 50 mg, Oral, Once, On Tue11/29/23 at 1045, For 1 doseGive 30 minutes prior to ublituximab. See IV diphenhydramine order. Please give PO or IV. Common Side Effects: Drowsiness, stomach upset, confusion, dry mouth. 4 completed methylPREDNISolone sodium succinate (SOLU-Medrol) injection 125 mg 125 mg, Intravenous, Once, On Tue11/29/23 at 1045, For 1 doseGive 30 minutes prior to ublituximab. Administer over 2-3 minutes 4 completed Ublituximab-xiiy (BRIUMVI) 450 mg in sodium chloride (NS) 0.9 % 250 mL IVPB 450 mg, Intravenous, Once, On Tue11/29/23 at 1115, For 1 doseStart at 100mL/hr for the first 30 minutes, increase to 400mL/hr for the remaining 30 minutes. Total duration = 1 hour (or longer). 4 completed sertraline (ZOLOFT) 50 MG tablet Take 1 tablet (50 mg total) by mouth daily. 4 active ergocalciferol (VITAMIN D2) capsule 67866 units Take 1 capsule (50,000 Units total) by mouth once a week. 4 active sertraline (ZOLOFT) 50 MG tablet TAKE 1 TABLET BY MOUTH EVERY DAY 4 active Vit-Iron Carbonyl-FA (Prenatabs Rx) 29-1 MG TABS Take 1 tablet by mouth daily. 3 024 active Allergies Allergen Reaction Severity Comment Documented Date Source Statu s IODINATED CONTRAST MEDIA Other reaction(s): THROAT ITCHY AND HIVES 03/02/2016 [facility] active Problems Problem Status Onset Date Problem Type Date of Resoluti on Source Multiple sclerosis active 2022-09-06 ProblemAct [facility]
--- OUTSIDE RECORDS SUMMARY | 2025-03-17 04:51 | XMS_ITS | Encounter Summary ---
Author Organization [facility] Address [address] [place] [address] Care Team Providers Care Building Serviceman Name Role Phone Daisy Torrez MD Primary Care Provider [phone] Encounter Details Date Type Department Care Team Description 11/10/2022 Telephone Adult Medicine [facility] [address] [place] [address] Daisy Torrez MD [address] [place] [address] Social History Tobacco Use Types Packs/Day Years [...] on filedocumented in this encounter Care Teams Building Serviceman Relationship Specialty Start Date End Date Daisy Torrez MD [address] [place] [id number] PCP - General Internal Medicine 06/01/22 documented as of this encounter
--- OUTSIDE RECORDS SUMMARY | 2025-03-17 04:51 | XMS_ITS | Encounter Summary ---
Author Organization [facility] Address [address] [place] [address] Care Team Providers Care Customer Manager Name Role Phone Thang Carl MD Primary Care Provider Roxy Hubbard MD Primary Care Provider Thang Florentino MD Primary Care Provider Josh Mckinley, Pcp Primary Care Provider Daisy Cheema MD Primary Care Provider [phone] Reason for Visit * Reason Onset Date Comments Faxed Refill 02/06/2019 norethindrone (C AMILA) 0.35 MG tablet Encounter Details Date Type Department Care Team Description 02/06/2019 Refill OBGYN Romero Heaton [address] [place] [address] Radha Quezada CN [address] [place] [address] Faxed Refill (norethindrone (SONIYA) 0.35 MG tablet) Social History Tobacco Use Types Packs/Day Years [...] encounter Miscellaneous Notes * Telephone Encounter - Blanca Curiel - 02/12/2019 1:42 PM EDT Appointment 03/08/2019 please consider refill. * Telephone Encounter - Claudia Amador - 02/12/2019 12:27 PM EDT Appointment scheduled * Telephone Encounter - Yamini Juarez - 02/06/2019 10:09 AM EDT [facility] - last annual exam 12/23/17. Phone number permanently busy. Sentmessage by My chart to call and schedule an AG so we can fill script. documented in this encounter Plan of Treatment Not on file documented as of this encounter Visit Diagnoses Diagnosis Encounter for surveillance of contraceptive pills Surveillance of previously prescribed contraceptive pill documented in this encounter Care Teams Customer Manager Relationship Specialty Start Date End Date Thang Carl MD PCP - General Internal Medicine 10/12/13 06/24/19 Roxy Cruz MD PCP - General Internal Medicine 06/25/19 01/15/21 Thang Carl MD PCP - General Internal Medicine 01/16/21 04/21/22 [facility], Pcp PCP - General Internal Medicine 04/22/22 05/31/22 Daisy Torrez MD [address] [place] [id number] PCP - General Internal Medicine 06/01/22 documented as of this encounter
--- OUTSIDE RECORDS SUMMARY | 2025-03-17 04:51 | XMS_ITS | Encounter Summary ---
Author Organization [facility] Address [address] [place] [address] Care Team Providers Care Piling Setter Name Role Phone Thang Carl MD Primary Care Provider Roxy Hubbard MD Primary Care Provider Thang Florentino MD Primary Care Provider Josh Mckinley, Pcp Primary Care Provider Daisy Cheema MD Primary Care Provider [phone] Encounter Details Date Type Department Care Team Description 11/27/2013 Landfill Grader Report Medical Records [address] [place] [address] Ponce Winstno MD Social History Tobacco Use Types Packs/Day [...] on filedocumented in this encounter Care Teams Piling Setter Relationship Specialty Start Date End Date Thang Carl MD PCP - General Internal Medicine 10/12/13 06/24/19 Roxy Cruz MD PCP - General Internal Medicine 06/25/19 01/15/21 Thang Carl MD PCP - General Internal Medicine 01/16/21 04/21/22 [facility] PCP - General Internal Medicine 04/22/22 05/31/22 Daisy Torrez MD [address] [place] [address] PCP - General Internal Medicine 06/01/22 documented as of this encounter
--- OUTSIDE RECORDS SUMMARY | 2025-03-17 04:51 | XMS_ITS | Data Portability ---
Author Organization AMALIA Juarez [facility] [address] Address [address] [place] [address] Care Team Providers Care Industry Analyst Name Role Phone [facility] Family Medicine Assessment No assessment recorded. Plan of Treatment Reminders Order Date Submit Date Provider Last Modified By Organization Details Last Modified Time Details Appointments None recorded. Lab rapid strep group A, throat 2022 023 [email or web address] [facility], [address] [place] [address], [id number], 16:36:42 streptococc us group A, culture, throat 2022 [address] [place] [facility], [address] [place] [address], [place], [address], 10:06:25 Referral None recorded. Procedures None recorded. Surgeries None recorded. Imaging None recorded. Medication Orders None recorded. Patient TargetsNo targets recorded. Patient Instructions Encounter Date Encounter Id Patient Instructions Last Modified By Organization Details Last Modified Time 11/12/2022 [id number] sore throat: car e instructions Not available 11/12/2022 16:36:40 Based on your [...] 6. Severe Headache Thank you for using [facility] today, please feel free to contact our office if you have any questions or concerns. [email or web address] Not available 11/12/2022 16:20:01 Reason for Referral None Reported. Results Created Date Observation Date Name Description Value Unit Range Abnormal Flag Note LastModifiedBy Organization Detail LastModifiedTime 11/13/1911/15/2022 BETA STREP GP A CULTU RE beta strep gp A culture NEGATI VE Refer ence Range : Negat akash Not Available [facility] ([facility]) [address] [facility], [place], [address], 11/15/2022 10:06:25 11/13/19 23 11/12/2022 rapid strep group A, throa t Unknown Analyte Normal = Negati ve Not Available [address] [place] [address], [place], [address], 11/12/2022 16:15:14 11/13/19 23 11/12/2022 rapid strep group A, throa t Unknown Analyte negati ve Not Available [address] [facility], [place], [address], 11/12/2022 16:15:14 Result Notes None recorded. Problems Name Problem SNOMED Code Status Onset Date Resolution Date Notes Provider Name and Address Organization Details Recorded Time Multiple sclerosis [id number] Active 023 AMALIA Patricio [facility] 16:13:13 Problem Notes None recorded. Medical Equipment [...] Pulse oximetry Heart rate Body temperature Systolic And Diastolic Provider Name and Address Organization Details Last Updated DateTime 3 175.26 cm 28.6 kg/m2 42606.9 2 g 0 18 /min 97 % 97 % 85 /min 98.2 [degF] 104/68 mm[Hg] Portia HOLLAND - [facility] 16:14:50 Social History Question Answer Notes LastModified by [employer] Details LastModified Time Tobacco Smoking Status Never Smoker AMALIA Patricio [facility] 11/12/2022 16:13:20 Have You Had Direct Contact, Or Contact During Intimacy, With Monkeypox Rash, Scabs, Or Body Fluids From A Person With Monkeypox? No Information not available 11/12/2022 Have You Recently Traveled Abroad? No Information not available 11/12/2022 Sex: Unknown Functional Status Question Answer Note LastModified by [employer] Details LastModified Time Do you use any illicit or recreational drugs? No Information not available 11/12/2022 Do you or have you ever used any other forms of tobacco or nicotine? No Information not available 11/12/2022 What is your level of alcohol consumption? None Information not available 11/12/2022 Mental Status None recorded. Family History Relationship [...] Influenza, MDCK, quadrivalent, PF 2 completed Portia Swanquarter null, [place] - [facility] 11/12/2022 16:12:51 COVID-19, mRNA, LNP-S, PF, 30 mcg/0.3 mL dose 1 completed Portia Jerri null, [place] - [facility] 11/12/2022 16:12:51 COVID-19, mRNA, LNP-S, PF, 30 mcg/0.3 mL dose 1 completed Portia Swanquarter null, [place] - [facility] 11/12/2022 16:12:51 COVID-19, mRNA, LNP-S, PF, 30 mcg/0.3 mL dose, dell-sucrose 2 completed Portia Jerri null, [place] - [facility] 11/12/2022 16:12:51 COVID-19, mRNA, LNP-S, bivalent, PF, 30 mcg/0.3 mL dose 2 completed Portia Swanquarter null, [place] - [facility] 11/12/2022 16:12:51 Tdap 4 completed Portia Swanquarter null, [place] - [facility] 11/12/2022 16:12:51 HPV, quadrivalent 8 completed Portia Swanquarter null, [place] - [facility] 11/12/2022 16:12:51 HPV, quadrivalent 8 completed Portia Swanquarter null, [place] - [facility] 11/12/2022 16:12:51 HPV, quadrivalent 7 completed Portia Jerri null, [place] - [facility] 11/12/2022 16:12:51 Hep B, adult 9 completed Portia Swanquarter null, [place] - [facility] 11/12/2022 16:12:51 Hep B, adult 8 completed Portia Swanquarter null, [place] - [facility] 11/12/2022 16:12:51 Hep B, adult 8 completed Portia Jerri null, [place] - [facility] 11/12/2022 16:12:51 meningococcal MCV4P 7 completed Portia Swanquarter null, [place] - [facility] 11/12/2022 16:12:51 Influenza, split virus, quadrivalent, PF 1 completed Portia Swanquarter null, [place] - [facility] 11/12/2022 16:12:51 Past Encounters Encounter ID Performer Location Encounter Start Date Encounter Closed Date Diagnosis/Indication Diagnosis SNOMED-CT Code Diagnosis ICD10 Code Diagnosis IMO Codes Diagnosis Note [id number] [address] [place] [address] 06/12/2019 16:15:48 06/12/2019 18:47:48 [id number] [address] [place] [address] 01/21/2021 09:31:21 01/21/2021 11:49:25 [id number] [address] [place] [address] 04/19/2020 16:18:42 04/19/2020 19:21:27 [id number] [address] [place] [address] 05/13/2021 12:47:20 05/13/2021 15:05:53 [id number] [address] 03/03/2019 16:37:15 03/03/2019 16:53:56 [id number] [address] [place] [address] 01/14/2021 13:53:15 01/14/2021 15:01:55 [id number] [facility] [address] [address] 12/27/2020 17:51:06 12/27/2020 19:34:23 [id number] [address] [facility] [address] [place] [address] 01/24/2021 16:01:58 01/24/2021 16:06:[id number] [place] [address] [address] [address] 03/27/2019 15:36:08 03/27/2019 16:32:[id number] [place] [address] [address] [address] 02/28/2019 11:42:37 02/28/2019 12:44:01 [id number] [address] [facility] [address] [place] [address] 06/06/2020 12:06:43 06/06/2020 14:41:44 [id number] [address] [place] [address] 11/14/2019 18:24:29 11/14/2019 20:07:53 [id number] AMALIA MARTINEZ [address] [place] [address] 11/12/2022 14:11:10 11/12/2022 16:40:11 Acute pharyngitis [id number] J02.9 Health Concerns Section Related Observation LastModified by Organization Detai ls LastModified Time None Recorded Concern Status LastModified by Organization Details LastModified Time None Recorded Advance Directives Directive None Recorded Payers Insurance Date Sequence Insurance Name Policy Number Policy Davis Covered Member ID Davis Member ID Guarantor Name 11/12/2022 1 [facility] - HMO) JENNY Sylvia Theron Ocampo [id number] Sylvia Ocampo 11/12/2022 1 [facility]CTORCARE TYPE I (HMO) [id number] Sylvia Ocampo [id number] Sylvia Ocampo 11/12/2022 1 [facility] [id number] Sylvia Ocampo [id number] Sylvia Ocampo Notes Date Note Type Note Provider Name and Address Organization Details Recorded Time 11/12/2022 text/html Sore throatRepor hiram by PatientSore ThroatFor associated symptoms, patient reportssore throatbut reportsno cough,no sputum production,no shortness of breath,no wheezing,no sinus pain,no vomiting,no nausea, andno hoarseness. For context, patient reportssick contact. For modifying factors, patient reportsexposed to strep household *. For source of patient information, patient reportsinformation obtained from patientandpatient arrived at urgent care ambulatory. For location, patient reportsthroat. For severity, patient reportsmild. For onset/timing, patient reports2 days. For quality, (mild irritation- no bad.).The patient reports strep 1 month ago. Her boyfriend tested positive for strep yesterday. She just wanted to come in an be checked for strep. No fever. The patient states that she just has a little irritation but wouldn't call it a sore throat. No runny nose. Mild ear clog AMALIA MARTINEZ [address] [place], [address], [place] - [facility] 11/12/2022 17:00:54 OBGyn Episode No OBEpisode recorded.
--- OUTSIDE RECORDS SUMMARY | 2025-03-17 04:51 | XMS_ITS | Encounter Summary ---
Author Organization [facility] Address [address] [place] [address] Care Team Providers Care Machine Loader Name Role Phone Thang Carl MD Primary Care Provider Josh Mckinley, Pcp Primary Care Provider Daisy Cheema MD Primary Care Provider [phone] Encounter Details Date Type Department Care Team Description 12/10/2021 Pt. Non Urgent Medical Question Adult Medicine [address] [address] Poppy Daniels PA [address] [place] [address] Social History Tobacco Use Types Packs/Day Years [...] on filedocumented in this encounter Care Teams Machine Loader Relationship Specialty Start Date End Date Thang Carl MD PCP - General Internal Medicine 01/16/21 04/21/22 [facility], Pcp PCP - General Internal Medicine 04/22/22 05/31/22 Daisy Torrez MD [address] [place] [address] PCP - General Internal Medicine 06/01/22 documented as of this encounter
--- OUTSIDE RECORDS SUMMARY | 2025-03-17 04:51 | XMS_ITS | Encounter Summary ---
Author Organization [facility] Address [address] [place] [address] Care Team Providers Care Nurse Informatics Educator Name Role Phone Thang Carl MD Primary Care Provider Roxy Hubbard MD Primary Care Provider Thang Florentino MD Primary Care Provider Josh Mckinley, Pcp Primary Care Provider Daisy Cheema MD Primary Care Provider [phone] Encounter Details Date Type Department Care Team Description 06/15/2016 Labor Custodian Report Medical Records [address] [place] [address] Kenya Juárez Social History Tobacco Use Types [...] on filedocumented in this encounter Care Teams Nurse Informatics Educator Relationship Specialty Start Date End Date Thang Carl MD PCP - General Internal Medicine 10/12/13 06/24/19 Roxy Cruz MD PCP - General Internal Medicine 06/25/19 01/15/21 Thang Carl MD PCP - General Internal Medicine 01/16/21 04/21/22 [facility], Pcp PCP - General Internal Medicine 04/22/22 05/31/22 Daisy Torrez MD [address] [place] [address] PCP - General Internal Medicine 06/01/22 documented as of this encounter
--- OUTSIDE RECORDS SUMMARY | 2025-03-17 04:51 | XMS_ITS | Encounter Summary ---
Author Organization [facility] Address [address] [place] [address] Care Team Providers Care Clerical Proofreader Name Role Phone Thang Carl MD Primary Care Provider Roxy Hubbard MD Primary Care Provider Thang Florentino MD Primary Care Provider Josh Mckinley, Pcp Primary Care Provider Daisy Cheema MD Primary Care Provider [phone] Reason for Visit * Reason Onset Date Comments EKG 03/15/2016 Encounter Details Date Type Department Care Team Description 03/15/2016 Telephone Adult Medicine [address] [address] Thang Carl MD EKG Social History Tobacco [...] EST EKG done today and faxed to [facility] faxed to: [phone] * Telephone Encounter - Delfina Nolen - [...] 10:50 AM EST Patient was seen at [facility]. They sent her a letter and are asking her to get an EKG done. The patient would like a call back to schedule this please. documented in this encounter Plan of Treatment Not on file documented as of this encounter Visit Diagnoses Not on filedocumented in this encounter Care Teams Clerical Proofreader Relationship Specialty Start Date End Date Thang Carl MD PCP - General Internal Medicine 10/12/13 06/24/19 Roxy Cruz MD PCP - General Internal Medicine 06/25/19 01/15/21 Thang Carl MD PCP - General Internal Medicine 01/16/21 04/21/22 [facility], Pcp PCP - General Internal Medicine 04/22/22 05/31/22 Daisy Torrez MD [address] [place] [address] PCP - General Internal Medicine 06/01/22 documented as of this encounter
--- OUTSIDE RECORDS SUMMARY | 2025-03-17 04:51 | XMS_ITS | Encounter Summary ---
Author Organization [facility] Address [address] [place] [address] Care Team Providers Care Manager Search Name Role Phone Daisy Torrez MD Primary Care Provider [phone] Encounter Details Date Type Department Care Team Description 10/01/2022 Telephone [facility] [employer] [address] [place] [address] Mariana Bravo MD [address] [place] [address] [place] [address] Social History Tobacco Use Types Packs/Day Years [...] AM EDT documented as of this encounter Miscellaneous Notes * Telephone Encounter - Radha Ervin R.N. - 10/01/2022 9:58 AM EDT Call to patient; advised by Dr. Bravo that she can receive Augmentin, amoxicillin, or nitrofurantoin. No sulfa or cipro in . She will notify her neurologist. * Telephone Encounter - Mariana Bravo MD - 10/01/2022 9:53 AM EDT I have not heard of this issue as a result of using steroids, but if they feel she needs to be prophylaxed with something, or if she needs to be treated, they should use Augmentin, amox, or nitrofurantoin. No sulfa or cipro in . Thanks * Telephone Encounter - Radha Ervin R.N. - 10/01/2022 9:33 AM EDT Call to patient in response to call from [facility]; states her MS is flaring up and was told that she is more prone to uti's. States her neurologist is willing to prescribe cipro, as patient hasdone a urine culture at [place] today. And if rx needs to be changed, can change when urine cultureresults are posted. Advised will need to discuss with provider. * Telephone Encounter - Portia Chairez - 10/01/2022 9:18 AM EDT Otilia from the [facility] requests call back if patient can be prescribed bactrim for UTI. documented in this encounter Plan of Treatment Not on file documented as of this encounter Visit Diagnoses Not on filedocumented in this encounter Care Teams Manager Search Relationship Specialty Start Date End Date Daisy Torrez MD [address] [place] [address] PCP - General Internal Medicine 06/01/22 documented as of this encounter
--- OUTSIDE RECORDS SUMMARY | 2025-03-17 04:51 | XMS_ITS | Encounter Summary ---
Author Organization [facility] Address [address] [place] [address] Care Team Providers Care Manager Advertising Name Role Phone Thang Carl MD Primary Care Provider Roxy Hubbard MD Primary Care Provider Thang Florentino MD Primary Care Provider Josh Mckinley, Pcp Primary Care Provider Daisy Cheema MD Primary Care Provider [phone] Encounter Details Date Type Department Care Team Description 01/08/2014 Release of Information Medical Records [address] [place] [address] Abstract, Provider Social History Tobacco Use Types [...] filedocumented in this encounter Care Teams Manager Advertising Relationship Specialty Start Date End Date Thang Carl MD PCP - General Internal Medicine 10/12/13 06/24/19 Roxy Cruz MD PCP - General Internal Medicine 06/25/19 01/15/21 Thang Carl MD PCP - General Internal Medicine 01/16/21 04/21/22 [facility], Pcp PCP - General Internal Medicine 04/22/22 05/31/22 Daisy Torrez MD [address] [place] [address] PCP - General Internal Medicine 06/01/22 documented as of this encounter
--- OUTSIDE RECORDS SUMMARY | 2025-03-17 04:51 | XMS_ITS | Encounter Summary ---
Author Organization [facility] Address [address] [place] [address] Care Team Providers Care Training Representative Name Role Phone Daisy Torrez MD Primary Care Provider [phone] Encounter Details Date Type Department Care Team Description 08/30/2022 Orders Only Medical Records [address] [place] [address] Abstract, Provider Social History Tobacco Use Types [...] on filedocumented in this encounter Care Teams Training Representative Relationship Specialty Start Date End Date Daisy Torrez MD [address] [place] [address] PCP - General Internal Medicine 06/01/22 documented as of this encounter
--- OUTSIDE RECORDS SUMMARY | 2025-03-17 04:51 | XMS_ITS | Encounter Summary ---
Author Organization [facility] Address [address] [place] [address] Care Team Providers Care Wound Care Rn Name Role Phone Thang Carl MD Primary Care Provider Roxy Hubbard MD Primary Care Provider Thang Florentino MD Primary Care Provider Josh Mckinley, Pcp Primary Care Provider Daisy Cheema MD Primary Care Provider [phone] Encounter Details Date Type Department Care Team Description 06/07/2014 Environmental Health Nurse Report Medical Records [address] [place] [address] Jeronimo Aaron MD Social History Tobacco Use [...] on filedocumented in this encounter Care Teams Wound Care Rn Relationship Specialty Start Date End Date Thang Carl MD PCP - General Internal Medicine 10/12/13 06/24/19 Roxy Cruz MD PCP - General Internal Medicine 06/25/19 01/15/21 Thang Carl MD PCP - General Internal Medicine 01/16/21 04/21/22 [facility] PCP - General Internal Medicine 04/22/22 05/31/22 Daisy Torrez MD [address] [place] [address] PCP - General Internal Medicine 06/01/22 documented as of this encounter
[2025-03-17 04:52] LABS: MANUAL DIFF FLAG NO
[2025-03-17 04:56] LABS: Hematocrit 38.6 % (37.0-47.0); Hemoglobin 12.7 g/dl (12.0-16.0); Imm Gran Abs Auto 0.04 X10*3/uL (0.00-0.03); Imm Gran Pct Auto 0.6 % (0.0-0.4); Lymphocytes Absolute Auto 1.2 X10*3/uL (1.2-4.9); Mean Corpuscular HGB Conc 32.9 g/dl (31.0-35.0); Mean Corpuscular Hemoglobin 29.7 pg (27.0-33.0); Mean Corpuscular Volume 90.2 fL (80.0-98.0); NRBC Abs Auto 0.000 X10*3/uL (0.0-0.012); NRBC Pct Auto 0.0 /100WBC (0.0-0.2); Platelet Count 257 X10*3/uL (160-400); Red Blood Count 4.28 X10*6/uL (4.20-5.50); White Blood Count 7.1 X10*3/uL (4.8-10.8)
[2025-03-17 05:06] LABS: Alanine Aminotransferase 20 U/L (0-31); Albumin Level 4.4 g/dL (3.5-5.0); Alkaline Phosphatase 65 U/L (39-117); Anion Gap 12 (12-20); Aspartate Amino Transferase 18 U/L (5-31); Blood Urea Nitrogen 10 mg/dL (9-16); Calcium 9.2 mg/dL (8.4-10.2); Carbon Dioxide 26 mmol/L (22-29); Chloride 107 mmol/L (96-108); Creatinine Clr Calc Pharmacy 157.7; Estimated Glomerular Filt Rate > 60; Potassium 4.2 mmol/L (3.3-5.1); Sodium 141 mmol/L (135-145); Total Protein 6.8 g/dL (6.5-8.0)
--- NOTE | 2025-03-17 07:56 | ED_ITS ---
HPI - General Adult General Chief complaint: Abdominal Pain Stated complaint: abd pain Time Seen by Provider: 03/17/25 07:53 Source: patient Mode of arrival: ambulatory Limitations: no limitations History of Present Illness ED Provider: Matilde Landers PA-C HPI narrative: Patient is a 34 year old assigned female at with a history of MS presenting to the emergency department today with lower abdominal pain, bloating, and pain with intercourse. Patient states that over the last 3 weeks she has had abdominal pain /cramping with bloating. Patient states that her abdominal pain is significantly worse when she pushes down then lets go and with intercourse. Patient denies any other complaints at this time. Related Data Home Medications ?Medication ?Instructions ?Recorded ?Confirmed sertraline 50 mg tablet 50 mg PO DAILY 05/16/2312/30 Previous Rx's ?Medication ?Instructions ?Recorded nitrofurantoin 100 mg PO BID #14 caps 05/04 monohydrate/macrocrystals 100 mg capsule (Macrobid) metronidazole 500 mg tablet 500 mg PO BID 7 days #14 t abs 08/18/24 nitrofurantoin 100 mg PO BID 7 days #14 cap s 08/18/24 monohydrate/macrocrystals 100 mg capsule (Macrobid) doxycycline hyclate 100 mg tablet 100 mg PO BID 7 days #14 tabs 03/17/25 metronidazole 500 mg tablet 500 mg PO BID 7 days #14 t abs 03/17/25 Allergies Allergy/AdvReac Type Severity Reaction Status Date / Time Iodinated Contrast Media Allergy Hives Verified 03/17/25 04:35 (Contrast Dye) Review of Systems 2 Constitutional: Constitutional: Reports as per HPI Eyes: Eyes: Reports as per HPI ENT: Reports as per HPI Cardiovascular: Cardiovascular: Reports as per HPI Respiratory: Respiratory: Reports as per HPI Gastrointestinal: Gastrointestinal: Reports as per HPI Genitourinary: Genitourinary: Reports as per HPI Musculoskeletal: Musculoskeletal: Reports as per HPI Integumentary/Breasts: Skin/Breast: Reports as per HPI Neurologic: Reports as per HPI Psychiatric: Psychiatric: Reports as per HPI Endocrine: Endocrine: Reports as per HPI Hematologic/Lymphatic: Hematologic/Lymphatic: Reports as per HPI Allergic/Immunologic: Allergic/Immunologic: Reports as per HPI [facility] Past Medical History Attestation statement: The following information was validated with the patient. Source: old records reviewed and nursing notes reviewed Medical History Multiple sclerosis No known health problems Social History Social History Alcohol intake: current Alcohol intake frequency: a few times a week Alcohol type: wine Patient Tobacco Use Status: Never used Tobacco service: No Physical Exam ED Vital Signs: Vital Signs - 24 hr 03/17/25 04:33 03/17/25 09:29 03/17/25 12:13 Temperature 97.5 F 98.4 F 98.5 F Pulse Rate 91 71 74 Respiratory Rate 16 18 19 Blood Pressure 114/62 108/64 120/73 Pulse Oximetry 99 100 100 Oxygen Delivery Method Room Air Room Air Room Air 03/17/25 12:30 Temperature 98.5 F Pulse Rate 74 Respiratory Rate 19 Blood Pressure 120/73 Pulse Oximetry 100 Oxygen Delivery Method Room Air BMI result Body Mass Index 28.2 Const General: cooperative, no acute distress, alert and awake Nutritional Appearance: well nourished Orientation/consciousness: patient oriented x3 HENMT Head: Yes normal to inspection and Yes atraumatic Ears: hearing grossly normal bilaterally and external ears normal General nose exam: Normal external nose present, no nasal discharge noted and no epistaxis Face and sinus: Yes normal facial exam, No abrasion and No laceration Mouth: Normal oral and palatal mucosa present, no drooling and no muffled voice Eyes General: appearance normal, both eyes and all related structures Periorbital: periorbital findings normal Eyelids: Yes eyelids normal Conjunctivae: conjunctivae normal Pupils: Equal, round and reactive pupils present EOM: EOMs intact bilaterally Neck Neck: Yes normal visual inspection and Yes full ROM Resp Effort & Inspection: normal respiratory effort and able to speak in complete sentences Neuro General: patient oriented x3, moves all extremities and CN's II-XI intact bilaterally Cranial nerves: Yes Equal, round and reactive pupils present Cognition (Neuro): normal cognition Extrem General: Yes normal to inspection, Yes full ROM and Yes capillary refill normal Psych Appearance: grossly normal Mental Status: mental status grossly normal Affect: normal affect Attitude: cooperative Thought process: Normal thought process present Thought content: Normal thought content present Insight: Good insight present (Psych) Medications Administered Discontinued Medications Generic Name Dose Route Start Last Admin Trade Name Freq PRN Reason Stop Dose Admin Doxycycline Monohydrate 100 mg 03/17/25 12:05 03/17/25 12:10 Doxycycline Monohydrate 100 Mg Capsule PO 03/17/25 12:06 100 mg ONCE ONE Administration Sodium Chloride 1,000 mls @ 999 mls/hr 03/17/25 08:15 03/17/25 09:33 Ns IV 03/17/25 09:15 Infused .Q1H1M BERNARDA Infusion Ceftriaxone Sodium 1 gm/ 50 mls @ 100 mls/hr 03/17/25 12:05 03/17/25 12:10 Sodium Chloride IV 03/17/25 12:34 100 mls/hr ONCE ONE Administration Iohexol 100 ml 03/17/25 09:17 03/17/25 09:18 Iohexol 350 Mg/Ml 100 Ml Infus..Btl IV 03/17/25 09:18 85 ml ONCE ONE Administration Ketorolac Tromethamine 15 mg 03/17/25 08:07 03/17/25 08:15 Ketorolac Tromethamine 15 Mg/Ml Vial IVPUSH 03/17/25 08:08 15 mg ONCE ONE Administration Metronidazole 500 mg 03/17/25 12:05 03/17/25 12:10 Metronidazole 500 Mg Tablet PO 03/17/25 12:06 500 mg ONCE ONE Administration Medical Decision Making Medical Decision Making [facility] Narrative: Patient is a 34 year old assigned female at with a history of MS presenting to the emergency department today with lower abdominal pain, bloating, and pain with intercourse. Patient's physical exam was as noted in the physical exam portion of this note. Patient's blood work was unremarkable. Patient's urine showed no acute process. Patient's CT abd/pelvis showed no acute process. Patient's clinical presentation is concerning for PID given her pain with intercourse + lower abdominal pain. I explained my physical exam findings as well as all test results to the patient. I answered all questions asked by the patient. I stressed the importance of the patient taking her medication as directed (either prescribed or as the over the counter packaging recommends). I stressed the importance of the patient following up with her primary care provider. I stressed the importance of the patient returning to the emergency department immediately if her symptoms were to worsen or if she were to develop any dizziness, shortness of breath, difficulty breathing, chest pain, blurry vision, loss of vision, nausea, vomiting, abdominal pain, fever, chills, back pain, or any other complaints. Patient verbalized agreement and understanding with this treatment plan and discharge. Differential Diagnosis Differential Diagnoses: The differential diagnosis associated with the presentation includes PID Abdominal pain Ovarian cyst rupture Pelvic pain Admission/Observation Consideration of admission/observation: Escalation of care including admission/observation considered Patient would have been admitted to the hospital had her work up had any findings where hospital admission was appropriate and her clinical presentation warranted hospital admission. Lab Data [facility] Lab Attestation statement: I reviewed the patient's lab results. My interpretation of these results are in the [facility] Rationale portion of this note. 03/17/25 04:46 03/17/25 04:46 Labs: Lab Results 03/17/25 03/17/25 Range/Units 04:46 10:16 WBC 7.1 (4.8-10.8) X10*3/uL RBC 4.28 (4.20-5.50) X10*6/uL Hgb 12.7 (12.0-16.0) g/dl Hct 38.6 (37.0-47.0) % MCV 90.2 (80.0-98.0) fL MCH 29.7 (27.0-33.0) pg MCHC 32.9 (31.0-35.0) g/dl RDW 12.2 (11.0-16.0) % Plt Count 257 (160-400) X10*3/uL MPV 10.8 (9.4-12.3) fL Immature Gran % (Auto) 0.6 H (0.0-0.4) % Neut % (Auto) 70.7 (45-73) % Lymph % (Auto) 16.6 L (20-40) % [place] % (Auto) 9.6 (2-11) % Eos % (Auto) 1.8 (0-4) % Baso % (Auto) 0.7 (0-2) % Lymph # (Auto) 1.2 (1.2-4.9) X10*3/uL [place] # (Auto) 0.7 (0.1-1.2) X10*3/uL Eos # (Auto) 0.1 (0.0-0.4) X10*3/uL Baso # (Auto) 0.1 (0.0-0.2) X10*3/uL Abs Immat Gran (auto) 0.04 H (0.00-0.03) X10*3/uL Absolute Neuts (auto) 5.0 (2.0-8.3) x10*3/uL Absolute Nucleated RBC 0.000 (0.0-0.012) X10*3/uL Nucleated RBC % (auto) 0.0 (0.0-0.2) /100WBC Sodium 141 (135-145) mmol/L Potassium 4.2 (3.3-5.1) mmol/L Chloride 107 (96-108) mmol/L Carbon Dioxide 26 (22-29) mmol/L Anion Gap 12 (12-20) BUN 10 (9-16) mg/dL Creatinine 0.59 (0.5-1.4) mg/dL Estim Creat Clear Calc 157.7 Estimated GFR > 60 Random Glucose 88 (60-115) mg/dL Calcium 9.2 (8.4-10.2) mg/dL Total Bilirubin 0.1 (0.0-1.0) mg/dL AST 18 (5-31) U/L ALT 20 (0-31) U/L Alkaline Phosphatase 65 (39-117) U/L Total Protein 6.8 (6.5-8.0) g/dL Albumin 4.4 (3.5-5.0) g/dL Beta HCG, Quant < 2 mIU/mL Urine Color Yellow Urine Appearance Clear Urine pH 7.0 (5.0-9.0) Ur Specific [place] >= 1.030 H (1.005-1.025) Urine Protein 30 (1+) H (Neg-Trace) mg/dL Urine Glucose (UA) Negative (Negative) mg/dL Urine Ketones Negative (Negative) mg/dL Urine Blood Negative (Negative) Urine Nitrite Negative (Negative) Ur Leukocyte Esterase Negative (Negative) Urine RBC 0-2 (0-2) /HPF Urine WBC 0-5 (0-5) /HPF Ur Squamous Epith Cells 3-5 (0-2) /HPF Urine Bacteria None Seen (None Seen) Hyaline Casts 0-2 (0-2) /LPF Independent Interpretation I performed an independent interpretation of an: CT Scan Interpretation: My interpretation is in agreement with the radiologist's impression of this imaging study. L Report Number: [id number]: Total DLP = 755.00 mGy-cm Reason for Exam: lower abdominal pain, concern for appy CLINICAL HISTORY: lower abdominal pain, concern for appy CT abdomen and pelvis with IV contrast Comparison: CT - CT ABDOMEN PELVIS W IV CON - 03/17/25 09:[address]/SR - CT ABDOMEN PELVIS WO IV CON - 08/18/24 10:48 EDT Findings: Lung bases show no active disease. No dependent layering pleural effusions. The heart is not enlarged. Liver normal size and contour. No focal hepatic lesions. Patent hepatic and portal veins. Physiologic distention of the gallbladder with no radiopaque gallstones. Homogeneous enhancement of the pancreas. No splenomegaly. Normal adrenal glands. Symmetrical renal excretion with no segmental or diffuse renal parenchymal disease or evidence of obstructive uropathy/hydroureteronephrosis. Normal caliber abdominal aorta. Bowel demonstrates a nonobstructive pattern. No free air. Normal appendix and terminal ileum. Increased stool burden.No significant diverticular disease. No intraperitoneal, retroperitoneal, pelvic or inguinal masses lymphadenopathy or abnormal fluid collections. Normal CT appearance right ovary. 3 cm probable cyst left adnexa. Partially decompressed urinary bladder. No vertebral body compression fractures or spondylolisthesis. No bony destructive lesions. Impression: 1. Normal appendix and terminal ileum. Increased stool burden. 2. No renal parenchymal disease or evidence of obstructive uropathy. Normal CT appearance of the right ovary. Probable cyst left adnexa. 3. Hepatic steatosis. No radiopaque gallstones. This document has been electronically signed by: Roshan Prabhakar MD on 03/17/2025 11:57:47 Dictated By: Roshan Prabhakar MD Signed By: Electronically signed by Roshan Prabhakar MD 03/17/25 1158 Radiology Impression Discussion of test interpretation with radiology: I have reviewed the radiologist's reading. Prescription Management I considered prescription management with: Antibiotic (patient prescribed antibiotics to cover for PID) Discharge Plan Discharge Clinical Impression: Pelvic pain Patient Disposition: Home, Self-Care Instructions: Pelvic Pain (ED) Additional Instructions: Your work up today showed no EMERGENT cause for your symptoms. You CT scan showed a small left ovarian cyst but no evidence of rupture for it to be causing your pain. I am concerned you have cervical inflammation + possible pelvic inflammatory disease. I have prescribed you antibiotics for this, please take them as prescribed. IF you are prescribed home medications and/or you are taking over the counter medications at home - it is very important you continue to do so as prescribed / directed unless told otherwise. Follow up with your primary care provider and your OBGYN. Return to the emergency department immediately if your symptoms worsen or if you develop any numbness, tingling, dizziness, shortness of breath, difficulty breathing, chest pain, blurry vision, loss of vision, nausea, vomiting, abdominal pain, fever, chills, back pain, or any other complaints. Please see the information below about our Patient Portal. If you are not yet enrolled in the [facility] Patient Portal, you will receive an enrollment email invitation following your visit to any [facility] care setting. You may also self-enroll in the Patient Portal by visiting our website: [email or web address] The following information is required to access the Patient Portal: - Your [facility] Medical Record Number - Your personal home email address (must match what is in your electronic medical record, Registration staff can assist with this) - Name - Date of Capabilities of the Patient Portal: - Message some providers - View upcoming appointments - Access your health summary, medical history, and visit history - View current conditions and allergies - View procedure and lab results - View your medications, including guidelines, side effects, and precautions - Complete pre-appointment questionnaires requested by your provider - Ready summary reports of your office visits and procedures To access the Patient Portal Mobile [facility], follow these directions: - Search dot[employer] in the [employer] Store or [employer] Store - Download the [facility] - Search for [facility] - Enter your login/password Prescriptions: New metronidazole 500 mg tablet 500 mg PO BID 7 Days Qty: 14 0RF doxycycline hyclate 100 mg tablet 100 mg PO BID 7 Days Qty: 14 0RF No Action sertraline 50 mg tablet 50 mg PO DAILY nitrofurantoin monohyd/m-cryst [Macrobid] 100 mg capsule 100 mg PO BID Qty: 14 0RF Rx Instructions: must administer with a meal/food nitrofurantoin monohyd/m-cryst [Macrobid] 100 mg capsule 100 mg PO BID 7 Days Qty: 14 0RF Rx Instructions: must administer with a meal/food metronidazole 500 mg tablet 500 mg PO BID 7 Days Qty: 14 0RF Referrals: Daisy Torrez MD [Primary Care Provider, Internal Medicine] Stand Alone Forms: Work/School Release Interventions: ED Discharge Assessment Last Done: 03/17/25 12:30 Discharge Date/Time: 03/17/25 12:30 Print Language: [place] Islander
[2025-03-17] MEDS: iohexoL 350 MG/ML 100 ML INFUS..BTL IV (09:18)
[2025-03-17 09:29] VITALS: BP 108/64; PULSE 71; RESP 18; TEMP 36.9; O2SAT 100
[2025-03-17 10:25] LABS: Appearance Urine Clear; Glucose Urine UA Negative (Negative); PH 7.0 (5.0-9.0); Specific Gravity - Urine >= 1.030 (1.005-1.025); UMIC TRIGGER UACC YES
[2025-03-17 12:13] VITALS: BP 120/73; PULSE 74; RESP 19; TEMP 36.9; O2SAT 100
[2025-03-17 12:30] VITALS: BP 120/73; PULSE 74; RESP 19; TEMP 36.9; O2SAT 100
[2025-03-17 15:01] LABS: Bacterial Vaginosis PCR POSITIVE (Negative); Candida Group PCR NOT DETECTED (Not Detect); Candida glab krusei PCR NOT DETECTED (Not Detect); Trichomonas vaginalis PCR NOT DETECTED (Not Detect)
[2025-03-17 15:32] LABS: CT PCR NOT DETECTED (Not Detect.); NG PCR NOT DETECTED (Not Detect.)
== END 2025-03-17 12:30 | disposition home or self-care (01) ==
PROVIDERS: Physician Assistant Medical; Emergency Provider Emergency Medicine Emergency Medical Services; PCP Internal Medicine
DX: R10.20 Pelvic and perineal pain unspecified side (principal); R11.0 Nausea; Z79.899 Other long term (current) drug therapy
CPT/HCPCS: 36415; 74177; 80053; 81001; 81515; 84702; 85025; 87491; 87591; 96361; 96374; 96375; 99285; J0696; J1885; Q9967

== ENCOUNTER → 2025-03-17 08:07 | Outpatient (BNV) | payer OTHER, SELFPAY | PROVIDERS: PCP Internal Medicine; Visit Provider Radiology Diagnostic Radiology | DX: K76.0 Fatty (change of) liver, not elsewhere classified (principal) | CPT/HCPCS: 74177 ==